=== PATIENT | male | born 1945 | race Caucasian/White ===

== ENCOUNTER 2018-03-14 18:28 | Inpatient (IN) | payer MEDICARE, SELFPAY ==
[2018-03-14 18:31] VITALS: BP 154/89; PULSE 121; RESP 18; TEMP 37.8; O2SAT 97; BMI 26.8
--- NOTE | 2018-03-14 19:04 | ED.LOWEXIN ---
HPI - Extremity Injury (Lower) <Shaunna Garcia PA-C - Last Filed: 03/14/18 22:30> General Chief Complaint: Extremity Injury, Lower Stated Complaint: LEFT FOOT ULCER Time Seen by Provider: 03/14/18 18:52 Source: patient Mode of arrival: ambulatory Limitations: no limitations History of Present Illness HPI Narrative: This 72-year-old male comes in due to great toe wound and infection on his left foot . He states that [place] couple of days ago with pain and swelling. He states that blood clot was ruled out. He was found to have high blood sugars, started on metformin, also given prescriptions for Keflex and doxycycline and given IV abx as well. He states that the swelling in his leg is actually better today and he thinks that his temperature was high when he came in because he was blasting the heater in his truck. He states that he has not had fever at home. He states that the toe and leg are slightly stiff, not painful. He denies any other new symptoms such as chest pain, dyspnea, or vomiting. He denies any known injury or contusions. He states he came in due to the area looking more red today. He did have foot fungus recently, denies any trauma Related Data Home Medications Medication Instructions Recorded Confirmed cephalexin 500 mg PO QID 03/14/18 03/14/18 doxycycline monohydrate 100 mg PO BID 03/14/18 03/14/18 metformin 500 mg PO BID 03/14/18 03/14/18 oxycodone 10 mg PO QID PRN 03/14/18 03/14/18 Allergies Allergy/AdvReac Type Severity Reaction Status Date / Time dexamethasone Allergy Verified 03/14/18 18:31 quinine Allergy Verified 03/14/18 18:31 Sulfa (Sulfonamide Allergy Verified 03/14/18 18:31 Antibiotics) Review of Systems <IFTIKHAR Joy Last Filed: 03/14/18 22:30> Review of Systems All systems reviewed & are unremarkable except as noted in HPI and below PFSH <IFTIKHAR Joy Last Filed: 03/14/18 22:30> Comment: Nonsmoker, no street drugs or EtOH Exam <IFTIKHAR Joy Last Filed: 03/14/18 22:30> Narrative Exam Narrative: GENERAL APPEARANCE: Patient sitting comfortably, in no distress. NECK/THYROID: Neck supple LUNGS: Clear to auscultation bilaterally. HEART: Regular rate and rhythm without murmur, normal S1, S2, no S3 or S4. ABDOMEN: Soft, NT, ND, + BS x 4 quadrants EXTREMITIES: No cyanosis or edema on the right. Left is moderately edematous, there is some dusky discoloration at the distal right great toe. No calf tenderness. PT and DP pulses audible with Doppler NEUROLOGIC: Alert and oriented, normal speech, and coordination. DERMATOLOGIC: Left great toe is edematous, macerated, with a small shallow scabbed ulceration on the dorsum, and a wound in the interdigital space that is approximately 5 mm deep with probe. There is erythema extending from the great toe more than 20 cm up the central karimi and medial karimi, non circumferential, also warm to touch Initial Vital Signs Initial Vital Signs: Vital Signs Temperature 100.1 F H 03/14/18 18:31 Pulse Rate 121 H 03/14/18 18:31 Respiratory Rate 18 03/14/18 18:31 Blood Pressure 154/89 H 03/14/18 18:31 Pulse Oximetry 97 03/14/18 18:31 <Tamanna Glez DO - Last Filed: 03/14/18 23:12> Initial Vital Signs Initial Vital Signs: Vital Signs Temperature 100.1 F H 03/14/18 18:31 Pulse Rate 121 H 03/14/18 18:31 Respiratory Rate 18 03/14/18 18:31 Blood Pressure 154/89 H 03/14/18 18:31 Pulse Oximetry 97 03/14/18 18:31 Course <Shaunna Garcia PA-C - Last Filed: 03/14/18 22:30> Additional Information: 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 Ferrell electronics design engineer hospitalist, reviewed patient's new diagnosis of diabetes, elevated inflammatory markers, fever, tachycardia along with concern for osteomyelitis with clearly worsening cellulitis on antibiotics. He is agreeable with admission. He requested d/c Metformin and change to SS insulin. Second dose of vancomycin was ordered for morning along with MRI. Patient is not having increased pain and can take his usual oxycodone for pain. Diabetic diet ordered. Plan now is for hospitalist to see patient in a.m. and consult orthopedics pending f/u testing and MRI. Orders Ordered: ED Orders 03/14/18 19:09 XR foot LT min 3V Stat 03/14/18 20:14 Blood Culture Stat 03/14/18 20:18 C-Reactive Protein Quant Stat Complete Blood Count AUTO DIFF Stat Comprehensive Metabolic Panel Stat Erythrocyte Sedimentation Rate Stat Lactate (Lactic Acid) Stat Partial Thromboplastin Time Stat Prothrombin Time INR Stat Urine Microscopic Stat 03/14/18 21:00 Wound Culture and Gram Stain Stat 03/15/18 07:00 MR foot LT wo/w con Stat Dextrose (D50w) 25 gm IV PRN PRN; Protocol PRN Reason: Hypoglycemia Sodium Chloride (Normal Saline 0.9%) 1,000 mls @ 125 mls/hr IV CONT FAVIAN Last Admin: 03/14/18 22:51 Dose: 125 mls/hr Vancomycin HCl/Dextrose (Vancomycin) 1,000 mg in 200 mls @ 200 mls/hr IV Q24H FAVIAN Insulin Aspart (Novolog Flexpen) 0 unit SUBCUT ACHS FAVIAN; Protocol Oxycodone HCl (Percolone) 10 mg PO QID PRN PRN Reason: Back Pain Last Admin: 03/14/18 22:56 Dose: 10 mg Discontinued Medications Sodium Chloride (Normal Saline 0.9%) 1,000 mls @ 1,000 mls/hr IV BOLUS ONE Stop: 03/14/18 20:07 Last Infusion: 03/14/18 21:50 Dose: 0 mls/hr Admin: 03/14/18 19:50 Dose: 1,000 mls/hr Vancomycin HCl 1,500 mg/ (Sodium Chloride) 500 mls @ 333.333 mls/hr IV NOW ONE Stop: 03/14/18 19:51 Last Infusion: 03/14/18 22:25 Dose: 333.333 mls/hr Admin: 03/14/18 20:29 Dose: 333.333 mls/hr Vancomycin HCl 1,500 mg/ (Sodium Chloride) 500 mls @ 333.333 mls/hr IV [facility] Vital Signs - 8 hr 03/14/18 18:31 03/14/18 19:44 03/14/18 19:47 Temperature 100.1 F H 100.5 F H Pulse Rate 121 H 108 H Pulse Rate [Left Dorsalis Pedis] 106 H Respiratory Rate 18 19 Blood Pressure 154/89 H Blood Pressure [Right Arm] 149/88 H Pulse Oximetry 97 99 03/14/18 20:06 03/14/18 21:21 03/14/18 22:26 Temperature 98.7 F 99.1 F Pulse Rate 101 H 96 H 75 Pulse Rate [Left Dorsalis Pedis] Respiratory Rate 18 20 18 Blood Pressure 139/74 Blood Pressure [Right Arm] 166/99 H 154/83 H Pulse Oximetry 100 99 100 <Tamanna Glez, - Last Filed: 03/14/18 23:12> Orders Ordered: ED Orders 03/14/18 19:09 XR foot LT min 3V Stat 03/14/18 20:14 Blood Culture Stat 03/14/18 20:18 C-Reactive Protein Quant Stat Complete Blood Count AUTO DIFF Stat Comprehensive Metabolic Panel Stat Erythrocyte Sedimentation Rate Stat Lactate (Lactic Acid) Stat Partial Thromboplastin Time Stat Prothrombin Time INR Stat Urine Microscopic Stat 03/14/18 21:00 Wound Culture and Gram Stain Stat 03/15/18 07:00 MR foot LT wo/w con Stat Dextrose (D50w) 25 gm IV PRN PRN; Protocol PRN Reason: Hypoglycemia Sodium Chloride (Normal Saline 0.9%) 1,000 mls @ 125 mls/hr IV CONT FAVIAN Last Admin: 03/14/18 22:51 Dose: 125 mls/hr Vancomycin HCl/Dextrose (Vancomycin) 1,000 mg in 200 mls @ 200 mls/hr IV Q24H [facility] Insulin Aspart (Novolog Flexpen) 0 unit SUBCUT ACHS F[facility]IAN; Protocol Oxycodone HCl (Percolone) 10 mg PO QID PRN PRN Reason: Back Pain Last Admin: 03/14/18 22:56 Dose: 10 mg Discontinued Medications Sodium Chloride (Normal Saline 0.9%) 1,000 mls @ 1,000 mls/hr IV BOLUS ONE Stop: 03/14/18 20:07 Last Infusion: 03/14/18 21:50 Dose: 0 mls/hr Admin: 03/14/18 19:50 Dose: 1,000 mls/hr Vancomycin HCl 1,500 mg/ (Sodium Chloride) 500 mls @ 333.333 mls/hr IV NOW ONE Stop: 03/14/18 19:51 Last Infusion: 03/14/18 22:25 Dose: 333.333 mls/hr Admin: 03/14/18 20:29 Dose: 333.333 mls/hr Vancomycin HCl 1,500 mg/ (Sodium Chloride) 500 mls @ 333.333 mls/hr IV SEEINSTR [facility] Vital Signs - 8 hr 03/14/18 18:31 03/14/18 19:44 03/14/18 19:47 Temperature 100.1 F H 100.5 F H Pulse Rate 121 H 108 H Pulse Rate [Left Dorsalis Pedis] 106 H Respiratory Rate 18 19 Blood Pressure 154/89 H Blood Pressure [Right Arm] 149/88 H Pulse Oximetry 97 99 03/14/18 20:06 03/14/18 21:21 03/14/18 22:26 Temperature 98.7 F 99.1 F Pulse Rate 101 H 96 H 75 Pulse Rate [Left Dorsalis Pedis] Respiratory Rate 18 20 18 Blood Pressure 139/74 Blood Pressure [Right Arm] 166/99 H 154/83 H Pulse Oximetry 100 99 100 MDM - Extremity Injury (Lower) <Shaunna Garcia PA-C - Last Filed: 03/14/18 22:30> Lab Data Result diagrams: 03/14/18 20:18 03/14/18 20:18 Lab Results 03/14/18 03/14/18 03/14/18 Range/Units 20:18 20:18 20:18 WBC 11.5 H (4.5-11.0) X10^3/uL RBC 4.02 L (4.5-5.9) X10^6/uL Hgb 11.8 L (13.5-17.5) g/dL Hct 35.7 L (41-53) % MCV 88.9 (80-100) fL MCH 29.3 (26-34) PG MCHC 33.0 (30-36) % RDW 13.7 (11.6-14.8) % Plt Count 330 (150-400) X10^3/uL Neut % (Auto) 79.0 H (50-75) % Lymph % (Auto) 9.4 L (25-40) % Stark % (Auto) 10.4 (3-14) % Eos % (Auto) 0.6 L (2-4) % Baso % (Auto) 0.6 (0-2) % Neut # (Auto) 9100 H (6756-8668) /uL ESR (0-15) MM/HR PT 13.6 H (10.1-12.7) SECONDS INR 1.3 (0.9-1.3) APTT 29 (26.4-36.2) SECONDS Sodium (137-145) mmol/L Potassium (3.4-5.1) mmol/L Chloride (98-107) mmol/L Carbon Dioxide (22-32) mmol/L BUN (9-20) mg/dL Creatinine (0.66-1.25) mg/dL Estimated GFR (>60) mL/min BUN/Creatinine Ratio (6-22) Glucose (80-110) mg/dL Lactate 1.8 (0.7-2.1) mmol/L Calcium (8.4-10.2) mg/dL Total Bilirubin (0.2-1.3) mg/dL AST (17-59) IU/L ALT (21-72) IU/L Alkaline Phosphatase (38-126) U/L C-Reactive Protein (<1.0) mg/dL Total Protein (6.3-8.2) g/dL Albumin (3.5-5.0) g/dL Globulin (1.7-4.1) g/dL Albumin/Globulin Ratio (1.0-2.8) Urine RBC (0-5/HPF) Urine WBC (0-5/HPF) Ur Squamous Epith Cells Urine Bacteria (None) Ur Culture Indicated? Micro UA Comment 03/14/18 03/14/18 03/14/18 Range/Units 20:18 20:18 20:18 WBC (4.5-11.0) X10^3/uL RBC (4.5-5.9) X10^6/uL Hgb (13.5-17.5) g/dL Hct (41-53) % MCV (80-100) fL MCH (26-34) PG MCHC (30-36) % RDW (11.6-14.8) % Plt Count (150-400) X10^3/uL Neut % (Auto) (50-75) % Lymph % (Auto) (25-40) % Stark % (Auto) (3-14) % Eos % (Auto) (2-4) % Baso % (Auto) (0-2) % Neut # (Auto) (7468-4410) /uL ESR 79 H (0-15) MM/HR PT (10.1-12.7) SECONDS INR (0.9-1.3) APTT (26.4-36.2) SECONDS Sodium (137-145) mmol/L Potassium (3.4-5.1) mmol/L Chloride (98-107) mmol/L Carbon Dioxide (22-32) mmol/L BUN (9-20) mg/dL Creatinine (0.66-1.25) mg/dL Estimated GFR (>60) mL/min BUN/Creatinine Ratio (6-22) Glucose (80-110) mg/dL Lactate (0.7-2.1) mmol/L Calcium (8.4-10.2) mg/dL Total Bilirubin (0.2-1.3) mg/dL AST (17-59) IU/L ALT (21-72) IU/L Alkaline Phosphatase (38-126) U/L C-Reactive Protein 35.4 H (<1.0) mg/dL Total Protein (6.3-8.2) g/dL Albumin (3.5-5.0) g/dL Globulin (1.7-4.1) g/dL Albumin/Globulin Ratio (1.0-2.8) Urine RBC 0-1/hpf (0-5/HPF) Urine WBC 0-1/hpf (0-5/HPF) Ur Squamous Epith Cells 0-1 /hpf Urine Bacteria None seen (None) Ur Culture Indicated? Cult not indicated Micro UA Comment Not Reportable 03/14/18 Range/Units 20:18 WBC (4.5-11.0) X10^3/uL RBC (4.5-5.9) X10^6/uL Hgb (13.5-17.5) g/dL Hct (41-53) % MCV (80-100) fL MCH (26-34) PG MCHC (30-36) % RDW (11.6-14.8) % Plt Count (150-400) X10^3/uL Neut % (Auto) (50-75) % Lymph % (Auto) (25-40) % Stark % (Auto) (3-14) % Eos % (Auto) (2-4) % Baso % (Auto) (0-2) % Neut # (Auto) (6637-5110) /uL ESR (0-15) MM/HR PT (10.1-12.7) SECONDS INR (0.9-1.3) APTT (26.4-36.2) SECONDS Sodium 139 (137-145) mmol/L Potassium 5.1 (3.4-5.1) mmol/L Chloride 99 (98-107) mmol/L Carbon Dioxide 24 (22-32) mmol/L BUN 40 H (9-20) mg/dL Creatinine 1.80 H (0.66-1.25) mg/dL Estimated GFR 37.4 L (>60) mL/min BUN/Creatinine Ratio 22.2 H (6-22) Glucose 209 H (80-110) mg/dL Lactate (0.7-2.1) mmol/L Calcium 9.0 (8.4-10.2) mg/dL Total Bilirubin 0.5 (0.2-1.3) mg/dL AST 27 (17-59) IU/L ALT 26 (21-72) IU/L Alkaline Phosphatase 107 (38-126) U/L C-Reactive Protein (<1.0) mg/dL Total Protein 6.6 (6.3-8.2) g/dL Albumin 3.7 (3.5-5.0) g/dL Globulin 2.9 (1.7-4.1) g/dL Albumin/Globulin Ratio 1.3 (1.0-2.8) Urine RBC (0-5/HPF) Urine WBC (0-5/HPF) Ur Squamous Epith Cells Urine Bacteria (None) Ur Culture Indicated? Micro UA Comment Point of Care Testing Glucose POC 220 Urine Dip Bedside Urine Glucose 250 mg/dl Bedside Urine Bilirubin - Negative Bedside Urine Ketone - Negative Urine Specific [place] 1.015 Bedside Urine Occult Blood +/- Bedside Urine pH 6.5 Bedside Urine Protein + 30 Bedside Urine Urobilinogen - Negative Bedside Urine Nitrite - Negative Bedside Urine Leukocytes - Negative Esterase Imaging Data foot xray: Radiologist's impression: [address] [address] XRay Report Signed Patient: Kashif Gomez AMR#: [id number] : 7Acct:[id number] Age/Sex: 72 / MDate of Service: 03/14/18 Loc: ED Accession Number: [id number] Procedure: XR foot LT min 3V Ordering Provider: Shaunna Garcia P.A-C PROCEDURE: XR FOOT LT MIN 3V INDICATIONS: Infection TECHNIQUE: 3 views of the foot were acquired. COMPARISON: None. FINDINGS: Bones: No fractures or dislocations. Lytic-appearing focus involving the distal aspect of the proximal phalanx of the great toe along the medial aspect. Moderate first MTP joint degeneration. Plantar and posterior calcaneal spur. Great toe soft tissue swelling. IMPRESSION: Possible osteomyelitis involving the proximal phalanx of the great toe at the interphalangeal joint. If further characterization is required, contrast-enhanced forefoot MRI could be performed versus continued short interval serial radiographic surveillance. Diffuse great toe soft tissue swelling. Dictated by: Carmelo Em M.D. on 03/14/2018 at 19:51 Approved by: Carmelo Em M.D. on 03/14/2018 at 19:54 <Tamanna Glez, - Last Filed: 03/14/18 23:12> Lab Data Lab Results 03/14/18 03/14/18 03/14/18 Range/Units 20:18 20:18 20:18 WBC 11.5 H (4.5-11.0) X10^3/uL RBC 4.02 L (4.5-5.9) X10^6/uL Hgb 11.8 L (13.5-17.5) g/dL Hct 35.7 L (41-53) % MCV 88.9 (80-100) fL MCH 29.3 (26-34) PG MCHC 33.0 (30-36) % RDW 13.7 (11.6-14.8) % Plt Count 330 (150-400) X10^3/uL Neut % (Auto) 79.0 H (50-75) % Lymph % (Auto) 9.4 L (25-40) % Stark % (Auto) 10.4 (3-14) % Eos % (Auto) 0.6 L (2-4) % Baso % (Auto) 0.6 (0-2) % Neut # (Auto) 9100 H (3339-5286) /uL ESR (0-15) MM/HR PT 13.6 H (10.1-12.7) SECONDS INR 1.3 (0.9-1.3) APTT 29 (26.4-36.2) SECONDS Sodium (137-145) mmol/L Potassium (3.4-5.1) mmol/L Chloride (98-107) mmol/L Carbon Dioxide (22-32) mmol/L BUN (9-20) mg/dL Creatinine (0.66-1.25) mg/dL Estimated GFR (>60) mL/min BUN/Creatinine Ratio (6-22) Glucose (80-110) mg/dL Lactate 1.8 (0.7-2.1) mmol/L Calcium (8.4-10.2) mg/dL Total Bilirubin (0.2-1.3) mg/dL AST (17-59) IU/L ALT (21-72) IU/L Alkaline Phosphatase (38-126) U/L C-Reactive Protein (<1.0) mg/dL Total Protein (6.3-8.2) g/dL Albumin (3.5-5.0) g/dL Globulin (1.7-4.1) g/dL Albumin/Globulin Ratio (1.0-2.8) Urine RBC (0-5/HPF) Urine WBC (0-5/HPF) Ur Squamous Epith Cells Urine Bacteria (None) Ur Culture Indicated? Micro UA Comment 03/14/18 03/14/18 03/14/18 Range/Units 20:18 20:18 20:18 WBC (4.5-11.0) X10^3/uL RBC (4.5-5.9) X10^6/uL Hgb (13.5-17.5) g/dL Hct (41-53) % MCV (80-100) fL MCH (26-34) PG MCHC (30-36) % RDW (11.6-14.8) % Plt Count (150-400) X10^3/uL Neut % (Auto) (50-75) % Lymph % (Auto) (25-40) % Stark % (Auto) (3-14) % Eos % (Auto) (2-4) % Baso % (Auto) (0-2) % Neut # (Auto) (3973-6628) /uL ESR 79 H (0-15) MM/HR PT (10.1-12.7) SECONDS INR (0.9-1.3) APTT (26.4-36.2) SECONDS Sodium (137-145) mmol/L Potassium (3.4-5.1) mmol/L Chloride (98-107) mmol/L Carbon Dioxide (22-32) mmol/L BUN (9-20) mg/dL Creatinine (0.66-1.25) mg/dL Estimated GFR (>60) mL/min BUN/Creatinine Ratio (6-22) Glucose (80-110) mg/dL Lactate (0.7-2.1) mmol/L Calcium (8.4-10.2) mg/dL Total Bilirubin (0.2-1.3) mg/dL AST (17-59) IU/L ALT (21-72) IU/L Alkaline Phosphatase (38-126) U/L C-Reactive Protein 35.4 H (<1.0) mg/dL Total Protein (6.3-8.2) g/dL Albumin (3.5-5.0) g/dL Globulin (1.7-4.1) g/dL Albumin/Globulin Ratio (1.0-2.8) Urine RBC 0-1/hpf (0-5/HPF) Urine WBC 0-1/hpf (0-5/HPF) Ur Squamous Epith Cells 0-1 /hpf Urine Bacteria None seen (None) Ur Culture Indicated? Cult not indicated Micro UA Comment Not Reportable 03/14/18 Range/Units 20:18 WBC (4.5-11.0) X10^3/uL RBC (4.5-5.9) X10^6/uL Hgb (13.5-17.5) g/dL Hct (41-53) % MCV (80-100) fL MCH (26-34) PG MCHC (30-36) % RDW (11.6-14.8) % Plt Count (150-400) X10^3/uL Neut % (Auto) (50-75) % Lymph % (Auto) (25-40) % Stark % (Auto) (3-14) % Eos % (Auto) (2-4) % Baso % (Auto) (0-2) % Neut # (Auto) (8867-5302) /uL ESR (0-15) MM/HR PT (10.1-12.7) SECONDS INR (0.9-1.3) APTT (26.4-36.2) SECONDS Sodium 139 (137-145) mmol/L Potassium 5.1 (3.4-5.1) mmol/L Chloride 99 (98-107) mmol/L Carbon Dioxide 24 (22-32) mmol/L BUN 40 H (9-20) mg/dL Creatinine 1.80 H (0.66-1.25) mg/dL Estimated GFR 37.4 L (>60) mL/min BUN/Creatinine Ratio 22.2 H (6-22) Glucose 209 H (80-110) mg/dL Lactate (0.7-2.1) mmol/L Calcium 9.0 (8.4-10.2) mg/dL Total Bilirubin 0.5 (0.2-1.3) mg/dL AST 27 (17-59) IU/L ALT 26 (21-72) IU/L Alkaline Phosphatase 107 (38-126) U/L C-Reactive Protein (<1.0) mg/dL Total Protein 6.6 (6.3-8.2) g/dL Albumin 3.7 (3.5-5.0) g/dL Globulin 2.9 (1.7-4.1) g/dL Albumin/Globulin Ratio 1.3 (1.0-2.8) Urine RBC (0-5/HPF) Urine WBC (0-5/HPF) Ur Squamous Epith Cells Urine Bacteria (None) Ur Culture Indicated? Micro UA Comment Point of Care Testing Glucose POC 220 Urine Dip Bedside Urine Glucose 250 mg/dl Bedside Urine Bilirubin - Negative Bedside Urine Ketone - Negative Urine Specific [place] 1.015 Bedside Urine Occult Blood +/- Bedside Urine pH 6.5 Bedside Urine Protein + 30 Bedside Urine Urobilinogen - Negative Bedside Urine Nitrite - Negative Bedside Urine Leukocytes - Negative Esterase Discharge Plan Departure Patient Disposition: Admitted As Inpatient Clinical Impression: Osteomyelitis Discharge Date/Time: 03/14/18 22:10 Interventions: ED Discharge Assessment Last Done: 03/14/18 22:26 Admit Date/Time: 03/14/18 22:02 Admit Provider: Jesus Ferrell <Tamanna Glez DO - Last Filed: 03/14/18 23:12> Cosign ED Attending Cossaidaature Attestation: I was immediately available in the department for consultation. This documentation has been reviewed and I agree with assessment and plan, patient case was discussed. Patient was physically examined by myself and he has cellulitis with some pallor and darkening of the left great toe with quite a bit of swelling and skin breakdown between the toes and around. Patient's imaging is concerning for osteomyelitis he has an elevated CRP, ESR, was febrile here in the emergency department with tachycardia, concerning for sepsis. Vancomycin was started patient was admitted to the hospitalist service. Supervised by Tamanna Glez DO
--- NOTE | 2018-03-14 19:09 | DI.RAD.S_ITS ---
PROCEDURE: XR FOOT LT MIN 3V INDICATIONS: Infection TECHNIQUE: 3 views of the foot were acquired. COMPARISON: None. FINDINGS: Bones: No fractures or dislocations. Lytic-appearing focus involving the distal aspect of the proximal phalanx of the great toe along the medial aspect. Moderate first MTP joint degeneration. Plantar and posterior calcaneal spur. Great toe soft tissue swelling. IMPRESSION: Possible osteomyelitis involving the proximal phalanx of the great toe at the interphalangeal joint. If further characterization is required, contrast-enhanced forefoot MRI could be performed versus continued short interval serial radiographic surveillance. Diffuse great toe soft tissue swelling. Dictated by: Carmelo Em M.D. on 03/14/2018 at 19:51 Approved by: Carmelo Em M.D. on 03/14/2018 at 19:54
[2018-03-14 19:44] VITALS: PULSE 106
--- NOTE | 2018-03-14 19:46 | ED_ITS ---
HPI - Extremity Injury (Lower) <Shaunna Garcia PA-C - Last Filed: 03/14/18 22:30> General Chief Complaint: Extremity Injury, Lower Stated Complaint: LEFT FOOT ULCER Time Seen by Provider: 03/14/18 18:52 Source: patient Mode of arrival: ambulatory Limitations: no limitations History of Present Illness HPI Narrative: This 72-year-old male comes in due to great toe wound and infection on his left foot . He states that he was [place] couple of days ago with pain and swelling. He states that blood clot was ruled out. He was found to have high blood sugars, started on metformin, also given prescriptions for Keflex and doxycycline and given IV abx as well. He states that the swelling in his leg is actually better today and he thinks that his temperature was high when he came in because he was blasting the heater in his truck. He states that he has not had fever at home. He states that the toe and leg are slightly stiff, not painful. He denies any other new symptoms such as chest pain, dyspnea, or vomiting. He denies any known injury or contusions. He states he came in due to the area looking more red today. He did have foot fungus recently, denies any trauma Related Data Home Medications Medication Instructions Recorded Confirmed cephalexin 500 mg PO QID 03/14/18 03/14/18 doxycycline monohydrate 100 mg PO BID 03/14/18 03/14/18 metformin 500 mg PO BID 03/14/18 03/14/18 oxycodone 10 mg PO QID PRN 03/14/18 03/14/18 Allergies Allergy/AdvReac Type Severity Reaction Status Date / Time dexamethasone Allergy Verified 03/14/18 18:31 quinine Allergy Verified 03/14/18 18:31 Sulfa (Sulfonamide Allergy Verified 03/14/18 18:31 Antibiotics) Review of Systems <IFTIKHAR Joy Last Filed: 03/14/18 22:30> Review of Systems All systems reviewed & are unremarkable except as noted in HPI and below PFSH <IFTIKHAR Joy Last Filed: 03/14/18 22:30> Comment: Nonsmoker, no street drugs or EtOH Exam <IFTIKHAR Joy Last Filed: 03/14/18 22:30> Narrative Exam Narrative: GENERAL APPEARANCE: Patient sitting comfortably, in no distress. NECK/THYROID: Neck supple LUNGS: Clear to auscultation bilaterally. HEART: Regular rate and rhythm without murmur, normal S1, S2, no S3 or S4. ABDOMEN: Soft, NT, ND, + BS x 4 quadrants EXTREMITIES: No cyanosis or edema on the right. Left is moderately edematous, there is some dusky discoloration at the distal right great toe. No calf tenderness. PT and DP pulses audible with Doppler NEUROLOGIC: Alert and oriented, normal speech, and coordination. DERMATOLOGIC: Left great toe is edematous, macerated, with a small shallow scabbed ulceration on the dorsum, and a wound in the interdigital space that is approximately 5 mm deep with probe. There is erythema extending from the great toe more than 20 cm up the central karimi and medial karimi, non circumferential, also warm to touch Initial Vital Signs Initial Vital Signs: Vital Signs Temperature 100.1 F H 03/14/18 18:31 Pulse Rate 121 H 03/14/18 18:31 Respiratory Rate 18 03/14/18 18:31 Blood Pressure 154/89 H 03/14/18 18:31 Pulse Oximetry 97 03/14/18 18:31 <Tamanna Glez DO - Last Filed: 03/14/18 23:12> Initial Vital Signs Initial Vital Signs: Vital Signs Temperature 100.1 F H 03/14/18 18:31 Pulse Rate 121 H 03/14/18 18:31 Respiratory Rate 18 03/14/18 18:31 Blood Pressure 154/89 H 03/14/18 18:31 Pulse Oximetry 97 03/14/18 18:31 Course <Shaunna Garcia PA-C - Last Filed: 03/14/18 22:30> Additional Information: 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 He is agreeable with admission. He requested d/c Metformin and change to SS insulin. Second dose of vancomycin was ordered for morning along with MRI. Patient is not having increased pain and can take his usual oxycodone for pain. Diabetic diet ordered. Plan now is for hospitalist to see patient in a.m. and consult orthopedics pending f/u testing and MRI. Orders Ordered: ED Orders 03/14/18 19:09 XR foot LT min 3V Stat 03/14/18 20:14 Blood Culture Stat 03/14/18 20:18 C-Reactive Protein Quant Stat Complete Blood Count AUTO DIFF Stat Comprehensive Metabolic Panel Stat Erythrocyte Sedimentation Rate Stat Lactate (Lactic Acid) Stat Partial Thromboplastin Time Stat Prothrombin Time INR Stat Urine Microscopic Stat 03/14/18 21:00 Wound Culture and Gram Stain Stat 03/15/18 07:00 MR foot LT wo/w con Stat Dextrose (D50w) 25 gm IV PRN PRN; Protocol PRN Reason: Hypoglycemia Sodium Chloride (Normal Saline 0.9%) 1,000 mls @ 125 mls/hr IV CONT FAVIAN Last Admin: 03/14/18 22:51 Dose: 125 mls/hr Vancomycin HCl/Dextrose (Vancomycin) 1,000 mg in 200 mls @ 200 mls/hr IV Q24H FAVIAN Insulin Aspart (Novolog Flexpen) 0 unit SUBCUT ACHS FAVIAN; Protocol Oxycodone HCl (Percolone) 10 mg PO QID PRN PRN Reason: Back Pain Last Admin: 03/14/18 22:56 Dose: 10 mg Discontinued Medications Sodium Chloride (Normal Saline 0.9%) 1,000 mls @ 1,000 mls/hr IV BOLUS ONE Stop: 03/14/18 20:07 Last Infusion: 03/14/18 21:50 Dose: 0 mls/hr Admin: 03/14/18 19:50 Dose: 1,000 mls/hr Vancomycin HCl 1,500 mg/ (Sodium Chloride) 500 mls @ 333.333 mls/hr IV NOW ONE Stop: 03/14/18 19:51 Last Infusion: 03/14/18 22:25 Dose: 333.333 mls/hr Admin: 03/14/18 20:29 Dose: 333.333 mls/hr Vancomycin HCl 1,500 mg/ (Sodium Chloride) 500 mls @ 333.333 mls/hr IV SEEINSTR [facility] Vital Signs - 8 hr 03/14/18 18:31 03/14/18 19:44 03/14/18 19:47 Temperature 100.1 F H 100.5 F H Pulse Rate 121 H 108 H Pulse Rate [Left Dorsalis Pedis] 106 H Respiratory Rate 18 19 Blood Pressure 154/89 H Blood Pressure [Right Arm] 149/88 H Pulse Oximetry 97 99 03/14/18 20:06 03/14/18 21:21 03/14/18 22:26 Temperature 98.7 F 99.1 F Pulse Rate 101 H 96 H 75 Pulse Rate [Left Dorsalis Pedis] Respiratory Rate 18 20 18 Blood Pressure 139/74 Blood Pressure [Right Arm] 166/99 H 154/83 H Pulse Oximetry 100 99 100 <Tamanna Glez, - Last Filed: 03/14/18 23:12> Orders Ordered: ED Orders 03/14/18 19:09 XR foot LT min 3V Stat 03/14/18 20:14 Blood Culture Stat 03/14/18 20:18 C-Reactive Protein Quant Stat Complete Blood Count AUTO DIFF Stat Comprehensive Metabolic Panel Stat Erythrocyte Sedimentation Rate Stat Lactate (Lactic Acid) Stat Partial Thromboplastin Time Stat Prothrombin Time INR Stat Urine Microscopic Stat 03/14/18 21:00 Wound Culture and Gram Stain Stat 03/15/18 07:00 MR foot LT wo/w con Stat Dextrose (D50w) 25 gm IV PRN PRN; Protocol PRN Reason: Hypoglycemia Sodium Chloride (Normal Saline 0.9%) 1,000 mls @ 125 mls/hr IV CONT FAVIAN Last Admin: 03/14/18 22:51 Dose: 125 mls/hr Vancomycin HCl/Dextrose (Vancomycin) 1,000 mg in 200 mls @ 200 mls/hr IV Q24H FAVIAN Insulin Aspart (Novolog Flexpen) 0 unit SUBCUT ACHS FAVIAN; Protocol Oxycodone HCl (Percolone) 10 mg PO QID PRN PRN Reason: Back Pain Last Admin: 03/14/18 22:56 Dose: 10 mg Discontinued Medications Sodium Chloride (Normal Saline 0.9%) 1,000 mls @ 1,000 mls/hr IV BOLUS ONE Stop: 03/14/18 20:07 Last Infusion: 03/14/18 21:50 Dose: 0 mls/hr Admin: 03/14/18 19:50 Dose: 1,000 mls/hr Vancomycin HCl 1,500 mg/ (Sodium Chloride) 500 mls @ 333.333 mls/hr IV NOW ONE Stop: 03/14/18 19:51 Last Infusion: 03/14/18 22:25 Dose: 333.333 mls/hr Admin: 03/14/18 20:29 Dose: 333.333 mls/hr Vancomycin HCl 1,500 mg/ (Sodium Chloride) 500 mls @ 333.333 mls/hr IV SEEINSTR FAVIAN Vital Signs - 8 hr 03/14/18 18:31 03/14/18 19:44 03/14/18 19:47 Temperature 100.1 F H 100.5 F H Pulse Rate 121 H 108 H Pulse Rate [Left Dorsalis Pedis] 106 H Respiratory Rate 18 19 Blood Pressure 154/89 H Blood Pressure [Right Arm] 149/88 H Pulse Oximetry 97 99 03/14/18 20:06 03/14/18 21:21 03/14/18 22:26 Temperature 98.7 F 99.1 F Pulse Rate 101 H 96 H 75 Pulse Rate [Left Dorsalis Pedis] Respiratory Rate 18 20 18 Blood Pressure 139/74 Blood Pressure [Right Arm] 166/99 H 154/83 H Pulse Oximetry 100 99 100 MDM - Extremity Injury (Lower) <Shaunna Garcia PA-C - Last Filed: 03/14/18 22:30> Lab Data Result diagrams: 03/14/18 20:18 03/14/18 20:18 Lab Results 03/14/18 03/14/18 03/14/18 Range/Units 20:18 20:18 20:18 WBC 11.5 H (4.5-11.0) X10^3/uL RBC 4.02 L (4.5-5.9) X10^6/uL Hgb 11.8 L (13.5-17.5) g/dL Hct 35.7 L (41-53) % MCV 88.9 (80-100) fL MCH 29.3 (26-34) PG MCHC 33.0 (30-36) % RDW 13.7 (11.6-14.8) % Plt Count 330 (150-400) X10^3/uL Neut % (Auto) 79.0 H (50-75) % Lymph % (Auto) 9.4 L (25-40) % [place] % (Auto) 10.4 (3-14) % Eos % (Auto) 0.6 L (2-4) % Baso % (Auto) 0.6 (0-2) % Neut # (Auto) 9100 H (8408-9279) /uL ESR (0-15) MM/HR PT 13.6 H (10.1-12.7) SECONDS INR 1.3 (0.9-1.3) APTT 29 (26.4-36.2) SECONDS Sodium (137-145) mmol/L Potassium (3.4-5.1) mmol/L Chloride (98-107) mmol/L Carbon Dioxide (22-32) mmol/L BUN (9-20) mg/dL Creatinine (0.66-1.25) mg/dL Estimated GFR (>60) mL/min BUN/Creatinine Ratio (6-22) Glucose (80-110) mg/dL Lactate 1.8 (0.7-2.1) mmol/L Calcium (8.4-10.2) mg/dL Total Bilirubin (0.2-1.3) mg/dL AST (17-59) IU/L ALT (21-72) IU/L Alkaline Phosphatase (38-126) U/L C-Reactive Protein (<1.0) mg/dL Total Protein (6.3-8.2) g/dL Albumin (3.5-5.0) g/dL Globulin (1.7-4.1) g/dL Albumin/Globulin Ratio (1.0-2.8) Urine RBC (0-5/HPF) Urine WBC (0-5/HPF) Ur Squamous Epith Cells Urine Bacteria (None) Ur Culture Indicated? Micro UA Comment 03/14/18 03/14/18 03/14/18 Range/Units 20:18 20:18 20:18 WBC (4.5-11.0) X10^3/uL RBC (4.5-5.9) X10^6/uL Hgb (13.5-17.5) g/dL Hct (41-53) % MCV (80-100) fL MCH (26-34) PG MCHC (30-36) % RDW (11.6-14.8) % Plt Count (150-400) X10^3/uL Neut % (Auto) (50-75) % Lymph % (Auto) (25-40) % [place] % (Auto) (3-14) % Eos % (Auto) (2-4) % Baso % (Auto) (0-2) % Neut # (Auto) (1195-2393) /uL ESR 79 H (0-15) MM/HR PT (10.1-12.7) SECONDS INR (0.9-1.3) APTT (26.4-36.2) SECONDS Sodium (137-145) mmol/L Potassium (3.4-5.1) mmol/L Chloride (98-107) mmol/L Carbon Dioxide (22-32) mmol/L BUN (9-20) mg/dL Creatinine (0.66-1.25) mg/dL Estimated GFR (>60) mL/min BUN/Creatinine Ratio (6-22) Glucose (80-110) mg/dL Lactate (0.7-2.1) mmol/L Calcium (8.4-10.2) mg/dL Total Bilirubin (0.2-1.3) mg/dL AST (17-59) IU/L ALT (21-72) IU/L Alkaline Phosphatase (38-126) U/L C-Reactive Protein 35.4 H (<1.0) mg/dL Total Protein (6.3-8.2) g/dL Albumin (3.5-5.0) g/dL Globulin (1.7-4.1) g/dL Albumin/Globulin Ratio (1.0-2.8) Urine RBC 0-1/hpf (0-5/HPF) Urine WBC 0-1/hpf (0-5/HPF) Ur Squamous Epith Cells 0-1 /hpf Urine Bacteria None seen (None) Ur Culture Indicated? Cult not indicated Micro UA Comment Not Reportable 03/14/18 Range/Units 20:18 WBC (4.5-11.0) X10^3/uL RBC (4.5-5.9) X10^6/uL Hgb (13.5-17.5) g/dL Hct (41-53) % MCV (80-100) fL MCH (26-34) PG MCHC (30-36) % RDW (11.6-14.8) % Plt Count (150-400) X10^3/uL Neut % (Auto) (50-75) % Lymph % (Auto) (25-40) % [place] % (Auto) (3-14) % Eos % (Auto) (2-4) % Baso % (Auto) (0-2) % Neut # (Auto) (3636-9093) /uL ESR (0-15) MM/HR PT (10.1-12.7) SECONDS INR (0.9-1.3) APTT (26.4-36.2) SECONDS Sodium 139 (137-145) mmol/L Potassium 5.1 (3.4-5.1) mmol/L Chloride 99 (98-107) mmol/L Carbon Dioxide 24 (22-32) mmol/L BUN 40 H (9-20) mg/dL Creatinine 1.80 H (0.66-1.25) mg/dL Estimated GFR 37.4 L (>60) mL/min BUN/Creatinine Ratio 22.2 H (6-22) Glucose 209 H (80-110) mg/dL Lactate (0.7-2.1) mmol/L Calcium 9.0 (8.4-10.2) mg/dL Total Bilirubin 0.5 (0.2-1.3) mg/dL AST 27 (17-59) IU/L ALT 26 (21-72) IU/L Alkaline Phosphatase 107 (38-126) U/L C-Reactive Protein (<1.0) mg/dL Total Protein 6.6 (6.3-8.2) g/dL Albumin 3.7 (3.5-5.0) g/dL Globulin 2.9 (1.7-4.1) g/dL Albumin/Globulin Ratio 1.3 (1.0-2.8) Urine RBC (0-5/HPF) Urine WBC (0-5/HPF) Ur Squamous Epith Cells Urine Bacteria (None) Ur Culture Indicated? Micro UA Comment Point of Care Testing Glucose POC 220 Urine Dip Bedside Urine Glucose 250 mg/dl Bedside Urine Bilirubin - Negative Bedside Urine Ketone - Negative Urine Specific [place] 1.015 Bedside Urine Occult Blood +/- Bedside Urine pH 6.5 Bedside Urine Protein + 30 Bedside Urine Urobilinogen - Negative Bedside Urine Nitrite - Negative Bedside Urine Leukocytes - Negative Esterase Imaging Data foot xray: Radiologist's impression: [address] [address] XRay Report Signed Patient: Kashif Gomez AMR#: [id number] : 7Acct:[id number] Age/Sex: 72 / MDate of Service: 03/14/18 Loc: ED Accession Number: [id number] Procedure: XR foot LT min 3V Ordering Provider: Shaunna Garcia P.A-C PROCEDURE: XR FOOT LT MIN 3V INDICATIONS: Infection TECHNIQUE: 3 views of the foot were acquired. COMPARISON: None. FINDINGS: Bones: No fractures or dislocations. Lytic-appearing focus involving the distal aspect of the proximal phalanx of the great toe along the medial aspect. Moderate first MTP joint degeneration. Plantar and posterior calcaneal spur. Great toe soft tissue swelling. IMPRESSION: Possible osteomyelitis involving the proximal phalanx of the great toe at the interphalangeal joint. If further characterization is required, contrast- enhanced forefoot MRI could be performed versus continued short interval serial radiographic surveillance. Diffuse great toe soft tissue swelling. Dictated by: Carmelo Em M.D. on 03/14/2018 at 19:51 Approved by: Carmelo Em M.D. on 03/14/2018 at 19:54 <Tamanna Glez, - Last Filed: 03/14/18 23:12> Lab Data Lab Results 03/14/18 03/14/18 03/14/18 Range/Units 20:18 20:18 20:18 WBC 11.5 H (4.5-11.0) X10^3/uL RBC 4.02 L (4.5-5.9) X10^6/uL Hgb 11.8 L (13.5-17.5) g/dL Hct 35.7 L (41-53) % MCV 88.9 (80-100) fL MCH 29.3 (26-34) PG MCHC 33.0 (30-36) % RDW 13.7 (11.6-14.8) % Plt Count 330 (150-400) X10^3/uL Neut % (Auto) 79.0 H (50-75) % Lymph % (Auto) 9.4 L (25-40) % [place] % (Auto) 10.4 (3-14) % Eos % (Auto) 0.6 L (2-4) % Baso % (Auto) 0.6 (0-2) % Neut # (Auto) 9100 H (6965-8811) /uL ESR (0-15) MM/HR PT 13.6 H (10.1-12.7) SECONDS INR 1.3 (0.9-1.3) APTT 29 (26.4-36.2) SECONDS Sodium (137-145) mmol/L Potassium (3.4-5.1) mmol/L Chloride (98-107) mmol/L Carbon Dioxide (22-32) mmol/L BUN (9-20) mg/dL Creatinine (0.66-1.25) mg/dL Estimated GFR (>60) mL/min BUN/Creatinine Ratio (6-22) Glucose (80-110) mg/dL Lactate 1.8 (0.7-2.1) mmol/L Calcium (8.4-10.2) mg/dL Total Bilirubin (0.2-1.3) mg/dL AST (17-59) IU/L ALT (21-72) IU/L Alkaline Phosphatase (38-126) U/L C-Reactive Protein (<1.0) mg/dL Total Protein (6.3-8.2) g/dL Albumin (3.5-5.0) g/dL Globulin (1.7-4.1) g/dL Albumin/Globulin Ratio (1.0-2.8) Urine RBC (0-5/HPF) Urine WBC (0-5/HPF) Ur Squamous Epith Cells Urine Bacteria (None) Ur Culture Indicated? Micro UA Comment 03/14/18 03/14/18 03/14/18 Range/Units 20:18 20:18 20:18 WBC (4.5-11.0) X10^3/uL RBC (4.5-5.9) X10^6/uL Hgb (13.5-17.5) g/dL Hct (41-53) % MCV (80-100) fL MCH (26-34) PG MCHC (30-36) % RDW (11.6-14.8) % Plt Count (150-400) X10^3/uL Neut % (Auto) (50-75) % Lymph % (Auto) (25-40) % [place] % (Auto) (3-14) % Eos % (Auto) (2-4) % Baso % (Auto) (0-2) % Neut # (Auto) (6476-4127) /uL ESR 79 H (0-15) MM/HR PT (10.1-12.7) SECONDS INR (0.9-1.3) APTT (26.4-36.2) SECONDS Sodium (137-145) mmol/L Potassium (3.4-5.1) mmol/L Chloride (98-107) mmol/L Carbon Dioxide (22-32) mmol/L BUN (9-20) mg/dL Creatinine (0.66-1.25) mg/dL Estimated GFR (>60) mL/min BUN/Creatinine Ratio (6-22) Glucose (80-110) mg/dL Lactate (0.7-2.1) mmol/L Calcium (8.4-10.2) mg/dL Total Bilirubin (0.2-1.3) mg/dL AST (17-59) IU/L ALT (21-72) IU/L Alkaline Phosphatase (38-126) U/L C-Reactive Protein 35.4 H (<1.0) mg/dL Total Protein (6.3-8.2) g/dL Albumin (3.5-5.0) g/dL Globulin (1.7-4.1) g/dL Albumin/Globulin Ratio (1.0-2.8) Urine RBC 0-1/hpf (0-5/HPF) Urine WBC 0-1/hpf (0-5/HPF) Ur Squamous Epith Cells 0-1 /hpf Urine Bacteria None seen (None) Ur Culture Indicated? Cult not indicated Micro UA Comment Not Reportable 03/14/18 Range/Units 20:18 WBC (4.5-11.0) X10^3/uL RBC (4.5-5.9) X10^6/uL Hgb (13.5-17.5) g/dL Hct (41-53) % MCV (80-100) fL MCH (26-34) PG MCHC (30-36) % RDW (11.6-14.8) % Plt Count (150-400) X10^3/uL Neut % (Auto) (50-75) % Lymph % (Auto) (25-40) % [place] % (Auto) (3-14) % Eos % (Auto) (2-4) % Baso % (Auto) (0-2) % Neut # (Auto) (2018-3439) /uL ESR (0-15) MM/HR PT (10.1-12.7) SECONDS INR (0.9-1.3) APTT (26.4-36.2) SECONDS Sodium 139 (137-145) mmol/L Potassium 5.1 (3.4-5.1) mmol/L Chloride 99 (98-107) mmol/L Carbon Dioxide 24 (22-32) mmol/L BUN 40 H (9-20) mg/dL Creatinine 1.80 H (0.66-1.25) mg/dL Estimated GFR 37.4 L (>60) mL/min BUN/Creatinine Ratio 22.2 H (6-22) Glucose 209 H (80-110) mg/dL Lactate (0.7-2.1) mmol/L Calcium 9.0 (8.4-10.2) mg/dL Total Bilirubin 0.5 (0.2-1.3) mg/dL AST 27 (17-59) IU/L ALT 26 (21-72) IU/L Alkaline Phosphatase 107 (38-126) U/L C-Reactive Protein (<1.0) mg/dL Total Protein 6.6 (6.3-8.2) g/dL Albumin 3.7 (3.5-5.0) g/dL Globulin 2.9 (1.7-4.1) g/dL Albumin/Globulin Ratio 1.3 (1.0-2.8) Urine RBC (0-5/HPF) Urine WBC (0-5/HPF) Ur Squamous Epith Cells Urine Bacteria (None) Ur Culture Indicated? Micro UA Comment Point of Care Testing Glucose POC 220 Urine Dip Bedside Urine Glucose 250 mg/dl Bedside Urine Bilirubin - Negative Bedside Urine Ketone - Negative Urine Specific [place] 1.015 Bedside Urine Occult Blood +/- Bedside Urine pH 6.5 Bedside Urine Protein + 30 Bedside Urine Urobilinogen - Negative Bedside Urine Nitrite - Negative Bedside Urine Leukocytes - Negative Esterase Discharge Plan Departure Patient Disposition: Admitted As Inpatient Clinical Impression: Osteomyelitis Discharge Date/Time: 03/14/18 22:10 Interventions: ED Discharge Assessment Last Done: 03/14/18 22:26 Admit Date/Time: 03/14/18 22:02 Admit Provider: Jesus Ferrell <Tamanna Glez DO - Last Filed: 03/14/18 23:12> Cosign ED Attending Cossaidaature Attestation: I was immediately available in the department for consultation. This documentation has been reviewed and I agree with assessment and plan, patient case was discussed. Patient was physically examined by myself and he has cellulitis with some pallor and darkening of the left great toe with quite a bit of swelling and skin breakdown between the toes and around. Patient's imaging is concerning for osteomyelitis he has an elevated CRP, ESR, was febrile here in the emergency department with tachycardia, concerning for sepsis. Vancomycin was started patient was admitted to the hospitalist service. Supervised by Tamanna Glez DO
[2018-03-14 19:47] VITALS: BP 149/88; PULSE 108; RESP 19; TEMP 38.1; O2SAT 99
[2018-03-14] MEDS: SODIUM CHLORIDE 0.9% 1,000 ML 1000 ML IV (19:50)
[2018-03-14 20:06] VITALS: BP 166/99; PULSE 101; RESP 18; O2SAT 100
[2018-03-14] MEDS: VANCOMYCIN 1,500 MG in SODIUM CHLORIDE 0.9% 500 ML 333.333 ML IV (20:29)
[2018-03-14 20:33] LABS: Bacteria Urine None Seen
[2018-03-14 20:42] LABS: Add Manual Diff / Slide Review NO; Basophils Percent Auto 0.6 % (0-2); Eosinophils Percent Auto 0.6 % (2-4); Hematocrit 35.7 % (41-53); Hemoglobin 11.8 g/dL (13.5-17.5); INR 1.3 (0.9-1.3); Lymphocytes Percent Auto 9.4 % (25-40); Mean Corpuscular Hemoglobin 29.3 PG (26-34); Mean Corpuscular Volume 88.9 fL (80-100); Monocytes Percent Auto 10.4 % (3-14); Neutrophils Absolute Auto 9100 /uL (3000-5900); Platelet Count 330 X10^3/uL (150-400); Prothrombin Time 13.6 SECONDS (10.1-12.7); Red Blood Cell Count 4.02 X10^6/uL (4.5-5.9); Red Cell Distribution Width 13.7 % (11.6-14.8); White Blood Cell Count 11.5 X10^3/uL (4.5-11.0)
[2018-03-14 20:44] LABS: Culture Indicated Urine Cult Not Indicated; RBC Urine 0-1/HPF (0-5/HPF); Squamous Epithelial Cell Urine 0-1 /HPF; WBC Urine 0-1/HPF (0-5/HPF)
[2018-03-14 20:45] LABS: PTT Partial Thromboplastin Tim 29 SECONDS (26.4-36.2)
[2018-03-14 20:46] LABS: Lactate (Lactic Acid) 1.8 mmol/L (0.7-2.1)
[2018-03-14 21:11] LABS: Erythrocyte Sedimentation Rate 79 MM/HR (0-15)
[2018-03-14 21:21] VITALS: BP 154/83; PULSE 96; RESP 20; TEMP 37.1; O2SAT 99
[2018-03-14 21:36] LABS: C-Reactive Protein Quant 35.4 mg/dL (<1.0)
[2018-03-14 21:53] LABS: Alanine Aminotransferase 26 IU/L (21-72); Albumin 3.7 g/dL (3.5-5.0); Albumin Globulin Ratio 1.3 (1.0-2.8); Alkaline Phosphatase 107 U/L (38-126); Aspartate Aminotransferase 27 IU/L (17-59); BUN Creatinine Ratio 22.2 (6-22); Bilirubin Total 0.5 mg/dL (0.2-1.3); Blood Urea Nitrogen 40 mg/dL (9-20); Carbon Dioxide 24 mmol/L (22-32); Chloride 99 mmol/L (98-107); Estimated Glomerular Filt Rate 37.4 mL/min (>60); Globulin 2.9 g/dL (1.7-4.1); Glucose 209 mg/dL (80-110); HEMOLYSIS 15 (0-50); Potassium 5.1 mmol/L (3.4-5.1); Sodium 139 mmol/L (137-145); Total Protein 6.6 g/dL (6.3-8.2)
[2018-03-14 22:26] VITALS: BP 139/74; PULSE 75; RESP 18; TEMP 37.3; O2SAT 100
[2018-03-14 22:28] VITALS: BMI 26.8
[2018-03-14] MEDS: SODIUM CHLORIDE 0.9% 1,000 ML 125 ML IV (22:51)
[2018-03-14] MEDS: OXYCODONE IR 10 MG TABLET PO (22:56)
[2018-03-15] VITALS (18 sets, daily range): BP systolic 76–157; BP diastolic 47–86; PULSE 77–100; RESP 11–20; TEMP 36.3–37.4; O2SAT 95–100; BMI 26.8
--- NOTE | 2018-03-15 | PATH_ITS ---
[facility] Accession Number: [id number] . 01 Material submitted: . LEFT FOOT TISSUE . 01 Diagnosis: Left Foot Tissue, Debridement: Fragments of fibroadipose tissue with acute suppurative inflammation and necrosis. Negative for malignancy. MRV/03/17/2018 . 01 Electronically signed: . Juan Deluca MD, Pathologist NPI- [id number] . 01 Gross description: . LEFT FOOT TISSUE: Received in formalin are multiple fragment(s) of johnson, soft tissue measuring 1.5 x 1.0 x 0.3 cm in aggregate submitted entirely in 1 cassette(s) /CKI /CKI . 01 Pathologist provided ICD-10: L97.501 . 01 CPT . 241011 Specimen Comment: A duplicate report has been generated due to demographic updates. Performed at: [address] [facility] [id number] MD Sander Garza MD Phone: [phone]
[2018-03-15] MEDS: SODIUM CHLORIDE 0.9% 1,000 ML 125 ML IV ×2 (06:49→19:16)
--- NOTE | 2018-03-15 07:00 | DI.MRI.S_ITS ---
PROCEDURE: MR FOOT LT WO/W CON INDICATIONS: LEFT FOOT INFECTION TECHNIQUE: Noncontrast coronal T1 spin echo and STIR, sagittal T1 spin echo with fat saturation and STIR, axial T1 spin echo and T2 fast spin echo with fat saturation. After the administration of contrast, axial/sagittal/coronal T1 spin echo with fat saturation through the left midfoot and forefoot. COMPARISON: [facility], CR, XR FOOT LT MIN 3V, 03/14/2018, 19:20. FINDINGS: Image quality: Diagnostic. Bones: There is no acute fracture or dislocation identified involving the osseous structures of the left midfoot and forefoot. No suspicious osseous lesions are evident. Moderate to severe degenerative changes involving the midfoot and forefoot joints is more prominent along the medial mid foot and forefoot joint, best appreciated involving the 1st tarsal metatarsal and the 1st metatarsophalangeal joint. No hallux valgus deformity is evident. Areas of degenerative cystic change with reactive marrow edema are evident involving the heads of the 1st metatarsal and the head of the proximal phalanx of the great toe. No suspicious enhancement is identified. Soft tissues: There is extensive subcutaneous edema and enhancement diffusely throughout the imaged foot. Skin ulceration along the dorsal aspect of the great toe region is identified with an associated prominent her for the enhancing loculated fluid collection. This loculated fluid collection extends along the lateral aspect of the great toe and subsequently overlying the dorsal aspect of the 2nd metatarsal, measuring approximately 6.8 x 2.5 x 3.0 cm (image 21, series 12; image 14, series 11; and image 21, series 11). This fluid collection is noted to abut portions of the proximal and distal phalanges of the great toe as well as the 2nd metatarsal. Again, no abnormal marrow signal or enhancement is evident involving these adjacent bones. The flexor and extensor tendons of the forefoot appear be within normal limits without significant tearing. The Lisfranc ligament is not adequately seen. Diffuse muscle atrophy is identified. There may be flexor hallucis longus tendinopathy. IMPRESSION: 1. Extensive soft tissue edema and enhancement about the foot is suggestive of cellulitis. 2. Large loculated fluid collection along the 1st and 2nd toes is suspicious for an abscess. Please correlate clinically. 3. No convincing evidence to suggest osteomyelitis. 4. Prominent degenerative changes of the midfoot and forefoot joints. 5. Possible flexor hallucis longus tendinopathy. Dictated by: Behzad Reed M.D. on 03/15/2018 at 15:28 Approved by: Behzad Reed M.D. on 03/15/2018 at 15:37
[2018-03-15] MEDS: INSULIN ASPART 100 UNIT/ML INSULN PEN SUBCUT ×3 (08:03→20:49)
--- NOTE | 2018-03-15 08:41 | CM.DANOTE ---
Discharge Planning/Care Management DCP: assessement: case received, EMR reviewed (no H&P at this time) and met with pt. Introduced self and role. Pt is a 72 year old male who admitted to care of hospitalist team last night. Payer: Medicare and [employer]. PCP: Chloé Nguyen Next of Kin: Selma Gomez, a retired RN who worked many years for . Pt says she is his contact and his ex-. P: follow as POC unfolds to assist with d/c issues and options. CM Discharge Assessment Start: 03/15/18 08:38 Freq: Status: Active Protocol: Document 03/15/18 08:39 ITV (Rec: 03/15/18 08:41 ITV [id number]) Discharge Planning Assessment History Provided By Patient Medical Record Prior Living Arrangements House Comment I stay with a rigoberto near [facility] Mostly I just sleep there. Pt uses PO box for his address Household Members friend(s) Type of transporation used prior to Drives own vehicle admit Independent with ADL's Yes Is patient alert and oriented? Yes Caregiver for Another No DME Already Rented / Owned Cane Comment I have used the cane because of my back for a long time Whiteboard Updated in Patient Room with Yes name and ext. # of Stove Fitter Review Status In Process Next Review Type Continued Stay Review
[2018-03-15] MEDS: OXYCODONE IR 10 MG TABLET PO ×2 (09:23→20:05)
--- NOTE | 2018-03-15 11:12 | PM.HP.1 ---
History of Present Illness Date Patient Seen: 03/15/18 Chief complaint: LEFT FOOT ULCER Narrative: Patient is a 72 y/o male with a new diagnosis of diabetes mellitus, peripheral neuropathy, who reports he developed redness of the left foot on Wednesday 4 nights prior to admission. He reports pin point redness of the foot. He was evaluated at [facility] in [place] on Wednesday. They started him on metformin, doxycycline, and keflex for his cellulitis. The patient denies any pain, fever, chills, nausea, vomiting, or prior history of cellulitis. The patient reports he developed increased redness, blistering of the foot/toe the following day. He went back to [facility] where they recommended hospitalization for treatment. The patient declined as he wanted to be hospitalized closer to home in [place]. He presented to the Emergency Department last night where foot xrays confirmed what appears to be osteomyelitis. The patient reports no factors that make his symptoms better or worse. He was newly diagnosed with diabetes. He has chronic back pain with associated numbness which he attributed his foot numbness too. The patient is admitted for further evaluation. Patient History Medical History Diabetes (Acute) HTN (hypertension) (Chronic) Neuropathy (Chronic) Spinal stenosis (Chronic) Surgical History History of tonsillectomy (Resolved) Family & Social History Social History: household members friend(s) Prior Living Arrangements House Safety & Behavioral: Feels Safe in Current Yes Environment Been Physically Hurt or No Threatened By a Person Suicidal Ideation Description None Suicide Plan Description No Plan Tobacco & Substance use: Smoking Status Never smoker alcohol intake never Substance Use Type does not use Meds Home Medications Medication Instructions Recorded Confirmed Type cephalexin 500 mg PO QID 03/14/18 03/14/18 History doxycycline monohydrate 100 mg PO BID 03/14/18 03/14/18 History metformin 500 mg PO BID 03/14/18 03/14/18 History oxycodone 10 mg PO QID PRN 03/14/18 03/14/18 History Allergies Allergy/AdvReac Type Severity Reaction Status Date / Time dexamethasone Allergy Verified 03/14/18 18:31 quinine Allergy Verified 03/14/18 18:31 Sulfa (Sulfonamide Allergy Verified 03/14/18 18:31 Antibiotics) Review of Systems Review of Systems All systems reviewed & are unremarkable except as noted in HPI and below Exam Vital Signs (past 8 hours): - 03/15/18 04:38 03/15/18 07:55 Temperature 97.4 F L 98.6 F Pulse Rate 85 82 Respiratory Rate 16 16 Blood Pressure 123/76 130/75 Pulse Oximetry 99 97 Oxygen Delivery Method Room Air Oxygen Flow Rate 0 Narrative Exam Narrative: Pleasant male in no acute distress HEENT: NC/AT, EOMI, Oropharynx : Clear Neck: supple Lungs: Clear to auscultation CV: RRR nl Sl S2 ABd: Soft/ non tender/ non distended/ no HSM EXT: left foot with erythema, edema along dorsal surface, left great toe swollen with blistering, oozing of clear fluid, foot is warm to touch Plantar surface fluctuant, non tender Neuro: non focal Objective Labs Result Diagrams: 03/14/18 20:18 03/14/18 20:18 Labs: Laboratory Results - last 24 hr 03/14/18 03/14/18 03/14/18 20:18 20:18 20:18 WBC 11.5 H RBC 4.02 L Hgb 11.8 L Hct 35.7 L MCV 88.9 MCH 29.3 MCHC 33.0 RDW 13.7 Plt Count 330 Neut % (Auto) 79.0 H Lymph % (Auto) 9.4 L [place] % (Auto) 10.4 Eos % (Auto) 0.6 L Baso % (Auto) 0.6 Neut # (Auto) 9100 H ESR PT 13.6 H INR 1.3 APTT 29 Sodium Potassium Chloride Carbon Dioxide BUN Creatinine Estimated GFR BUN/Creatinine Ratio Glucose Lactate 1.8 Calcium Total Bilirubin AST ALT Alkaline Phosphatase C-Reactive Protein Total Protein Albumin Globulin Albumin/Globulin Ratio Urine RBC Urine WBC Ur Squamous Epith Cells Urine Bacteria Ur Culture Indicated? Micro UA Comment 03/14/18 03/14/18 03/14/18 20:18 20:18 20:18 WBC RBC Hgb Hct MCV MCH MCHC RDW Plt Count Neut % (Auto) Lymph % (Auto) [place] % (Auto) Eos % (Auto) Baso % (Auto) Neut # (Auto) ESR 79 H PT INR APTT Sodium Potassium Chloride Carbon Dioxide BUN Creatinine Estimated GFR BUN/Creatinine Ratio Glucose Lactate Calcium Total Bilirubin AST ALT Alkaline Phosphatase C-Reactive Protein 35.4 H Total Protein Albumin Globulin Albumin/Globulin Ratio Urine RBC 0-1/hpf Urine WBC 0-1/hpf Ur Squamous Epith Cells 0-1 /hpf Urine Bacteria None seen Ur Culture Indicated? Cult not indicated Micro UA Comment Not Reportable 03/14/18 20:18 WBC RBC Hgb Hct MCV MCH MCHC RDW Plt Count Neut % (Auto) Lymph % (Auto) [place] % (Auto) Eos % (Auto) Baso % (Auto) Neut # (Auto) ESR PT INR APTT Sodium 139 Potassium 5.1 Chloride 99 Carbon Dioxide 24 BUN 40 H Creatinine 1.80 H Estimated GFR 37.4 L BUN/Creatinine Ratio 22.2 H Glucose 209 H Lactate Calcium 9.0 Total Bilirubin 0.5 AST 27 ALT 26 Alkaline Phosphatase 107 C-Reactive Protein Total Protein 6.6 Albumin 3.7 Globulin 2.9 Albumin/Globulin Ratio 1.3 Urine RBC Urine WBC Ur Squamous Epith Cells Urine Bacteria Ur Culture Indicated? Micro UA Comment Assessment & Plan (1) Diabetic foot ulcer: Problem details: Patient was started on Vancomycin, will Add Ceftriaxone as I suspect polymicrobial infection Current visit: Yes Status: Acute (2) Diabetes mellitus: Problem details: Will continue sliding scale insulin, will check fasting lipid profile as well Current visit: Yes Status: Acute (3) Acute renal failure: Problem details: Continue IV hydration, will follow labs closely Current visit: Yes Status: Acute (4) Chronic back pain: Problem details: continue usual oxycodone for pain Current visit: Yes Status: Acute (5) Chronic narcotic dependence: Problem details: as above Current visit: Yes Status: Acute (6) Cellulitis: Problem details: Very severe Diabetic skin and soft tissue infection. Awaiting MRI to evaluate osteomyelitis. Will ask Podiatry to evaluate, suspect he may need debridement or amputation of the great toe. Current visit: Yes Status: Acute Plan: Assessment/Plan Narrative: DVT prophylaxis Full code
[2018-03-15] MEDS: CEFTRIAXONE 2 GM/50 ML FROZ.PIGGY IV (12:10)
[2018-03-15] MEDS: ENOXAPARIN 40 MG/0.4 ML SYRINGE SUBCUT (12:14)
[2018-03-15] MEDS: DOCUSATE 100 MG CAPSULE PO ×2 (12:15→20:51)
--- NOTE | 2018-03-15 13:51 | PC.NURSE ---
Patient resting in bed most of morning and is A/O, moved to chair for breakfast tolerated well. Left foot elevated in chair and on pillow, small amounts of drainage noted throughout the shift from left foot. Patient makes no complaints of left foot/leg pain during shift, only of chronic back pain. Patients blood sugars have been elevated this morning at 193 and then 236 around 12:00. Insulin given per MD order sliding scale. Patient scheduled to go to MRI later this afternoon. Has been made NPO for remainder of the day.
[2018-03-15 14:26] LABS: Add Manual Diff / Slide Review NO; Basophils Percent Auto 0.9 % (0-2); Eosinophils Percent Auto 2.3 % (2-4); Hematocrit 36.4 % (41-53); Lymphocytes Percent Auto 18.2 % (25-40); Mean Corpuscular Hemoglobin 29.6 PG (26-34); Mean Corpuscular Volume 89.5 fL (80-100); Monocytes Percent Auto 11.4 % (3-14); Neutrophils Absolute Auto 6500 /uL (3000-5900); Neutrophils Percent Auto 67.2 % (50-75); Platelet Count 375 X10^3/uL (150-400); Red Blood Cell Count 4.06 X10^6/uL (4.5-5.9); Red Cell Distribution Width 13.9 % (11.6-14.8); White Blood Cell Count 9.7 X10^3/uL (4.5-11.0)
[2018-03-15 14:34] LABS: INR 1.3 (0.9-1.3); Prothrombin Time 13.7 SECONDS (10.1-12.7)
[2018-03-15 14:40] LABS: BUN Creatinine Ratio 18.7 (6-22); Blood Urea Nitrogen 28 mg/dL (9-20); Calcium 9.1 mg/dL (8.4-10.2); Carbon Dioxide 22 mmol/L (22-32); Chloride 105 mmol/L (98-107); Cholesterol 165 mg/dL (140-199); Estimated Glomerular Filt Rate 46.1 mL/min (>60); Glucose 196 mg/dL (80-110); HDL Cholesterol 27 mg/dL (40-60); HEMOLYSIS < 15 (0-50); LDL Cholesterol Calculated 101 mg/dL (<100); Potassium 4.7 mmol/L (3.4-5.1); Sodium 140 mmol/L (137-145); Triglycerides 185 mg/dL (35-150)
--- NOTE | 2018-03-15 15:37 | PM.CN ---
History of Present Illness Date Patient Seen: 03/15/18 Time Patient Seen: 15:37 Chief complaint: LEFT FOOT ULCER Reason for consult: Erythema swelling and blistering of the great toe left Requesting provider: Sujatha Obrien Narrative: The patient is a 72-year-old male newly diagnosed diabetic with left great toe swelling erythema and blistering. The patient endorses a history of approximately 4 days of increasing redness and swelling of his great toe. He was seen at the [facility] in [facility] for cellulitis. Was given oral antibiotics and offered admission. The patient declined admission to percent closer to home. Last night the patient presented to [facility] Emergency Room after he noted worsening of his left toe cellulitis with dorsal blistering and purple coloration. The patient does have a diagnosis of neuropathy and a history of back problems. He denies any fevers nausea or vomiting or chills. He denies knowing and diabetes before this past weekend. He was admitted through the emergency room and placed on IV antibiotics. Orthopedic Foot and Ankle surgery was consulted by the admitting hospitalist team today. Patient has been on IV antibiotics. He is also found to have acute renal failure with a creatinine of 1.8. CRP is 35 E SR 79 white count is 11.5. The patient denies pain due to his neuropathy endorses being able to move the toe up and down. Does endorse a history of neuropathy and numbness and tingling. He denies any known injury. [facility] Medical History Diabetes (Acute) HTN (hypertension) (Chronic) Neuropathy (Chronic) Spinal stenosis (Chronic) Surgical History History of tonsillectomy (Resolved) Family History Father Alcoholism /alcohol abuse Social History household members: friend(s) Smoking Status: Never smoker alcohol intake: never Meds Home Medications Medication Instructions Recorded Confirmed Type cephalexin 500 mg PO QID 03/14/18 03/14/18 History doxycycline monohydrate 100 mg PO BID 03/14/18 03/14/18 History metformin 500 mg PO BID 03/14/18 03/14/18 History oxycodone 10 mg PO QID PRN 03/14/18 03/14/18 History Allergies Allergy/AdvReac Type Severity Reaction Status Date / Time dexamethasone Allergy Verified 03/14/18 18:31 quinine Allergy Verified 03/14/18 18:31 Sulfa (Sulfonamide Allergy Verified 03/14/18 18:31 Antibiotics) Review of Systems Review of Systems Endorses a history of neuropathy. Denies fevers chills nausea vomiting. Endorses a history of low back pain. States his low back is bothering him more than anything else right now. All systems reviewed & are unremarkable except as noted in HPI and below Exam Vital Signs (past 8 hours): - 03/15/18 07:55 03/15/18 11:30 Temperature 98.6 F 98.3 F Pulse Rate 82 85 Respiratory Rate 16 16 Blood Pressure 130/75 141/80 H Pulse Oximetry 97 98 Oxygen Delivery Method Room Air Oxygen Flow Rate 0 Narrative Exam Narrative: Patient is alert and oriented male in no acute distress he is sitting in the bedside chair. Breathing is unlabored on room air. Normocephalic atraumatic Lungs clear to auscultation. Cardiovascular exam regular rate and rhythm no murmurs. Abdominal exam soft nontender Extremity exam: Left lower extremity: Moderate erythema over the dorsum of the foot residential up the karimi within demarcation lines. Calf is soft and nontender. Dorsum of the great toe shows significant swelling purplish color no open wounds. Small dried drainage. Patient actively flexes and extends the great toe. Stocking-glove neuropathy. Palpable dorsalis pulse 2+. Swelling and blistering extends to MTP joint, plantar skin is supple. Small amount of hemorrhagic blistering the dorsum of the 2nd MTPJ. Objective Labs Result Diagrams: 03/15/18 14:10 03/15/18 14:10 Labs: Laboratory Results - last 24 hr 03/14/18 03/14/18 03/14/18 20:18 20:18 20:18 WBC 11.5 H RBC 4.02 L Hgb 11.8 L Hct 35.7 L MCV 88.9 MCH 29.3 MCHC 33.0 RDW 13.7 Plt Count 330 Neut % (Auto) 79.0 H Lymph % (Auto) 9.4 L [place] % (Auto) 10.4 Eos % (Auto) 0.6 L Baso % (Auto) 0.6 Neut # (Auto) 9100 H ESR PT 13.6 H INR 1.3 APTT 29 Sodium Potassium Chloride Carbon Dioxide BUN Creatinine Estimated GFR BUN/Creatinine Ratio Glucose Lactate 1.8 Calcium Total Bilirubin AST ALT Alkaline Phosphatase C-Reactive Protein Total Protein Albumin Globulin Albumin/Globulin Ratio Triglycerides Cholesterol LDL Cholesterol, Calc HDL Cholesterol Urine RBC Urine WBC Ur Squamous Epith Cells Urine Bacteria Ur Culture Indicated? Micro UA Comment 03/14/18 03/14/18 03/14/18 20:18 20:18 20:18 WBC RBC Hgb Hct MCV MCH MCHC RDW Plt Count Neut % (Auto) Lymph % (Auto) [place] % (Auto) Eos % (Auto) Baso % (Auto) Neut # (Auto) ESR 79 H PT INR APTT Sodium Potassium Chloride Carbon Dioxide BUN Creatinine Estimated GFR BUN/Creatinine Ratio Glucose Lactate Calcium Total Bilirubin AST ALT Alkaline Phosphatase C-Reactive Protein 35.4 H Total Protein Albumin Globulin Albumin/Globulin Ratio Triglycerides Cholesterol LDL Cholesterol, Calc HDL Cholesterol Urine RBC 0-1/hpf Urine WBC 0-1/hpf Ur Squamous Epith Cells 0-1 /hpf Urine Bacteria None seen Ur Culture Indicated? Cult not indicated Micro UA Comment Not Reportable 03/14/18 03/15/18 03/15/18 20:18 14:10 14:10 WBC 9.7 RBC 4.06 L Hgb 12.0 L Hct 36.4 L MCV 89.5 MCH 29.6 MCHC 33.0 RDW 13.9 Plt Count 375 Neut % (Auto) 67.2 Lymph % (Auto) 18.2 L [place] % (Auto) 11.4 Eos % (Auto) 2.3 Baso % (Auto) 0.9 Neut # (Auto) 6500 H ESR PT 13.7 H INR 1.3 APTT Sodium 139 Potassium 5.1 Chloride 99 Carbon Dioxide 24 BUN 40 H Creatinine 1.80 H Estimated GFR 37.4 L BUN/Creatinine Ratio 22.2 H Glucose 209 H Lactate Calcium 9.0 Total Bilirubin 0.5 AST 27 ALT 26 Alkaline Phosphatase 107 C-Reactive Protein Total Protein 6.6 Albumin 3.7 Globulin 2.9 Albumin/Globulin Ratio 1.3 Triglycerides Cholesterol LDL Cholesterol, Calc HDL Cholesterol Urine RBC Urine WBC Ur Squamous Epith Cells Urine Bacteria Ur Culture Indicated? Micro UA Comment 11/13/18 14:10 WBC RBC Hgb Hct MCV MCH MCHC RDW Plt Count Neut % (Auto) Lymph % (Auto) [place] % (Auto) Eos % (Auto) Baso % (Auto) Neut # (Auto) ESR PT INR APTT Sodium 140 Potassium 4.7 Chloride 105 Carbon Dioxide 22 BUN 28 H Creatinine 1.50 H Estimated GFR 46.1 L BUN/Creatinine Ratio 18.7 Glucose 196 H Lactate Calcium 9.1 Total Bilirubin AST ALT Alkaline Phosphatase C-Reactive Protein Total Protein Albumin Globulin Albumin/Globulin Ratio Triglycerides 185 H Cholesterol 165 LDL Cholesterol, Calc 101 H HDL Cholesterol 27 L Urine RBC Urine WBC Ur Squamous Epith Cells Urine Bacteria Ur Culture Indicated? Micro UA Comment Assessment & Plan Plan: Assessment/Plan Narrative: Patient is a 72-year-old male with acute left foot diabetic a cellulitis and dorsal abscess and possible osteomyelitis. The patient has a significant cellulitis with blistering and suspicious for abscess. This is not extended past his MTPJ at this point, and the patient demonstrates stable vital signs. Discussed the nature of the infection with the patient. I discussed this is a series infection patient with uncontrolled diabetes and that these can spread rapidly and require amputations of the toe foot and even leg. At this point the patient does appear to have a viable plantar surface of his great toe but the dorsum is hemorrhagic and I am concerned for skin coverage in this area. The patient is very concerned about losing his toe would like salvage if at all possible. He does have good pulses and would likely have a sufficient vascular flow to heal a distal wound however again skin coverage may be an issue for him. MRI is pending to help characterize the extent of the involvement. I discussed with the patient like to take him to the OR tonight after the MRI scans for a irrigation debridement. If the involvement appears limited to the dorsal soft tissues we would stop at this packed the wound and proceeded with wound care. We did discuss the patient may need additional washouts in the future and potential amputations if this does not heal. We discussed if the involvement is greater than the dorsal soft tissues a partial foot amputation may be necessary. The patient understands and agrees with the plan. The risks and benefits of the procedure have been discussed with the patient even opportunity to ask questions. The risks of surgery include but are not limited to infection, need for additional procedures, persistence of pain, damage to nerves and blood vessels, wound healing problems need for amputation, DVT, PE, cardiopulmonary complications and . The patient expressed a thorough understanding of the risks and benefits of surgery and has elected to proceed. Consent was signed today. Time Spent With Patient Time with patient: 25 - 35 minutes
--- NOTE | 2018-03-15 16:25 | PC.NURSE ---
Amy shift note: Patient was taken to MRI approximately at 1520. MRI staff notified this RN that patient was taken from MRI by Artur Castillo RN to Pre OP. Attempted to call family for update regarding plan of care. Under contacts listed, contacted Selma Gomez, unable to connect. Number is disconnected or no longer in service. Awaiting for post op for report.
[2018-03-15] MEDS: LACTATED RINGERS 1,000 ML 42 ML IV (16:40)
[2018-03-15] MEDS: FAMOTIDINE 20 MG/50 ML PIGGYBACK 200 MG IV (16:49)
[2018-03-15] MEDS: INSULIN ASPART 100 UNIT/ML 10ML VIAL SUBCUT (16:49)
[2018-03-15] MEDS: METOCLOPRAMIDE 10 MG/2 ML INJ IV (16:49)
--- NOTE | 2018-03-15 16:55 | PM.PREOP ---
Pre-operative Note Interval Note Pre-op Check: Yes History & Physical exam performed today by Physician Changes: No H&P completed within 30 days and has changed as indicated here:: H&P performed today by this physician see consult note
--- NOTE | 2018-03-15 16:55 | PM.OP.1 ---
Operative Date/Time/Diagnoses Date of procedure: 03/15/18 Time of procedure: 17:20 Pre-op diagnosis: 1. Diabetic foot ulcer, left E11.621 2. Diabetes type 2 E11.9 3. Cellulitis L03.90 Post-op diagnosis: same Procedure & Clinicians Procedure: 1. Irrigation debridement subcutaneous tissue muscle and fascia left foot CPT code 90937 Same procedure as scheduled: Yes Indications: The patient is a 72-year-old male with acute cellulitis and abscess, diabetic left foot infection. Patient has a rapidly progressing left diabetic foot infection with evidence of abscess on MRI. Patient has been indicated for operative irrigation debridement abscess drainage and biopsy. The risks benefits and alternatives to procedure were explained the patient in detail. He understands that additional procedures may be necessary to eradicate the infection and there is a potential for need for amputation, wound care and/or additional procedures. Patient also understands that he may require intravenous antibiotics for prolonged period. Informed consent was signed on the floor. Surgeon: Anitha Spencer Click Yes if Unassisted: Yes Anesthesia Type: General Operative Notes Findings: Extensive dorsal cellulitis and abscess over the great toe extending into the 1st webspace Closure Type: non-primary Specimen(s): other (Tissue sent for culture, microbiology and pathology) Implants & Drains: Packing left foot Estimated Blood Loss (mL): 20 Blood products transfused: none Procedure in detail: Patient was seen in the preoperative area. Site of surgery had been marked on the floor. Questions were answered. He was then brought to the operating room by the operative team. Patient was positioned supine on the operative table and general anesthesia was administered. Patient was positioned in the supine position. A well-padded thigh tourniquet was placed. Left lower extremity was prepped in the standard sterile fashion. Patient was on scheduled antibiotics. Formal time-out procedure was performed confirming the patient's site side of surgery presence of informed consent. Again the patient was on scheduled antibiotics on the floor. The patient's left lower extremity was then elevated for gravity exsanguination and the tourniquet was raised to 250 mm of mercury on the thigh. The tourniquet was elevated for 24 min Attention was turned to the dorsum of the patient's left foot. Dorsal blistered tissue was incised longitudinally. And extended proximally to the 1st and 2nd web space. There is copious thick purulence upon incision. This was most probably again and deep in the 1st webspace between the 1st and 2nd toes. There was some tracking dorsally along the web space as well. Abscess fluid and tissue was sent for culture and path. Devitalized tissue was debrided in including devitalized epidermal lysis that was extensive over the dorsum of the 1st digit and in the 1st web space on the lateral aspect of the 1st digit. The 1st and 2nd MTP joints did not appear grossly involved. There irrigation was performed with cysto tubing and 6 L of saline. Tourniquet was released and hemostasis achieved. The abscess cavity was then packed open with saline soaked gauze and dry gauze and Kerlix and Vish wrap were then placed. The patient was awoken from anesthesia and taken to the postoperative unit in good condition. There no immediate complications from this procedure. All counts were correct. Complications: none Condition: stable Disposition: Acute Care Plan for aftercare: The patient will be heel weight-bearing on the left lower extremity. He will continue on scheduled antibiotics. These may be tailored secondary to cultures. Anticipate requirement for IV antibiotics at discharge likely 4-6 weeks. We will have wound check in 48 hrs. May require return to OR, versus outpatient wound care.
[2018-03-15 16:58] LABS: Hemoglobin A1C% w Est Avg Glu 10.3 % (4.0-6.0)
--- NOTE | 2018-03-15 17:05 | P.OP_ITS ---
Operative Date/Time/Diagnoses Date of procedure: 03/15/18 Time of procedure: 17:20 Pre-op diagnosis: 1. Diabetic foot ulcer, left E11.621 2. Diabetes type 2 E11.9 3. Cellulitis L03.90 Post-op diagnosis: same Procedure & Clinicians Procedure: 1. Irrigation debridement subcutaneous tissue muscle and fascia left foot CPT code 85695 Same procedure as scheduled: Yes Indications: The patient is a 72-year-old male with acute cellulitis and abscess , diabetic left foot infection. Patient has a rapidly progressing left diabetic foot infection with evidence of abscess on MRI. Patient has been indicated for operative irrigation debridement abscess drainage and biopsy. The risks benefits and alternatives to procedure were explained the patient in detail. He understands that additional procedures may be necessary to eradicate the infection and there is a potential for need for amputation, wound care and/ or additional procedures. Patient also understands that he may require intravenous antibiotics for prolonged period. Informed consent was signed on the floor. Surgeon: Anitha Spencer Click Yes if Unassisted: Yes Anesthesia Type: General Operative Notes Findings: Extensive dorsal cellulitis and abscess over the great toe extending into the 1st webspace Closure Type: non-primary Specimen(s): other (Tissue sent for culture, microbiology and pathology) Implants & Drains: Packing left foot Estimated Blood Loss (mL): 20 Blood products transfused: none Procedure in detail: Patient was seen in the preoperative area. Site of surgery had been marked on the floor. Questions were answered. He was then brought to the operating room by the operative team. Patient was positioned supine on the operative table and general anesthesia was administered. Patient was positioned in the supine position. A well-padded thigh tourniquet was placed. Left lower extremity was prepped in the standard sterile fashion. Patient was on scheduled antibiotics. Formal time-out procedure was performed confirming the patient's site side of surgery presence of informed consent. Again the patient was on scheduled antibiotics on the floor. The patient's left lower extremity was then elevated for gravity exsanguination and the tourniquet was raised to 250 mm of mercury on the thigh. The tourniquet was elevated for 24 min Attention was turned to the dorsum of the patient's left foot. Dorsal blistered tissue was incised longitudinally. And extended proximally to the 1st and 2nd web space. There is copious thick purulence upon incision. This was most probably again and deep in the 1st webspace between the 1st and 2nd toes. There was some tracking dorsally along the web space as well. Abscess fluid and tissue was sent for culture and path. Devitalized tissue was debrided in including devitalized epidermal lysis that was extensive over the dorsum of the 1st digit and in the 1st web space on the lateral aspect of the 1st digit. The 1st and 2nd MTP joints did not appear grossly involved. There irrigation was performed with cysto tubing and 6 L of saline. Tourniquet was released and hemostasis achieved. The abscess cavity was then packed open with saline soaked gauze and dry gauze and Kerlix and Vish wrap were then placed. The patient was awoken from anesthesia and taken to the postoperative unit in good condition. There no immediate complications from this procedure. All counts were correct. Complications: none Condition: stable Disposition: Acute Care Plan for aftercare: The patient will be heel weight-bearing on the left lower extremity. He will continue on scheduled antibiotics. These may be tailored secondary to cultures. Anticipate requirement for IV antibiotics at discharge likely 4-6 weeks. We will have wound check in 48 hrs. May require return to OR , versus outpatient wound care.
--- NOTE | 2018-03-15 17:22 | SUR.OPER ---
Supine on padded OR bed, head on pillow, arms secured on padded arm boards at <90 degrees abduction, legs uncrossed, safety belt at thigh, tape over blanket over lower legs.
--- NOTE | 2018-03-15 19:27 | PC.NURSE ---
Amy shift note: 1839: Patient return to AC , S/P left greater toe I&D and washout. Patient awake, alert, pleasant and cooperative. VSS and afebrile. Left foot dressed with bulky dressing from toes to upper ankle secured with Xeroform. Toes pink, warm, movable, no sensation present. Unable to assess pulse due to dressing. Voided, and using urinal. Tolerating PO intake. IVF infusing. Calls appropriately for staff assistance.
[2018-03-15] MEDS: VANCOMYCIN 1,250 MG in SODIUM CHLORIDE 0.9% 250 ML IV (20:04)
[2018-03-15] MEDS: SENNOSIDES 8.6 MG TABLET 17.2 MG PO (20:51)
--- NOTE | 2018-03-15 22:37 | PC.NURSE ---
Student nurse note 03/15/2018 3278 Patient is resting and has tolerated care well throughout night. Patient expressed concerns regarding the current status of health, mentioning fear over the possibility of losing great toe. Patient expressed a desire to become compliant with new diabetes diagnosis and referred to current infection as a wake up call. Patient denies previous knowledge of diabetes diagnosis. Blood glucose slightly elevated this evening, insulin given per protocol. Patient complained of back pain as well as stiffness in neck, which is baseline for patient and is not new. Patient reported slight improvement after pain medication. Patient still grimaces with movement. Offered to bend knees or elevate legs to decrease pressure, patient refused. Patient also has decrease sensation bilaterally in feet. Patient bed is low and locked, call light within reach.
[2018-03-15] MEDS: ACETAMINOPHEN 325 MG TABLET 650 MG PO (23:43)
[2018-03-16] VITALS (10 sets, daily range): BP systolic 132–159; BP diastolic 76–95; PULSE 20–102; RESP 16–20; TEMP 36.6–37.4; O2SAT 96–99
--- NOTE | 2018-03-16 | DI.US.S_ITS ---
PROCEDURE: US BRIANA LIMITED SINGLE LEVEL INDICATIONS: r/o vascular disease TECHNIQUE: Ankle-brachial indices were obtained bilaterally and recorded. COMPARISONS: FINDINGS: Right ankle brachial index (BRIANA): 1.1 Left ankle brachial index (BRIANA): 0.8 IMPRESSION: 1. Normal right ankle brachial index. 2. Abnormal left ankle brachial index suggesting mild to moderate disease consistent with claudication; duplex exam warranted. Dictated by: Jm Huntley [facility] Interpreted: Sunita Alan MD on 03/16/2018 at 11:27 Approved by: Sunita Alan M.D. on 03/16/2018 at 15:39
--- NOTE | 2018-03-16 | DI.US.S_ITS ---
PROCEDURE: US ARTERIAL DUPLEX LE LT INDICATIONS: r/o vascular disease TECHNIQUE: Color and pulse Doppler interrogation was performed of the left lower extremity arterial system, with image documentation. COMPARISON: None. FINDINGS: Common femoral artery: 113 cm/sec, with biphasic flow. Deep femoral artery: 1.1 cm/sec, with biphasic flow. Proximal superficial femoral artery: 89 cm/sec, with biphasic flow. Mid superficial femoral artery: 110 cm/sec, with biphasic flow. Distal superficial femoral artery: 106 cm/sec, with biphasic flow. Popliteal artery: 112 cm/sec, with biphasic flow. Posterior tibial artery: 90 cm/sec, with monophasic flow. Anterior tibial artery/dorsalis pedis: 82 cm/sec, with biphasic flow. Mills-scale imaging description: There is diffuse scattered plaque IMPRESSION: Diffuse scattered plaque. No evidence of focal stenosis. Dictated by: Carmelo Em M.D. on 03/16/2018 at 10:14 Approved by: Carmelo Em M.D. on 03/16/2018 at 10:17
[2018-03-16] MEDS: OXYCODONE IR 10 MG TABLET PO ×4 (02:15→18:07)
[2018-03-16] MEDS: SODIUM CHLORIDE 0.9% 1,000 ML 125 ML IV ×3 (02:17→20:38)
[2018-03-16] MEDS: ACETAMINOPHEN 325 MG TABLET 650 MG PO (05:43)
[2018-03-16 05:53] LABS: Add Manual Diff / Slide Review NO; Eosinophils Percent Auto 3.1 % (2-4); Hematocrit 33.4 % (41-53); Hemoglobin 11.2 g/dL (13.5-17.5); Lymphocytes Percent Auto 20.8 % (25-40); Mean Corpuscular HGB Conc 33.5 % (30-36); Mean Corpuscular Hemoglobin 29.5 PG (26-34); Mean Corpuscular Volume 88.2 fL (80-100); Monocytes Percent Auto 13.6 % (3-14); Neutrophils Absolute Auto 5600 /uL (3000-5900); Neutrophils Percent Auto 61.5 % (50-75); Platelet Count 338 X10^3/uL (150-400); Red Blood Cell Count 3.79 X10^6/uL (4.5-5.9); Red Cell Distribution Width 13.6 % (11.6-14.8); White Blood Cell Count 9.1 X10^3/uL (4.5-11.0)
[2018-03-16 05:55] LABS: BUN Creatinine Ratio 17.3 (6-22); Blood Urea Nitrogen 26 mg/dL (9-20); Calcium 8.6 mg/dL (8.4-10.2); Carbon Dioxide 20 mmol/L (22-32); Chloride 107 mmol/L (98-107); Estimated Glomerular Filt Rate 46.1 mL/min (>60); Glucose 164 mg/dL (80-110); HEMOLYSIS < 15 (0-50); Potassium 4.4 mmol/L (3.4-5.1); Sodium 139 mmol/L (137-145)
[2018-03-16] MEDS: DOCUSATE 100 MG CAPSULE PO ×2 (08:55→20:37)
[2018-03-16] MEDS: ENOXAPARIN 40 MG/0.4 ML SYRINGE SUBCUT (08:55)
[2018-03-16] MEDS: INSULIN ASPART 100 UNIT/ML INSULN PEN SUBCUT ×4 (08:56→20:39)
[2018-03-16] MEDS: CEFTRIAXONE 2 GM/50 ML FROZ.PIGGY IV (10:56)
--- NOTE | 2018-03-16 10:58 | CM.DPC ---
DCP Cont: Met with patient in room. Discussed discharge planning, should patient need several weeks of antibiotics. Discussed detention, and and patient stated he does not want to go to rehab. Patient has stated that he wishes to go home. Asked patient if he had help at home, and he stated that his ex- is readily available. Did also discuss outpatient IV antibotics, for patient may have to go to infusion clinic for this. He is hopeful that he will go home on oral antibiotics. P: DCP to continue to follow closely. Will continue to discuss case with hospitalist during rounds to determine appropriate plan for patient. Mouna Rodarte RN/Associate Professor Of Forestry
--- NOTE | 2018-03-16 12:28 | P.PN_ITS ---
Subjective Date Patient Seen: 03/16/18 Time Patient Seen: 12:21 Interval history: Patient is postop day 1. Status post I and D of subcutaneous tissue muscle and fascia of left foot by Dr. Spencer. States that he is not having very much pain in the foot but some back pain. Does have history of back pain. History of diabetes mellitus and diabetic neuropathy. Would like to go home as soon as possible. Cultures grew out Staph aureus and waiting for susceptibilities. Exam Vital Signs (past 8 hours): - 03/16/18 04:29 03/16/18 08:00 03/16/18 09:02 Temperature 99.2 F 98.6 F Pulse Rate 88 20 L Respiratory Rate 18 20 Blood Pressure 133/79 137/76 Pulse Oximetry 96 97 96 Oxygen Delivery Method Room Air Oxygen Flow Rate 0 Narrative Exam Narrative: Patient in bed. Patient alert orient x3. Left foot dressing clean dry and intact. Able to wiggle toes. Sensation in toes but a little bit of numbness. Some swelling in the mid tibia. Objective Labs Result Diagrams: 03/16/18 05:25 03/16/18 05:25 Labs: Laboratory Results - last 24 hr 03/15/18 03/15/18 03/15/18 14:10 14:10 14:10 WBC 9.7 RBC 4.06 L Hgb 12.0 L Hct 36.4 L MCV 89.5 MCH 29.6 MCHC 33.0 RDW 13.9 Plt Count 375 Neut % (Auto) 67.2 Lymph % (Auto) 18.2 L [place] % (Auto) 11.4 Eos % (Auto) 2.3 Baso % (Auto) 0.9 Neut # (Auto) 6500 H PT 13.7 H INR 1.3 Sodium 140 Potassium 4.7 Chloride 105 Carbon Dioxide 22 BUN 28 H Creatinine 1.50 H Estimated GFR 46.1 L BUN/Creatinine Ratio 18.7 Glucose 196 H Hemoglobin A1c Calcium 9.1 Triglycerides 185 H Cholesterol 165 LDL Cholesterol, Calc 101 H HDL Cholesterol 27 L 03/15/18 03/16/18 03/16/18 14:10 05:25 05:25 WBC 9.1 RBC 3.79 L Hgb 11.2 L Hct 33.4 L MCV 88.2 MCH 29.5 MCHC 33.5 RDW 13.6 Plt Count 338 Neut % (Auto) 61.5 Lymph % (Auto) 20.8 L [place] % (Auto) 13.6 Eos % (Auto) 3.1 Baso % (Auto) 1.0 Neut # (Auto) 5600 PT INR Sodium 139 Potassium 4.4 Chloride 107 Carbon Dioxide 20 L BUN 26 H Creatinine 1.50 H Estimated GFR 46.1 L BUN/Creatinine Ratio 17.3 Glucose 164 H Hemoglobin A1c 10.3 H Calcium 8.6 Triglycerides Cholesterol LDL Cholesterol, Calc HDL Cholesterol Assessment & Plan Post-op Postoperative Procedures Operation Date: 03/15/18 14:45 Actual Procedures Side Surgeon p I&D foot Left Anitha Spencer MD Postop day 1. Heel weight-bearing on the left lower extremity. He will continue on scheduled antibiotics. Anticipate requirement for IV antibiotics at discharge likely 4-6 weeks. Wound check tomorrow. Anticipate discharge in a couple of days. Sensitivities pending for Staph aureus. Continue insulin for diabetes. Continue IV vancomycin. Medical issues being followed by the hospitalist.
--- NOTE | 2018-03-16 15:34 | P.PN_ITS ---
Subjective Date Patient Seen: 03/16/18 Interval history: Events reviewed, Patient send and examined. Appreciate Dr. Spencer's consult The patient is recovering well. He is adamant that he does not want 4-6 weeks of IV antibiotics. Cultures are growing Staph Aureus so far. Sensitivities are pending. Will plan to have PICC line placed for home antibiotics. No pain. No diarrhea Exam Vital Signs (past 8 hours): - 03/16/18 08:00 03/16/18 09:02 03/16/18 12:28 Temperature 98.6 F 98.6 F Pulse Rate 20 L 95 H Respiratory Rate 20 18 Blood Pressure 137/76 132/86 Pulse Oximetry 97 96 98 Oxygen Delivery Method Room Air Oxygen Flow Rate 0 Narrative Exam Narrative: Pleasant gentleman in no acute distress Lungs: clear to ausculatation CV:RRR nl Sl S2 Abd: soft/ non tender/ nondistended Ext: no edema Left foot with dressing in place Objective Labs Result Diagrams: 03/16/18 05:25 03/16/18 05:25 Labs: Laboratory Results - last 24 hr 03/15/18 03/16/18 03/16/18 14:10 05:25 05:25 WBC 9.1 RBC 3.79 L Hgb 11.2 L Hct 33.4 L MCV 88.2 MCH 29.5 MCHC 33.5 RDW 13.6 Plt Count 338 Neut % (Auto) 61.5 Lymph % (Auto) 20.8 L [place] % (Auto) 13.6 Eos % (Auto) 3.1 Baso % (Auto) 1.0 Neut # (Auto) 5600 Sodium 139 Potassium 4.4 Chloride 107 Carbon Dioxide 20 L BUN 26 H Creatinine 1.50 H Estimated GFR 46.1 L BUN/Creatinine Ratio 17.3 Glucose 164 H Hemoglobin A1c 10.3 H Calcium 8.6 Assessment & Plan (1) Cellulitis: Problem details: Staph Aureus growing. Will continue Vanco and await final sensitivities to adjust antibiotics Current visit: Yes Status: Acute (2) Chronic narcotic dependence: Problem details: as above Current visit: Yes Status: Acute (3) Chronic back pain: Problem details: continue usual oxycodone for pain Current visit: Yes Status: Acute (4) Acute renal failure: Problem details: Continue IV hydration, will follow labs closely Will continue to monitor closely Current visit: Yes Status: Acute (5) Diabetes mellitus: Problem details: Will continue sliding scale insulin, will check fasting lipid profile as well Current visit: Yes Status: Acute (6) Osteomyelitis: Problem details: Will place PICC line, he will need 4-6 weeks of IV antibiotics Qualifiers: Laterality: left Osteomyelitis location: foot Osteomyelitis type: other acute Qualified Code(s): M86.172 - Other acute osteomyelitis, left ankle and foot Current visit: Yes Status: Acute (7) Diabetic foot ulcer: Problem details: Patient was started on Vancomycin, will Add Ceftriaxone as I suspect polymicrobial infection Current visit: Yes Status: Acute
[2018-03-16] MEDS: HYDROMORPHONE 1 MG INJ IV ×2 (15:48→23:42)
--- NOTE | 2018-03-16 16:51 | PC.NURSE ---
Addendum entered by Mandi Alejandro R.N. 03/16/18 19:50: Dr. Spencer at bedside performing dressing change. Original Note: Addendum entered by Mandi Alejandro R.N. 03/16/18 19:29: Patients POA is concern regarding [facility] disposition. JON Hahn expressed concern regarding his home environment and compliance to with IV antibiotic therapy, diabetic management, and wound care. Spoke with patient and he is open to nursing home facility option. Original Note: Addendum entered by Mandi Alejandro R.N. 03/16/18 19:15: Dr. Obrien notified regarding patient erythema and tenderness to left elbow and dorsal to left front of hand. Original Note: Amy shift note: Patient awake and alert, c/o left elbow pain 10/10, described as an ache. Reports having pain on his left elbow in the past due to osteoarthritis. Limited ROM due to pain, mild swelling noted to left inner hand. Able to move fingers, 2+ radial pulse, warm, cap refill < 3 secs. Medicated with Dilaudid IV for breakthrough pain with adequate pain relief. PICC placement at bedside.
--- NOTE | 2018-03-16 16:57 | DI.RAD.S_ITS ---
PROCEDURE: XR CHEST FOR PICC 1V INDICATIONS: PICC placement confirmation COMPARISON: None. FINDINGS: PICC was placed by the intravenous therapy team from the right side. Fluoroscopic spot film demonstrates tip of PICC overlying the inferior aspect of the superior vena cava. IMPRESSION: Tip of PICC lies overlying the inferior aspect of the superior vena cava. Dictated by: Mat Tucker M.D. on 03/16/2018 at 16:46 Approved by: Mat Tucker M.D. on 03/16/2018 at 16:47
--- NOTE | 2018-03-16 19:56 | P.PN_ITS ---
Subjective Date Patient Seen: 03/16/18 Time Patient Seen: 19:54 Interval history: Patient is a 72-year-old male with a left foot diabetic ulcer. He is postop day 1 status post irrigation debridement the left foot an abscess drainage. The patient is doing well reports pain is controlled. He has been on IV antibiotics. Cultures are growing Staph aureus sensitivities are pending Exam Vital Signs (past 8 hours): - 03/16/18 12:28 03/16/18 15:40 Temperature 98.6 F 98.3 F Pulse Rate 95 H 102 H Respiratory Rate 18 20 Blood Pressure 132/86 159/85 H Pulse Oximetry 98 99 Oxygen Delivery Method Room Air Oxygen Flow Rate 0 Narrative Exam Narrative: Vital signs are stable . Patient is in no acute distress lying in bed. Respiratory nonlabored on room air Musculoskeletal: Left lower extremity is examined dressings taken down tonight. The dorsal incision over the great toe and into the 1st web space is evaluated. The packing is removed. No further purulence or drainage is noted. There has been significant epidermolysis along the wound edges and this was previously covered with Xeroform gauze is removed and inspected. No obvious additional full-thickness skin necrosis. Capillary refill is brisk. Dorsalis pedis pulse palpable. Calf is soft. Cellulitis well within demarcation line. Swelling has significantly improved. There is no fluctuance palpated. Incision is repacked with new sterile gauze in a wet-to-dry fashion with saline and new Xeroform gauze was placed around the wound margins. Dry gauze was placed over this followed by an ABD pad and Kerlix and Vish wrap. Objective Labs Result Diagrams: 03/16/18 05:25 03/16/18 05:25 Labs: Laboratory Results - last 24 hr 03/16/18 03/16/18 05:25 05:25 WBC 9.1 RBC 3.79 L Hgb 11.2 L Hct 33.4 L MCV 88.2 MCH 29.5 MCHC 33.5 RDW 13.6 Plt Count 338 Neut % (Auto) 61.5 Lymph % (Auto) 20.8 L [place] % (Auto) 13.6 Eos % (Auto) 3.1 Baso % (Auto) 1.0 Neut # (Auto) 5600 Sodium 139 Potassium 4.4 Chloride 107 Carbon Dioxide 20 L BUN 26 H Creatinine 1.50 H Estimated GFR 46.1 L BUN/Creatinine Ratio 17.3 Glucose 164 H Calcium 8.6 Assessment & Plan Post-op Postoperative Procedures Operation Date: 03/15/18 14:45 Actual Procedures Side Surgeon p I&D foot Left Anitha Spencer MD Postoperative day: 1 Postoperative status: doing well Postoperative status narrative: Patient is doing well postoperatively. He continues on IV antibiotics. His diabetes is being managed by his admitting hospitalist team Postoperative plan: routine post-op care Postoperative plan narrative: Patient is postop day status 1 left diabetic foot ulcer debridement. Based on the appearance of his wound I do not believe he needs any further operative treatment at this time. Will continue wound care and wet to dry dressings 3 times a week. Recommend wound care consult. Once wound care plan and IV antibiotic administration is established patient may be discharged. Recommend wound care with wet-to-dry dressings 3 times a week versus negative pressure wound therapy changes 2 to 3 times a week with the wound care clinic. I will put in a consultation for the wound care clinic to hopefully see him during his hospitalization otherwise this clinic should be contacted prior to discharging the patient to make sure he is accepted and established there. Once this occurs I would have him follow up in my clinic approximately 2 weeks postoperatively to evaluate his wound at that point or sooner if there are any additional problems. Time Spent With Patient less than 15 minutes Quality VTE Deep Vein Thrombosis/Pulmonary Embolism Present on Admission: No
[2018-03-16] MEDS: VANCOMYCIN 1,250 MG in SODIUM CHLORIDE 0.9% 250 ML IV (20:21)
[2018-03-16] MEDS: SENNOSIDES 8.6 MG TABLET 17.2 MG PO (20:38)
--- NOTE | 2018-03-16 22:22 | PC.NURSE ---
Student nurse note 03/16/2018 Patient has been alert and oriented most of shift. He stated an increased level of pain in the right elbow that radiated to the right shoulder. Swelling of the elbow, thumb, and index fingers in compared to the left were also noted. Right elbow and fingers are sensitive to touch and patient is guarding right elbow intensely. Around 1530 patient began exhibiting signs of confusion after receiving a dose of Dilaudid IV push by primary nurse Shira, which resolved within the hour. Pain was not alleviated with ice, elevation, nor medication. Patient seems compliant with care, just restless and agitated from the right elbow pain that continues to radiate up the right shoulder. Patient refused dinner and takes only small sips of water. Patient also received a consult from Dr. Spencer this evening and she placed a new dressing on right foot. As of 2200, patient seems to be resting comfortably, but did complain of feeling hot. Vital signs taken; temp 99.3; HR 102; BP 154/90. Patient's bed is low and locked, call light within reach.
[2018-03-17] VITALS (12 sets, daily range): BP systolic 139–179; BP diastolic 71–97; PULSE 76–89; RESP 16–18; TEMP 36.7–37.6; O2SAT 96–98
--- NOTE | 2018-03-17 00:23 | PC.NURSE ---
Addendum entered by Mandi Alejandro R.N. 03/17/18 00:56: Administered Indocin PO, patient continue awake, alert and oriented. No confusion noted. Resting in bed. Call light within reach . Original Note: Noc shift note: Patient c/o pain to left elbow 02/09, states he has same type of pain when he has a gout flare up. Elbow joint with swelling, redness and tender to touch. Also noted to left front side of hand. Dr. Ferrell made aware regarding signs and symptoms, new order obtained to initiate his gout home regimen Indocin 75 mg PO BID. Updated patient regarding new order.
[2018-03-17] MEDS: INDOMETHACIN 25 MG CAPSULE 75 MG PO ×2 (00:49→08:22)
[2018-03-17] MEDS: OXYCODONE IR 10 MG TABLET PO ×4 (05:39→18:31)
[2018-03-17] MEDS: SODIUM CHLORIDE 0.9% 1,000 ML 125 ML IV (05:42)
[2018-03-17 06:13] LABS: BUN Creatinine Ratio 17.7 (6-22); Blood Urea Nitrogen 23 mg/dL (9-20); Calcium 8.9 mg/dL (8.4-10.2); Carbon Dioxide 19 mmol/L (22-32); Chloride 105 mmol/L (98-107); Estimated Glomerular Filt Rate 54.4 mL/min (>60); Glucose 274 mg/dL (80-110); HEMOLYSIS 25 (0-50); Potassium 4.4 mmol/L (3.4-5.1); Sodium 139 mmol/L (137-145)
[2018-03-17] MEDS: INSULIN ASPART 100 UNIT/ML INSULN PEN SUBCUT ×4 (08:21→20:27)
[2018-03-17] MEDS: ENOXAPARIN 40 MG/0.4 ML SYRINGE SUBCUT (08:21)
[2018-03-17] MEDS: DOCUSATE 100 MG CAPSULE PO (08:23)
--- NOTE | 2018-03-17 10:48 | PM.PNPO.1 ---
Subjective Date Patient Seen: 03/17/18 Time Patient Seen: 10:48 Interval history: POD #2 status post I&D of subacutaneous tissue of muscle and fascia of left foot with Dr. Spencer. Patient had a dressing change yesterday late afternoon with Dr. Spencer. Patient will have dressing changes 2 to 3 times a week. Exam Vital Signs (past 8 hours): - 03/17/18 05:30 03/17/18 05:36 03/17/18 08:00 Temperature 98.0 F 98.1 F Pulse Rate 89 76 Respiratory Rate 16 16 Blood Pressure 179/97 H 139/78 Pulse Oximetry 96 97 98 03/17/18 08:43 03/17/18 09:08 Temperature Pulse Rate Respiratory Rate Blood Pressure Pulse Oximetry 98 96 Oxygen Delivery Method Room Air Oxygen Flow Rate 0 Narrative Exam Narrative: Patient lying in bed in no acute distress. Patient is asleep. Dressing on left foot is CDI and intact. Objective Labs Result Diagrams: 03/16/18 05:25 03/17/18 05:15 Labs: Laboratory Results - last 24 hr 03/17/18 05:15 Sodium 139 Potassium 4.4 Chloride 105 Carbon Dioxide 19 L BUN 23 H Creatinine 1.30 H Estimated GFR 54.4 L BUN/Creatinine Ratio 17.7 Glucose 274 H D Calcium 8.9 Assessment & Plan Post-op (1) Cellulitis: Problem details: Staph Aureus growing. Will continue Vanco and await final sensitivities to adjust antibiotics Current Visit: Yes Status: Acute (2) Chronic narcotic dependence: Problem details: as above Current Visit: Yes Status: Acute (3) Chronic back pain: Problem details: continue usual oxycodone for pain Current Visit: Yes Status: Acute (4) Acute renal failure: Problem details: Continue IV hydration, will follow labs closely Will continue to monitor closely Current Visit: Yes Status: Acute (5) Diabetes mellitus: Problem details: Will continue sliding scale insulin, will check fasting lipid profile as well Current Visit: Yes Status: Acute (6) Diabetic foot ulcer: Problem details: Patient was started on Vancomycin, will Add Ceftriaxone Current Visit: Yes Status: Acute (7) Osteomyelitis: Problem details: He will need 4-6 weeks of IV antibiotics Qualifiers: Laterality: left Osteomyelitis location: foot Osteomyelitis type: other acute Qualified Code(s): M86.172 - Other acute osteomyelitis, left ankle and foot Current Visit: Yes Status: Acute Postoperative Procedures Operation Date: 03/15/18 14:45 Actual Procedures Side Surgeon p I&D foot Left Anitha Spencer MD Patient had dressing change yesterday with Dr. Spencer. Nursing is going to confirm with wound care clinic if they are going to manage dressing changes. Patient needs his next dressing change on Wednesday, tomorrow, with saline gauze in wound and Xeroform. Continue current antibiotics. The patient will be heel weight-bearing on the left lower extremity. Quality VTE Deep Vein Thrombosis/Pulmonary Embolism Present on Admission: No
[2018-03-17] MEDS: CEFTRIAXONE 2 GM/50 ML FROZ.PIGGY IV (11:02)
--- NOTE | 2018-03-17 12:01 | PM.PN.1 ---
Subjective Date Patient Seen: 03/17/18 Interval history: patient has no specific complaints. He is agreeable to building mechanic antibiotics He will need 4-6 weeks given MRSA Osteomyelitis No shortness of breath or diarrhea Exam Vital Signs (past 8 hours): - 03/17/18 05:30 03/17/18 05:36 03/17/18 08:00 Temperature 98.0 F 98.1 F Pulse Rate 89 76 Respiratory Rate 16 16 Blood Pressure 179/97 H 139/78 Pulse Oximetry 96 97 98 03/17/18 08:43 03/17/18 09:08 Temperature Pulse Rate Respiratory Rate Blood Pressure Pulse Oximetry 98 96 Oxygen Delivery Method Room Air Oxygen Flow Rate 0 Narrative Exam Narrative: Pleasant male resting comfortably Lungs: clear to auscultation CV: RRR nl Sl S2 Abd: soft/ non tender/ non distended Ext: left foot with dressing in place Objective Labs Result Diagrams: 03/16/18 05:25 03/17/18 05:15 Labs: Laboratory Results - last 24 hr 03/17/18 05:15 Sodium 139 Potassium 4.4 Chloride 105 Carbon Dioxide 19 L BUN 23 H Creatinine 1.30 H Estimated GFR 54.4 L BUN/Creatinine Ratio 17.7 Glucose 274 H D Calcium 8.9 Assessment & Plan (1) Cellulitis: Problem details: Staph Aureus growing. MRSA. PICC placed, plan for 6 weeks IV antibiotics Current visit: Yes Status: Acute (2) Chronic narcotic dependence: Problem details: as above Current visit: Yes Status: Acute (3) Chronic back pain: Problem details: continue usual oxycodone for pain Current visit: Yes Status: Acute (4) Acute renal failure: Problem details: Continue IV hydration, will follow labs closely Will continue to monitor closely Improving. Will discontinue IV now Current visit: Yes Status: Acute (5) Diabetes mellitus: Problem details: Will continue sliding scale insulin, will check fasting lipid profile as well Will start statin Current visit: Yes Status: Acute (6) Diabetic foot ulcer: Problem details: Patient was started on Vancomycin, given MRSA Current visit: Yes Status: Acute (7) Osteomyelitis: Problem details: He will need 4-6 weeks of IV antibiotics Qualifiers: Laterality: left Osteomyelitis location: foot Osteomyelitis type: other acute Qualified Code(s): M86.172 - Other acute osteomyelitis, left ankle and foot Current visit: Yes Status: Acute (8) Gout: Problem details: Received Indomethacin. Given renal failure, will hold consider colchicine for treatment if needed Current visit: Yes Status: Acute Quality VTE Deep Vein Thrombosis/Pulmonary Embolism Present on Admission: No
--- NOTE | 2018-03-17 14:50 | PC.NURSE ---
Student Nurse Patient rested throughout shift in room, and is pleasant when interacting with staff. Pt moved from bed to chair after lunch time c FWW 1PA; remind pt to use heal weight bearing on left foot only - he forgets. Pt gave himself an independent bad bath, and oral hygiene while up in chair. Blood sugars have been increasingly high throughout the shift, first glucose was 237 and second around lunch time was 337. Patient uses call light appropriately and frequently asks for pain medication, oxycodone 10mg Q4hr regularly throughout shift. Pain level maintained at a 6/10 for most of the shift pt states this is a tolerable level for his chronic back pain.
--- NOTE | 2018-03-17 15:09 | CM.DPC ---
DCP Cont: Spoke to hospitalist regarding care, Dr. Obrien, hospitalist. She stated that patient will need to be discharged with IV antibiotics, for he has a PICC line. Understands that cost will not be covered for medication at home with [facility], for patient has Medicare/[employer]. Option would be skilled versus outpatient infusion clinic. Met with patient in room. Patient stated, I really don't want to be here, now they put this line in me and I have to have this medication for a while. Discussed plan, and went over Medicare choice list. Stated, I would never go to [place], don't even ask me, my mom was there. Let him know that this is now an assisted living facility, but he is aware of [facility]. Patient stated, What if I just go there for a couple of hours and go home. Let him know that he can't leave facility, for this is being paid by Medicare, and he would have to stay for a couple of weeks until antibiotic is complete. Discussed outpatient infusion clinic. Stated that he wants to drive, but knows that he's not supposed to. Asked him if a friend can take him, if he elects to go to infusion clinic here at hospital. At this time, patient is not sure, but is open to plans. Went ahead and called Christa at [facility]. Stated that she's not sure if she has openings tomorrow, and would check. Went ahead and faxed clinicals to her. It is unknown at this point if he will consent going to skilled tomorrow. P: Continue to attempt halfway, or other option may be infusion clinic. Mouna Rodarte RN/[employer]
--- NOTE | 2018-03-17 16:01 | PC.NURSE ---
Student nurse note 03/17/2018 6778 Patient is alert and oriented and in a pleasant mood. Pt is sitting in the recliner with both feet propped up. During assessment patient expressed willingness for education on the diabetes disease process. I went into detail on the disease process as well as education on how diet and exercise to improve health. We discussed the possibility of discharging to [facility] and he seemed on board with the idea as long as he is still able to come and go within the facility. I mentioned to him discharge personal can help him in finding an appropriate facility. Dr. Padilla from wound care came to see patient for a consult. Patient was very receptive to education provided. Patient's blood glucose remains elevated at 231, will administer insulin per protocol with primary nurse.
[2018-03-17] MEDS: VANCOMYCIN TROUGH 1 REQUEST MISC (20:00)
[2018-03-17] MEDS: ATORVASTATIN 20 MG TABLET PO (20:27)
[2018-03-17] MEDS: ACETAMINOPHEN 325 MG TABLET 650 MG PO (20:50)
[2018-03-17 20:51] LABS: Vancomycin Trough 7.7 ug/mL (10-20)
[2018-03-17] MEDS: VANCOMYCIN 1,250 MG in SODIUM CHLORIDE 0.9% 250 ML IV (21:01)
[2018-03-17] MEDS: SODIUM CHLORIDE 0.9% 250 ML 21 ML IV (21:02)
[2018-03-17] MEDS: SODIUM CHLORIDE 0.9% FLUSH 10 ML IV (21:02)
--- NOTE | 2018-03-17 22:00 | PC.NURSE ---
SHIFT NOTE (late entry for 03/17) Received pt sitting up in chair. A&Ox3, pt complaining that he hasn't been updated on plan of care or when he will be able to d/c from hospital, but cooperative with care. Dr. Padilla at bedside to assess L foot wound, ordered wet-to-dry dressing 3x/week. also discussed with pt the possibility of wound vac placement and benefits of SNF at d/c. wet-to-dry dressing with gauze, kerlix wrap, and ephraim bandage completed with student RN, pt with neuropathy and able to feel pressure but no complaints of foot pain. pt voiced feeling lonely at home and verbalized understanding of needing more assistance with care, pt seems more receptive to SNF placement. c/o L elbow gout pain and back pain rated 6-7/10, pt with complaints that he's not getting enough oxycodone but also denies needing it every 4 hours. pt prefers to sleep in chair tonight. call light within reach.
--- NOTE | 2018-03-17 22:03 | PC.NURSE ---
Student nurse note 03/17/2018 2200 Patient alert and oriented all shift as well as pleasant to work with. Pain in lower back has been consistent all shift and left elbow is buggy ladle tender with some guarding. More movement in right elbow tonight compared to last night. Patient did ask for indomethacin for the pain in right elbow due to his gout, but medication had been discontinued, administered acetaminophen 650 mg with primary nurse as well as gave him a cup of dickson juice recommended by hi ex- and requested by the patient. Blood glucose range was consistent on this shift, from 236 before dinner and 218 before bed. Insulin was administered with primary nurse per protocol. Dressing change was performed per Dr. Padilla's order and performed with primary nurse. Patient tolerated the dressing change well, he did feel some pressure, but stated no pain. After dressing change patient express a sense of depression stating you know, I'm just so lonely these days. I discussed an option of after treatment looking into assisted living. Patient seems to be ready for lifestyle change and states I'm willing to do whatever it takes. This evening patient's lower back was hurting, medicated with primary nurse and let him know when he could have next dose. Also applied ice to lower back and offered pillow support. Patient wants to sleep in his recliner for tonight. Feet are propped up with recliner with pillow support under left foot. He was resting well as of 2200 and call light within reach.
[2018-03-18] VITALS (9 sets, daily range): BP systolic 132–147; BP diastolic 67–97; PULSE 76–105; RESP 16–19; TEMP 36.6–37.2; O2SAT 97–99
[2018-03-18] MEDS: OXYCODONE IR 10 MG TABLET PO ×4 (00:04→21:28)
--- NOTE | 2018-03-18 05:48 | PC.NURSE ---
pt AO at start of shift, receptive to care and expressed interest in DC'ing to a SNF. Patient requested pain medication for 6/10 pain for chronic back issues, 10mg oxycodone administered at midnight. Patient slept for a majority of the shift, in the chair. PICC line cdi. Urinal used independently in chair.
[2018-03-18] MEDS: INSULIN ASPART 100 UNIT/ML INSULN PEN SUBCUT ×4 (08:41→20:50)
[2018-03-18] MEDS: DOCUSATE 100 MG CAPSULE PO (08:41)
[2018-03-18] MEDS: ACETAMINOPHEN 325 MG TABLET 650 MG PO ×2 (08:41→17:15)
[2018-03-18] MEDS: ENOXAPARIN 40 MG/0.4 ML SYRINGE SUBCUT (10:19)
[2018-03-18] MEDS: VANCOMYCIN 1,000 MG/200 ML FROZ.PIGGY 200 MG IV (10:46)
--- NOTE | 2018-03-18 10:53 | PM.PNPO.1 ---
Subjective Date Patient Seen: 03/18/18 Time Patient Seen: 10:54 Interval history: Hospital day 4, postop day 3 following left foot I and D by Dr. Spencer with MRSA osteomyelitis. Patient currently on vancomycin. He is able to ambulate with heel weight-bearing to the left foot. He was seen by Dr. Spencer yesterday with dressing change. She supposedly put in a referral to wound clinic to do either dressing changes 3 times per week versus wound VAC. He has not been seen by wound clinic yet. Exam Vital Signs (past 8 hours): - 03/18/18 04:15 03/18/18 08:00 Temperature 97.9 F 97.8 F Pulse Rate 76 80 Respiratory Rate 16 16 Blood Pressure 132/76 137/85 Pulse Oximetry 97 97 Oxygen Delivery Method Room Air Oxygen Flow Rate 0 Narrative Exam Narrative: Alert, oriented no acute distress. Patient ambulating in room with walker. Left foot. Dressing is dry without drainage or inflammation. Good blanching toes without sensation. The area of erythema that was demarcated to his left lower leg is significantly resolved. No calf tenderness. Objective Labs Result Diagrams: 03/16/18 05:25 03/17/18 05:15 Labs: Laboratory Results - last 24 hr 03/17/18 20:00 Vancomycin Trough 7.7 L Assessment & Plan Post-op Postoperative Procedures Operation Date: 03/15/18 14:45 Actual Procedures Side Surgeon p I&D foot Left Anitha Spencer MD Patient is waiting wound clinic evaluation for either dressing changes or wound VAC. He does have MRSA infection and be discharged once sensitivity evaluated by hospitalist. Quality VTE Deep Vein Thrombosis/Pulmonary Embolism Present on Admission: No
--- NOTE | 2018-03-18 11:45 | PC.NURSE ---
Addendum entered by Nalini Kumari R.N. 03/18/18 15:00: pain - sitting chair w/le elevated, discussed pain mgt and declines any medication at this time. Original Note: Addendum entered by Nalini Kumari R.N. 03/18/18 12:16: CBG - discussed elev glucose 366 with and he will review, discussed continued discomfort l elbow. Original Note: AM NOTE - Up in chair, irritable, states we are not providing information re when do I get out of here, back pain 8 on scale 0/10, given oxycodone 10mg with breakfast, Lani in from regarding possible tsf to [facility], details have not yet been finalized, lle ephraim wrap over kerlex cdi, pink along calf is withing previous markings, gt toe visible with large dry callous and thickened toenail, hr reg, 1+ pedal, ra 98%.
--- NOTE | 2018-03-18 12:27 | PM.PN.1 ---
Subjective Date Patient Seen: 03/18/18 Interval history: Postop day 3 left foot debridement. Patient is looking forward to getting discharged to [facility]. Blood sugars have been consistently above 200-300 range. Exam Vital Signs (past 8 hours): - 03/18/18 08:00 03/18/18 08:30 Temperature 97.8 F Pulse Rate 80 Respiratory Rate 16 Blood Pressure 137/85 Pulse Oximetry 97 98 Oxygen Delivery Method Room Air Oxygen Flow Rate 0 Narrative Exam Narrative: General: Alert, pleasant, no acute distress Lungs: Breathing nonlabored Extremities: Improved erythema on karimi, the left foot has postop dressing Objective Labs Result Diagrams: 03/16/18 05:25 03/17/18 05:15 Labs: Laboratory Results - last 24 hr 03/17/18 20:00 Vancomycin Trough 7.7 L Assessment & Plan Plan: Assessment/Plan Narrative: 1. 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 Last vancomycin trough level 7 and dose adjusted by pharmacy. Plan is to discharge to [facility] to complete 4-6 weeks of IV antibiotic. 2. Type 2 diabetes, new diagnosis, with diabetic foot ulcer left foot: Glucose running 200-300 range, A1c greater than 10. Patient states he was not aware of having diabetes prior to this admission although his home medication list includes metformin. Started Lantus 20 units at night. Restarted metformin 500 mg b.i.d. now that renal function has improved. 3. Acute kidney injury, responded to IV hydration. Serum creatinine 1.8 on admit and improved to 1.3 4. Acute gout left elbow: Improving 5. Cigarette dependence: Encouraged to quit smoking 6. Chronic back pain, opioid dependence: Continued on his routine oxycodone 7. Disposition: Patient was stabilizing hospital course and awaiting authorization for transfer to [facility] to continue IV antibiotic and rehab. Quality VTE Deep Vein Thrombosis/Pulmonary Embolism Present on Admission: No
--- NOTE | 2018-03-18 13:47 | CM.DPC ---
DCP: continued: Case again received, EMR for last few days reviewed and picked up a vm early this morning from [facility]. [phone]. She wanted to know what the status of the wound vac was. She said that their wound doctor/ Dr. Joseph (sp?) had been to see pt in hospital and was recommending a wound vac. No note from him is avaible in the EMR. Discussed this with RN Nalini who noted she knew nothing of this. Met then with pt and went over his d/c plan. He said he has no problem going to [facility] and thinks this would be best. He is eager for d/c. I think they won't poke me with so many needles there and I will get some therapy.. He confirmed his POA Selma (ex ) does know about this plan and that she has been visiting. Discussed in Team Rounds this morning [address] Shoemaker and Ortho KEMAL Suazo. Neither were aware of this plan but ortho surgeon Dr. Merino had requested wound care followup at d/c. Christa/[facility], now with access to view EMR, was aware of all this and said [facility] was reviewing pt still for acceptance. If wound vac is part of plan they will need to consider this in the acceptance process. A home plan with outpt care is not feasible at this time and pt is very willing to go to [facility]. Is noted that he has new diagnosis of diabetes which make his overall d/c POC more complex. P: will await clarity from the provider team and go from there. Of note: going to [facility] for snf level care and at same time going to wound clinic for outpt management at same time is not compatible with Medicare snf guidelines. Need: PASRR : will do as plan is clearer.
[2018-03-18] MEDS: ATORVASTATIN 20 MG TABLET PO (20:48)
[2018-03-18] MEDS: INSULIN GLARGINE 100 UNIT/ML 3ML PEN 20 UNIT SUBCUT (20:49)
[2018-03-18] MEDS: VANCOMYCIN 1,000 MG/200 ML FROZ.PIGGY 2200 MG IV (20:49)
[2018-03-18] MEDS: SODIUM CHLORIDE 0.9% FLUSH 10 ML IV ×2 (20:54→23:49)
[2018-03-18] MEDS: SODIUM CHLORIDE 0.9% 250 ML 21 ML IV (21:01)
--- NOTE | 2018-03-18 21:53 | PC.NURSE ---
SHIFT NOTE Received pt sitting up in chair. Ox3. L foot dressing CDI. pt with continued complaints of L elbow pain due to gout, states PRN tylenol and oxycodone ineffective. MD notified but per MD, pt states pain has improved so nothing new ordered at this time. pt voicing feeling a little depressed about having to be in the hospital and coping with new diagnosis of diabetes and managing his foot wound. RUE PICC intact. pt currently resting. call light within reach.
[2018-03-18] MEDS: HYDROMORPHONE 1 MG INJ IV (23:46)
[2018-03-19] VITALS (9 sets, daily range): BP systolic 112–151; BP diastolic 68–85; PULSE 77–92; RESP 16–18; TEMP 36.4–36.9; O2SAT 94–98
[2018-03-19] MEDS: HYDROMORPHONE 1 MG INJ IV (03:17)
--- NOTE | 2018-03-19 03:27 | PC.NURSE ---
Patient having severe pain in his left elbow from Gout. PRN pain meds not working as effeciently as he would like. Only some relief with the Dilaudid. Pt expressed need for a gout medication to be started
[2018-03-19] MEDS: ENOXAPARIN 40 MG/0.4 ML SYRINGE SUBCUT (08:29)
[2018-03-19] MEDS: INSULIN ASPART 100 UNIT/ML INSULN PEN SUBCUT ×4 (08:30→20:40)
[2018-03-19] MEDS: DOCUSATE 100 MG CAPSULE PO (08:30)
[2018-03-19] MEDS: OXYCODONE IR 10 MG TABLET PO ×4 (08:45→23:58)
[2018-03-19 09:16] LABS: Vancomycin Trough 20.4 ug/mL (10-20)
[2018-03-19] MEDS: VANCOMYCIN TROUGH 1 REQUEST MISC (09:45)
[2018-03-19] MEDS: INDOMETHACIN 25 MG CAPSULE 75 MG PO ×2 (10:34→17:02)
--- NOTE | 2018-03-19 10:55 | P.PN_ITS ---
Subjective Date Patient Seen: 03/19/18 (He is seen today to follow up the left foot surgery and the new complaint of left elbow gout swelling. His creatinine has improved from 1.8 down to 1.3. He has previously used indomethacin for his gout with good effect. He has never taken allopurinol before. He does not like colchicine because of) Interval history: He is seen today to follow up the left foot infection/surgery and a new problem of left elbow gout flare. He also has chronic kidney disease. The creatinine has dropped from 1.8-1.3. There is some discussion of putting a wound VAC on his left foot. The vancomycin level is high at 20.4. He has never taken allopurinol. He does not like the idea of taking colchicine because of the diarrhea relationship. He would like to take the indomethacin for a few days. Exam Vital Signs (past 8 hours): - 03/19/18 03:15 03/19/18 08:00 Temperature 98.4 F 98.3 F Pulse Rate 89 92 H Respiratory Rate 17 16 Blood Pressure 133/74 151/73 H Pulse Oximetry 95 95 Oxygen Delivery Method Room Air Oxygen Flow Rate 0 Narrative Exam Narrative: Alert and oriented x3. The left elbow is diffusely swollen, warm to the touch and exquisitely tender. Range of motion is very restricted. The left foot is in a brace/wrap. There is no ankle edema. Heart is regular rate and rhythm without murmur. Lungs are clear to auscultation bilaterally. Objective Labs Result Diagrams: 03/16/18 05:25 03/17/18 05:15 Labs: Laboratory Results - last 24 hr 03/19/18 08:34 Vancomycin Trough 20.4 H* Assessment & Plan Plan: Assessment/Plan Narrative: 1. Acute left foot abscess and osteomyelitis due to MRSA, status post I&D left foot on 03/15/2018: He is receiving IV vancomycin via PICC line. Last vancomycin trough level has risen from 7 up to 20 and so the dose will be adjusted again. Plan is to discharge to [facility] to complete 4-6 weeks of IV antibiotic-vancomycin. 2. Type 2 diabetes, new diagnosis, with diabetic foot ulcer left foot: Glucose running 200-300 range, A1c greater than 10. Patient states he was not aware of having diabetes prior to this admission although his home medication list includes metformin. Now on Lantus 20 units at night. Restarted metformin 500 mg b.i.d. now that renal function has improved. 3. Acute kidney injury, responded to IV hydration. Serum creatinine 1.8 on admit and improved to 1.3 4. Acute gout left elbow: Flaring again and so will use indomethacin sparingly for a day or so. 5. Cigarette dependence: Encouraged to quit smoking 6. Chronic back pain, opioid dependence: Continued on his routine oxycodone 7. Disposition: Patient was stabilizing hospital course and awaiting authorization for transfer to [facility] to continue IV antibiotic and rehab. Quality VTE Deep Vein Thrombosis/Pulmonary Embolism Present on Admission: No
--- NOTE | 2018-03-19 11:30 | CM.DPC ---
DCP: continued: Case discussed in Team Rounds today with Dr. Green, on now as hospitalist. Spoke later with Dr. Jain and ortho KEMAL Zepeda. Ortho team noted they were unclear re the status of the referral to the wound care clinic. Explained that Ortho KEMAL Suazo and Dr. Shoemaker had been aware of this yesterday and the plan had been for the providers to sort this out with the wound care physician. [facility] remained on hold yesterday in terms of acceptance, needing further info on the ? wound vac treatment. Now today, Wednesday, Unique is on at [facility] for admissions: Have left her an update via her cell: [phone] with request for clarity re status of acceptance. Will await further direction from the provider team and proceed accordingly. Will check in with pt when more is known.
[2018-03-19] MEDS: VANCOMYCIN 750 MG/150 ML FROZ.PIGGY 150 MG IV ×2 (12:56→23:51)
--- NOTE | 2018-03-19 13:58 | PM.PNPO.1 ---
Subjective Date Patient Seen: 03/19/18 Time Patient Seen: 13:58 Interval history: POD #4 status post I and D of subcutaneous tissue and muscle fascia of foot. I changed the dressing today. Patient has no complaints today. Plan is to go to [facility] on Wednesday. There seems to be confusion on if wound care has seen the patient or did dressing changes. Discussing with nursing in reviewing past notes, and care management appears wound care came in on Wednesday and saw the patient. There is no formal notes documenting this in our system. It was passed on that they were recommending a wound VAC at [facility]. Exam Vital Signs (past 8 hours): - 03/19/18 07:00 03/19/18 08:00 03/19/18 12:00 Temperature 98.3 F 98.3 F Pulse Rate 92 H 84 Respiratory Rate 16 16 Blood Pressure 151/73 H 123/75 Pulse Oximetry 95 95 97 Oxygen Delivery Method Room Air Oxygen Flow Rate 0 Narrative Exam Narrative: Patient lying in bed in no acute distress. He is alert and oriented x3. Dressing on foot changed. Sterile gauze soaked in saline packed into incision. Xeroform applied and additional 4x4s around wound. According to nursing cellulitis appears to be improving over the past few days. Objective Labs Result Diagrams: 03/16/18 05:25 03/17/18 05:15 Labs: Laboratory Results - last 24 hr 03/19/18 08:34 Vancomycin Trough 20.4 H* Assessment & Plan Post-op Postoperative Procedures Operation Date: 03/15/18 14:45 Actual Procedures Side Surgeon p I&D foot Left Anitha Spencer MD Dressing changed today by me. Dressing should be changed again on Wednesday AM. Wound VAC order should be in place for [facility] as that is the current recommendation. Dr. Spencer made aware of plan and she agrees. Continue mobilizing with physical therapy. Plan to discharge to [facility] on Wednesday. Quality VTE Deep Vein Thrombosis/Pulmonary Embolism Present on Admission: No
--- NOTE | 2018-03-19 14:04 | P.PN_ITS ---
Subjective Date Patient Seen: 03/19/18 Time Patient Seen: 13:58 Interval history: POD #4 status post I and D of subcutaneous tissue and muscle fascia of foot. I changed the dressing today. Patient has no complaints today. Plan is to go to [facility] on Wednesday. There seems to be confusion on if wound care has seen the patient or did dressing changes. Discussing with nursing in reviewing past notes, and care management appears wound care came in on Wednesday and saw the patient. There is no formal notes documenting this in our system. It was passed on that they were recommending a wound VAC at [facility]. Exam Vital Signs (past 8 hours): - 03/19/18 07:00 03/19/18 08:00 03/19/18 12:00 Temperature 98.3 F 98.3 F Pulse Rate 92 H 84 Respiratory Rate 16 16 Blood Pressure 151/73 H 123/75 Pulse Oximetry 95 95 97 Oxygen Delivery Method Room Air Oxygen Flow Rate 0 Narrative Exam Narrative: Patient lying in bed in no acute distress. He is alert and oriented x3. Dressing on foot changed. Sterile gauze soaked in saline packed into incision. Xeroform applied and additional 4x4s around wound. According to nursing cellulitis appears to be improving over the past few days. Objective Labs Result Diagrams: 03/16/18 05:25 03/17/18 05:15 Labs: Laboratory Results - last 24 hr 03/19/18 08:34 Vancomycin Trough 20.4 H* Assessment & Plan Post-op Postoperative Procedures Operation Date: 03/15/18 14:45 Actual Procedures Side Surgeon p I&D foot Left Anitha Spencer MD Dressing changed today by me. Dressing should be changed again on Wednesday AM. Wound VAC order should be in place for [facility] as that is the current recommendation. Dr. Spencer made aware of plan and she agrees. Continue mobilizing with physical therapy. Plan to discharge to [facility] on Wednesday. Quality VTE Deep Vein Thrombosis/Pulmonary Embolism Present on Admission: No
--- NOTE | 2018-03-19 16:39 | PC.NURSE ---
Addendum entered by Sridevi Leo R.N. 03/19/18 21:48: Pt had relatively uneventful evening. Med @ 2000 for discomfort w/minimal relief. HS CBG = 400; covered as per S/S and lantus, as per orders. Call light w/in reach, bed alarm on for pt safety. Continue w/plan of care. Original Note: Pt watching TV. States discomfort 10/10. Med w/ Oxyconde at this time. Lungs clear, SpO2 95% RA. Dsg to left foot CDI. JELENA PICC intact/patent. AC CBG = 232, S/S insulin as per orders given. Call lithe w/in reach, bed alarm on for pt safety.
[2018-03-19] MEDS: INSULIN GLARGINE 100 UNIT/ML 3ML PEN 20 UNIT SUBCUT (20:42)
[2018-03-19] MEDS: ATORVASTATIN 20 MG TABLET PO (20:54)
[2018-03-19] MEDS: SODIUM CHLORIDE 0.9% 250 ML 21 ML IV (23:52)
[2018-03-20 02:44] VITALS: BP 128/74; PULSE 74; RESP 18; TEMP 36.3; O2SAT 97
[2018-03-20 08:00] VITALS: BP 125/72; PULSE 76; RESP 16; TEMP 36.8; O2SAT 99
[2018-03-20] MEDS: ENOXAPARIN 40 MG/0.4 ML SYRINGE SUBCUT (08:13)
[2018-03-20] MEDS: DOCUSATE 100 MG CAPSULE PO ×2 (08:13→20:10)
[2018-03-20] MEDS: INDOMETHACIN 25 MG CAPSULE 75 MG PO ×2 (08:13→17:02)
[2018-03-20] MEDS: INSULIN ASPART 100 UNIT/ML INSULN PEN SUBCUT ×4 (08:17→20:12)
[2018-03-20 08:57] LABS: Estimated Glomerular Filt Rate 46.1 mL/min (>60)
[2018-03-20] MEDS: OXYCODONE IR 10 MG TABLET PO ×3 (10:00→20:32)
--- NOTE | 2018-03-20 10:42 | PM.PN.1 ---
Subjective Date Patient Seen: 03/20/18 Interval history: He is feeling much better on the indomethacin, to treat the gout in the left elbow. He will be receiving a wound VAC on the foot tomorrow when he arrives at [facility] intermediate Facility. He is moving around in the room much better. He is seen today to follow-up the gout and the left foot ulcer, also followed by Podiatry. Exam Vital Signs (past 8 hours): - 03/20/18 02:44 03/20/18 08:00 Temperature 97.4 F L 98.2 F Pulse Rate 74 76 Respiratory Rate 18 16 Blood Pressure 128/74 125/72 Pulse Oximetry 97 99 Oxygen Delivery Method Room Air Oxygen Flow Rate 0 Narrative Exam Narrative: Alert and oriented x3. No apparent distress. Heart regular rate and rhythm without murmur. Lungs clear to auscultation bilaterally. Abdomen soft, nontender, no organomegaly. Extremities have no ankle edema. There is a large bulky wound dressing on the left foot. The left elbow is no longer swollen, tender, warm. Objective Labs Result Diagrams: 03/16/18 05:25 03/20/18 08:30 Labs: Laboratory Results - last 24 hr 03/20/18 08:30 Creatinine 1.50 H Estimated GFR 46.1 L Assessment & Plan Plan: Assessment/Plan Narrative: 1. Acute left foot abscess and osteomyelitis due to MRSA, status post I&D left foot on 03/15/2018: He is receiving IV vancomycin via PICC line. Last vancomycin trough level has risen from 7 up to 20 yesterday and so the dose was adjusted. Plan is to discharge to [facility] tomorrow - Wednesday, to complete 6 weeks of IV antibiotic-vancomycin. 2. Type 2 diabetes, new diagnosis, with diabetic foot ulcer left foot: Glucose running 200-300 range, A1c greater than 10. Patient states he was not aware of having diabetes prior to this admission although his home medication list includes metformin. Now on Lantus 20 units at night. Restarted metformin 500 mg b.i.d. now that renal function has improved. 3. Acute kidney injury, responded to IV hydration. Serum creatinine 1.8 on admit and improved to 1.3 4. Acute gout left elbow: Continue short course of Indomethacin, stopping as soon as possible to avoid GI and renal problems. 5. Cigarette dependence: Encouraged to quit smoking 6. Chronic back pain, opioid dependence: Continued on his routine oxycodone 7. Disposition: Awaiting transfer to [facility] to continue IV antibiotic and rehab. He has not been able to go this weekend because of the wound VAC, which the facility will not have available to put on him until Wednesday. Quality VTE Deep Vein Thrombosis/Pulmonary Embolism Present on Admission: No
[2018-03-20 12:00] VITALS: BP 134/80; PULSE 74; RESP 16; TEMP 36.7; O2SAT 97
[2018-03-20] MEDS: VANCOMYCIN 750 MG/150 ML FROZ.PIGGY 150 MG IV (12:32)
[2018-03-20 15:40] VITALS: BP 141/87; PULSE 79; RESP 18; TEMP 36.6; O2SAT 96
[2018-03-20 19:28] VITALS: BP 130/80; PULSE 76; RESP 18; TEMP 36.8; O2SAT 96
[2018-03-20] MEDS: ATORVASTATIN 20 MG TABLET PO (20:10)
[2018-03-20] MEDS: SENNOSIDES 8.6 MG TABLET 17.2 MG PO (20:11)
[2018-03-20] MEDS: INSULIN GLARGINE 100 UNIT/ML 3ML PEN 20 UNIT SUBCUT (20:13)
[2018-03-20 23:30] VITALS: O2SAT 97
--- NOTE | 2018-03-20 23:36 | PC.NURSE ---
Pt up in chair for most of shift. A/O x3, 96%RA, LS clear, denies SOB. BT+, denies nausea. Erythemia decreased within marked boarders, to left karimi, seft foot drsg CDI, ortho boot on wheelchair in room. 1PA to get back to bed, using urinal indep, clear yellow urine. JELENA PICC Hep loc. CBG 300-2units, 270-0 coverage + 20units nish @ 2029. Wound clinic here tomorrow to change drsg, place wound vac and boot, then transfer to [facility]. call light in reach and uses appropriately. Oxycodone 10mg PO PRN for pain, admin 1 tab @ 2029.
--- NOTE | 2018-03-21 00:04 | PC.NURSE ---
Lab drawn for vanco trough.
[2018-03-21 00:05] VITALS: BP 131/78; PULSE 73; RESP 18; TEMP 36.6; O2SAT 97
[2018-03-21] MEDS: OXYCODONE IR 10 MG TABLET PO ×3 (00:16→13:37)
[2018-03-21 00:53] LABS: Vancomycin Trough 20.5 ug/mL (10-20)
--- NOTE | 2018-03-21 01:46 | PM.EVENT ---
Date Patient Seen: 03/21/18 Time Patient Seen: 01:46 Vanc trough 20.5 on 03/20 23:53 lab draw. Patient is being treated for osteomyelitis, which requires a higher trough level to be optimally effective. Preferred trough level is between 15-20. No need to hold the dose tonight. Currently at 750 mg q.12 hours. Okay to administer dose tonight. Also, pharmacy will be evaluating in the morning.
--- NOTE | 2018-03-21 01:57 | PC.NURSE ---
vanco trough toxic level 20.5 per lab report. Spoke to night hospitalist and coordinator. Originally held dose, but due to differing levels for osteomyelitis, per pharmacy,coordinator, hospitalist, give due dose now.
[2018-03-21] MEDS: VANCOMYCIN 750 MG/150 ML FROZ.PIGGY 150 MG IV (02:00)
--- NOTE | 2018-03-21 02:00 | PC.NURSE ---
Patient id band on right wrist is not scanning according to computer. Does activate, but then makes that statement. Med is given and patient was scanned.
[2018-03-21 03:39] VITALS: BP 124/74; PULSE 72; RESP 16; TEMP 36.4; O2SAT 97
[2018-03-21 07:59] VITALS: BP 121/74; PULSE 68; RESP 18; TEMP 36.6; O2SAT 97
[2018-03-21] MEDS: INDOMETHACIN 25 MG CAPSULE 75 MG PO (08:08)
[2018-03-21] MEDS: ACETAMINOPHEN 325 MG TABLET 650 MG PO (08:08)
[2018-03-21] MEDS: DOCUSATE 100 MG CAPSULE PO (08:09)
[2018-03-21] MEDS: ENOXAPARIN 40 MG/0.4 ML SYRINGE SUBCUT (08:10)
--- NOTE | 2018-03-21 08:13 | P.PN_ITS ---
Subjective Date Patient Seen: 03/21/18 Time Patient Seen: 08:09 Interval history: Patient is postop day 6. Status post I and D of subcutaneous tissue and muscle layer fascia foot by Dr. Spencer. Receiving IV antibiotics. Medical issues are being managed by internal medicine. He is post be discharged to [facility] today where a wound vac will be placed. Dressing change today. Exam Vital Signs (past 8 hours): - 03/21/18 03:39 03/21/18 07:59 Temperature 97.5 F L 97.9 F Pulse Rate 72 68 Respiratory Rate 16 18 Blood Pressure 124/74 121/74 Pulse Oximetry 97 97 Oxygen Delivery Method Room Air Oxygen Flow Rate 0 Narrative Exam Narrative: Patient in bed. Appears comfortable. Left foot dressing is clean dry and intact. Dressing changed. The distal tibia area is less red. Numbness in all toes. Can move toes. Objective Labs Result Diagrams: 03/16/18 05:25 03/20/18 08:30 Labs: Laboratory Results - last 24 hr 03/20/18 03/20/18 08:30 23:53 Creatinine 1.50 H Estimated GFR 46.1 L Vancomycin Trough 20.5 H* Postop day 6. Continue IV antibiotics. Wound VAC will be placed when he gets to [facility]. Continue mobilization with physical therapy. Follow up with Dr. Spencer in 10-14 days. Assessment & Plan Post-op Postoperative Procedures Operation Date: 03/15/18 14:45 Actual Procedures Side Surgeon p I&D foot Left Anitha Spencer MD Quality VTE Deep Vein Thrombosis/Pulmonary Embolism Present on Admission: No
[2018-03-21] MEDS: INSULIN ASPART 100 UNIT/ML INSULN PEN SUBCUT ×2 (08:21→12:05)
[2018-03-21] MEDS: SODIUM CHLORIDE 0.9% FLUSH 10 ML IV (08:25)
[2018-03-21 08:36] VITALS: O2SAT 97
[2018-03-21 11:35] VITALS: BP 122/76; PULSE 82; RESP 18; TEMP 36.8; O2SAT 98
--- NOTE | 2018-03-21 12:08 | CM.DPC ---
DCP Cont: Called Unique at [facility] to confirm that patient could be accepted to facility today. She stated that they would accept him, and that they do have a wound vac available. Discussed patient at rounds, and discharge orders obtained. Have updated Christa at [facility], and she had questions regarding discharge. Was inquiring on wound vac placement orders, for now, patient does not have. Also questioning next Vanco administration, as well as trough. Asked Zaynab, patient's nurse, to give Christa a call. Faxed over discharge information to Christa, which indicates information as to when next trough is due, as well as Vancomycin dose. 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 P: Patient is to be discharged to [facility] today, where he will continue with antibiotic treatment, as well as wound care. Mouna Rodarte RN/Powertrain Design Engineer
[2018-03-21] MEDS: VANCOMYCIN 500 MG in SODIUM CHLORIDE 0.9% 100 ML 133.333 ML IV (13:37)
--- NOTE | 2018-03-21 15:56 | PC.NURSE ---
Transfer to SNF: (left at 1500) Given 1400 dose of Vanco prior to discharge (per request from [facility] and with the okay of pharmacy). PICC line left in place, heplocked. All belongings packed and sent with patient at discharge, including home meds that were retrieved from pharmacy. Transfer packet sent with patient, including script for Oxycodone. Transferred into wheelchair and taken out by [facility] staff. Report called to Zeina at [facility].
--- NOTE | 2018-03-27 17:43 | PM.CN ---
History of Present Illness Chief complaint: LEFT FOOT ULCER [facility] Medical History TIA (transient ischemic attack) (Acute) Hx of rheumatic fever (Chronic) Osteomyelitis (Chronic) Family History Father Alcoholism /alcohol abuse Social History household members: friend(s) Smoking Status: Never smoker alcohol intake: never Meds Home Medications Medication Instructions Recorded Confirmed Type acetaminophen 650 mg PO Q6HR PRN #30 tab 03/21/18 03/25/18 Rx docusate sodium 100 mg PO BID #30 cap 03/21/18 03/25/18 Rx sennosides [senna] 17.2 mg PO BEDTIME #30 tab 03/21/18 03/25/18 Rx vancomycin in 0.9 % sodium chl 500 mg IV Q12H 42 Days #8400 ml 03/21/18 03/25/18 Rx Vancomycin Hcl Solution 900 mg PO DAILY 03/25/18 03/25/18 History acetaminophen 1,000 mg PO BID 03/25/18 03/25/18 History bisacodyl 5 mg PO PRN PRN 03/25/18 03/25/18 History bisacodyl 10 mg UT DAILY PRN 03/25/18 03/25/18 History insulin lispro SUBCUT ACHS 03/25/18 History magnesium hydroxide [Milk of 30 ml PO PRN PRN 03/25/18 03/25/18 History Magnesia] sodium phosphates [Fleet Enema] UT PRN 03/25/18 History atorvastatin [Lipitor] 40 mg PO BEDTIME #60 tab 03/26/18 03/25/18 Rx lisinopril 20 mg PO DAILY #30 tab 03/26/18 Rx oxycodone 10 mg PO Q8H PRN #20 tab 03/26/18 03/25/18 Rx Allergies Allergy/AdvReac Type Severity Reaction Status Date / Time dexamethasone Allergy Verified 03/14/18 18:31 quinine Allergy Verified 03/14/18 18:31 Sulfa (Sulfonamide Allergy Verified 03/14/18 18:31 Antibiotics) Exam Vital Signs (past 8 hours): Oxygen Delivery Method Room Air Oxygen Flow Rate 0 Objective Labs Result Diagrams: 03/16/18 05:25 03/20/18 08:30
--- NOTE | 2018-03-27 17:53 | P.CONS_ITS ---
History of Present Illness Chief complaint: LEFT FOOT ULCER [facility] Medical History TIA (transient ischemic attack) (Acute) Hx of rheumatic fever (Chronic) Osteomyelitis (Chronic) Family History Father Alcoholism /alcohol abuse Social History household members: friend(s) Smoking Status: Never smoker alcohol intake: never Meds Home Medications Medication Instructions Recorded Confirmed Type acetaminophen 650 mg PO Q6HR PRN #30 tab 03/21/18 03/25/18 Rx docusate sodium 100 mg PO BID #30 cap 03/21/18 03/25/18 Rx sennosides [senna] 17.2 mg PO BEDTIME #30 tab 03/21/18 03/25/18 Rx vancomycin in 0.9 % sodium chl 500 mg IV Q12H 42 Days #8400 ml 03/21/18 03/25/18 Rx Vancomycin Hcl Solution 900 mg PO DAILY 03/25/18 03/25/18 History acetaminophen 1,000 mg PO BID 03/25/18 03/25/18 History bisacodyl 5 mg PO PRN PRN 03/25/18 03/25/18 History bisacodyl 10 mg SC DAILY PRN 03/25/18 03/25/18 History insulin lispro SUBCUT ACHS 03/25/18 History magnesium hydroxide [Milk of 30 ml PO PRN PRN 03/25/18 03/25/18 History Magnesia] sodium phosphates [Fleet Enema] SC PRN 03/25/18 History atorvastatin [Lipitor] 40 mg PO BEDTIME #60 tab 03/26/18 03/25/18 Rx lisinopril 20 mg PO DAILY #30 tab 03/26/18 Rx oxycodone 10 mg PO Q8H PRN #20 tab 03/26/18 03/25/18 Rx Allergies Allergy/AdvReac Type Severity Reaction Status Date / Time dexamethasone Allergy Verified 03/14/18 18:31 quinine Allergy Verified 03/14/18 18:31 Sulfa (Sulfonamide Allergy Verified 03/14/18 18:31 Antibiotics) Exam Vital Signs (past 8 hours): Oxygen Delivery Method Room Air Oxygen Flow Rate 0 Objective Labs Result Diagrams: 03/16/18 05:25 03/20/18 08:30
--- NOTE | 2018-05-11 18:41 | PM.DS.1 ---
History of Present Illness Chief complaint: LEFT FOOT ULCER Narrative: Patient is a 72 y/o male with a new diagnosis of diabetes mellitus, peripheral neuropathy, who reports he developed redness of the left foot on Wednesday 4 nights prior to admission. He reports pin point redness of the foot. He was evaluated at [facility] in [place] on Wednesday. They started him on metformin, doxycycline, and keflex for his cellulitis. The patient denies any pain, fever, chills, nausea, vomiting, or prior history of cellulitis. The patient reports he developed increased redness, blistering of the foot/toe the following day. He went back to [facility] where they recommended hospitalization for treatment. The patient declined as he wanted to be hospitalized closer to home in [place]. He presented to the Emergency Department last night where foot xrays confirmed what appears to be osteomyelitis. The patient reports no factors that make his symptoms better or worse. He was newly diagnosed with diabetes. He has chronic back pain with associated numbness which he attributed his foot numbness too. The patient is admitted for further evaluation. Discharge Providers Date of admission: 03/14/18 22:02 Primary care physician: Chloé Nguyen PA-C Consults: 03/15/18 11:10 Consult to Discharge Planning Routine Comment: 03/15/18 15:35 Consult to Orthopedic Surgery Routine Comment: Consulting Provider: Anitha Spencer Reason for consultation: foot ulcer Has provider been notified: Yes 03/16/18 20:02 Consult to Wound Care Routine Comment: Consulting Provider: Mary [facility] 03/17/18 11:59 Consult to Wound Care Routine Comment: Consulting Provider: Mary [facility] Discharge provider: Sujatha Obrien MD Discharge Date: 03/21/18 Summary Discharge Diagnosis: Osteomyelitis of the left foot Status post I&D of the subcutaneous tissue and muscle fascia Left foot infection secondary to MRSA Type 2 diabetes History of r rheumatic heart disease Gout Hypertension Chronic kidney disease stage 3 History of TIA Hospital Course: Patient was admitted to the hospital for evaluation of a left foot infection. He had previously been seen at [facility] in [place] while up with a recommended definitive treatment patient left the hospital presented to [facility] for further evaluation. Patient had a significant infection involving the left foot. He was seen quickly in consultation by Orthopedics and taken to the OR for I&D and debridement. The patient tolerated the procedure well. Postoperatively cultures grew MRSA. Wound VAC was placed on the area. The patient developed an episode of gout during his hospital stay. Was treated accordingly with improvement of his symptoms. He continued on vancomycin, diabetes was treated, hypertension was treated, and he ultimately was deemed appropriate for discharge to [facility] for ongoing care. Status at Discharge Functional status at discharge: uses cane/walker Overall status at discharge: patient is back to baseline Time Spent with Patient Less than 30 minutes Exam Vital Signs (past 8 hours): Oxygen Delivery Method Room Air Oxygen Flow Rate 0 Objective Labs Result Diagrams: 03/16/18 05:25 03/20/18 08:30 Discharge Plan Discharge Plan Patient Disposition: SNF Transfer to: [facility] Under care of provider: Dr. Paulino Jain Transportation: [facility] Labs: Bmp q , vanco peak and trough level 03/22/2018 I certify the postop hospital long-term care is medically necessary on a continuing basis for any conditions for which he/ she received care during this hospitalization.: Yes The receiving facility has agreed to accept transfer and provide medical treatment.: Yes Discharge Med Rec/Prescriptions Prescriptions: New sennosides [senna] 8.6 mg Tablet 17.2 mg PO BEDTIME Qty: 30 RF: 0 acetaminophen 325 mg Tablet 650 mg PO Q6HR PRN (Reason: As Needed For Fever/Mild Pain) Qty: 30 RF: 0 docusate sodium 100 mg Capsule 100 mg PO BID Qty: 30 RF: 0 Discontinued doxycycline monohydrate 100 mg capsule 100 mg PO BID RF: 0 cephalexin 500 mg capsule 500 mg PO QID RF: 0 No Action acetaminophen 500 mg Tablet 1,000 mg PO BID RF: 0 magnesium hydroxide [Milk of Magnesia] 400 mg/5 mL Suspension 30 ml PO PRN PRN (Reason: Constipation) RF: 0 bisacodyl 10 mg Suppository 10 mg [place] DAILY PRN (Reason: Constipation) RF: 0 sodium phosphates [Fleet Enema] 19-7 gram/118 mL Enema IL PRN (Reason: Constipation) RF: 0 bisacodyl 5 mg Tablet,Delayed Release (Dr/Ec) 5 mg PO PRN PRN (Reason: Constipation) RF: 0 insulin lispro 100 unit/mL Insulin Pen subcut ACHS RF: 0 Vancomycin Hcl Solution 900 mg PO DAILY RF: 0 lisinopril 20 mg Tablet 20 mg PO DAILY Qty: 30 RF: 0 atorvastatin [Lipitor] 20 mg Tablet 40 mg PO BEDTIME Qty: 60 RF: 0 oxycodone 10 mg tablet 10 mg PO Q8H PRN (Reason: Back Pain) Qty: 20 RF: 0 Follow up/Referrals: Chloé Nguyen PA-C [Primary Care Provider] - Discharge Health Status Brief summary of current health status: Alert and oriented X3. SBA with FWW. PICC line RUE (inserted 03/16). Wound vac to be placed, pressure and all other settings to be ordered by the provider at [facility] who will be managing it. Takes Oxycodone 10 mg for pain. ADA diet, thin liquids. Meds whole. Blood sugars AC/HS, today was 208 and 269. Multidrug resistant organism: MRSA Provider Discharge Instructions Diet: Carb-consistent/Diabetic Liquid consistency: Normal/Thin Food texture: Regular Activity: Per Physical therapy Skin/Wound/Dressing Care Dressing: patient will need negative pressure wound therapy while at [facility] Special Rehabilitation Services Rehab type: Physical therapy and Occupational therapy Discharge Data Primary Care Provider: Chloé Nguyen Attending Provider: Jesus Ferrell Admit Date/Time: 03/14/18 22:02 Discharges patient from system. Discharge Date/Time: 03/21/18 15:00 Quality VTE Deep Vein Thrombosis/Pulmonary Embolism Present on Admission: No
--- NOTE | 2018-05-11 18:46 | P.DS_ITS ---
History of Present Illness Chief complaint: LEFT FOOT ULCER Narrative: Patient is a 72 y/o male with a new diagnosis of diabetes mellitus, peripheral neuropathy, who reports he developed redness of the left foot on Wednesday 4 nights prior to admission. He reports pin point redness of the foot. He was evaluated at [facility] in [place] on Wednesday. They started him on metformin, doxycycline, and keflex for his cellulitis. The patient denies any pain, fever, chills, nausea, vomiting, or prior history of cellulitis. The patient reports he developed increased redness, blistering of the foot/toe the following day. He went back to [facility] where they recommended hospitalization for treatment. The patient declined as he wanted to be hospitalized closer to home in [place]. He presented to the Emergency Department last night where foot xrays confirmed what appears to be osteomyelitis. The patient reports no factors that make his symptoms better or worse. He was newly diagnosed with diabetes. He has chronic back pain with associated numbness which he attributed his foot numbness too. The patient is admitted for further evaluation. Discharge Providers Date of admission: 03/14/18 22:02 Primary care physician: Chloé Nguyen PA-C Consults: 03/15/18 11:10 Consult to Discharge Planning Routine Comment: 03/15/18 15:35 Consult to Orthopedic Surgery Routine Comment: Consulting Provider: Anitha Spencer Reason for consultation: foot ulcer Has provider been notified: Yes 03/16/18 20:02 Consult to Wound Care Routine Comment: Consulting Provider: Mary Kate Wound [facility] 03/17/18 11:59 Consult to Wound Care Routine Comment: Consulting Provider: Mary [facility] Discharge provider: Sujatha Obrien MD Discharge Date: 03/21/18 Summary Discharge Diagnosis: Osteomyelitis of the left foot Status post I&D of the subcutaneous tissue and muscle fascia Left foot infection secondary to MRSA Type 2 diabetes History of r rheumatic heart disease Gout Hypertension Chronic kidney disease stage 3 History of TIA Hospital Course: Patient was admitted to the hospital for evaluation of a left foot infection. He had previously been seen at [facility] in [place] while up with a recommended definitive treatment patient left the hospital presented to [facility] for further evaluation. Patient had a significant infection involving the left foot. He was seen quickly in consultation by Orthopedics and taken to the OR for I&D and debridement. The patient tolerated the procedure well. Postoperatively cultures grew MRSA. Wound VAC was placed on the area. The patient developed an episode of gout during his hospital stay. Was treated accordingly with improvement of his symptoms. He continued on vancomycin, diabetes was treated, hypertension was treated, and he ultimately was deemed appropriate for discharge to [facility] for ongoing care. Status at Discharge Functional status at discharge: uses cane/walker Overall status at discharge: patient is back to baseline Time Spent with Patient Less than 30 minutes Exam Vital Signs (past 8 hours): Oxygen Delivery Method Room Air Oxygen Flow Rate 0 Objective Labs Result Diagrams: 03/16/18 05:25 03/20/18 08:30 Discharge Plan Discharge Plan Patient Disposition: SNF Transfer to: [facility] Under care of provider: Dr. Paulino Jain [facility] Labs: Bmp q , vanco peak and trough level 03/22/2018 I certify the postop hospital nursing home care is medically necessary on a continuing basis for any conditions for which he/ she received care during this hospitalization.: Yes The receiving facility has agreed to accept transfer and provide medical treatment.: Yes Discharge Med Rec/Prescriptions Prescriptions: New sennosides [senna] 8.6 mg Tablet 17.2 mg PO BEDTIME Qty: 30 RF: 0 acetaminophen 325 mg Tablet 650 mg PO Q6HR PRN (Reason: As Needed For Fever/Mild Pain) Qty: 30 RF: 0 docusate sodium 100 mg Capsule 100 mg PO BID Qty: 30 RF: 0 Discontinued doxycycline monohydrate 100 mg capsule 100 mg PO BID RF: 0 cephalexin 500 mg capsule 500 mg PO QID RF: 0 No Action acetaminophen 500 mg Tablet 1,000 mg PO BID RF: 0 magnesium hydroxide [Milk of Magnesia] 400 mg/5 mL Suspension 30 ml PO PRN PRN (Reason: Constipation) RF: 0 bisacodyl 10 mg Suppository 10 mg [place] DAILY PRN (Reason: Constipation) RF: 0 sodium phosphates [Fleet Enema] 19-7 gram/118 mL Enema FL PRN (Reason: Constipation) RF: 0 bisacodyl 5 mg Tablet,Delayed Release (Dr/Ec) 5 mg PO PRN PRN (Reason: Constipation) RF: 0 insulin lispro 100 unit/mL Insulin Pen subcut ACHS RF: 0 Vancomycin Hcl Solution 900 mg PO DAILY RF: 0 lisinopril 20 mg Tablet 20 mg PO DAILY Qty: 30 RF: 0 atorvastatin [Lipitor] 20 mg Tablet 40 mg PO BEDTIME Qty: 60 RF: 0 oxycodone 10 mg tablet 10 mg PO Q8H PRN (Reason: Back Pain) Qty: 20 RF: 0 Follow up/Referrals: Chloé Nguyen PA-C [Primary Care Provider] - Discharge Health Status Brief summary of current health status: Alert and oriented X3. SBA with FWW. PICC line RUE (inserted 03/16). Wound vac to be placed, pressure and all other settings to be ordered by the provider at [facility] who will be managing it. Takes Oxycodone 10 mg for pain. ADA diet, thin liquids. Meds whole. Blood sugars AC/HS , today was 208 and 269. Multidrug resistant organism: MRSA Provider Discharge Instructions Diet: Carb-consistent/Diabetic Liquid consistency: Normal/Thin Food texture: Regular Activity: Per Physical therapy Skin/Wound/Dressing Care Dressing: patient will need negative pressure wound therapy while at [facility] Special Rehabilitation Services Rehab type: Physical therapy and Occupational therapy Discharge Data Primary Care Provider: Chloé Nguyen Attending Provider: Jesus Ferrell Admit Date/Time: 03/14/18 22:02 Discharges patient from system. Discharge Date/Time: 03/21/18 15:00 Quality VTE Deep Vein Thrombosis/Pulmonary Embolism Present on Admission: No
== END 2018-03-21 15:00 | DRG 982 ==
LOC: ED 22:01 → AC 22:03
PROVIDERS: Internal Medicine; Orthopaedic Surgery Foot and Ankle Surgery; Admitting Provider Internal Medicine; Emergency Provider Internal Medicine; PCP Physician Assistant; Visit Provider Internal Medicine
PROC: 0KDW0ZZ Extraction of Left Foot Muscle, Open Approach (ICD-10-PCS; principal; 2018-03-15 14:45)
DX: E11.69 Type 2 diabetes mellitus with other specified complication (principal); L97.525 Non-pressure chronic ulcer of other part of left foot with muscle involvement without evidence of necrosis; M86.8X7 Other osteomyelitis, ankle and foot; F11.20 Opioid dependence, uncomplicated; E11.621 Type 2 diabetes mellitus with foot ulcer; E11.65 Type 2 diabetes mellitus with hyperglycemia; L03.032 Cellulitis of left toe; N17.9 Acute kidney failure, unspecified; E11.40 Type 2 diabetes mellitus with diabetic neuropathy, unspecified; I10 Essential (primary) hypertension; B95.62 Methicillin resistant Staphylococcus aureus infection as the cause of diseases classified elsewhere; G89.29 Other chronic pain; M10.022 Idiopathic gout, left elbow; F17.210 Nicotine dependence, cigarettes, uncomplicated; M10.9 Gout, unspecified
CPT/HCPCS: 36415; 36569; 36592; 73630; 73720; 80048; 80053; 80061; 80202; 81003; 81015; 82565; 82962; 83036; 83605; 85025; 85610; 85651; 85730; 86140; 87040; 87070; 87075; 87077; 87102; 87116; 87147; 87186; 87205; 88304; 93005; 93922; 93926; 94760; 96361; 96365; 96367; 99282; 99284; A9579; J0696; J1170; J1642; J1650; J2250; J2704; J2765; J3010; J3370

== ENCOUNTER → 2018-03-22 14:57 | Outpatient (REF) | payer MEDICARE, SELFPAY ==
[2018-03-14 22:28] VITALS: BMI 26.8
--- NOTE | 2018-03-22 15:45 | PM.DS.1 ---
History of Present Illness Date Patient Seen: 03/21/18 Chief complaint: OSTEOMYELITIS Narrative: Patient is a 72 y/o male with a new diagnosis of diabetes mellitus, peripheral neuropathy, who reports he developed redness of the left foot on Wednesday 4 nights prior to admission. He reports pin point redness of the foot. He was evaluated at [facility] in [place] on Wednesday. They started him on metformin, doxycycline, and keflex for his cellulitis. The patient denies any pain, fever, chills, nausea, vomiting, or prior history of cellulitis. The patient reports he developed increased redness, blistering of the foot/toe the following day. He went back to [facility] where they recommended hospitalization for treatment. The patient declined as he wanted to be hospitalized closer to home in [place]. He presented to the Emergency Department last night where foot xrays confirmed what appears to be osteomyelitis. The patient reports no factors that make his symptoms better or worse. He was newly diagnosed with diabetes. He has chronic back pain with associated numbness which he attributed his foot numbness too. The patient is admitted for further evaluation. Discharge Providers Primary care physician: Chloé Nguyen PA-C Discharge provider: Sujatha Obrien MD Discharge Date: 03/21/18 Summary Discharge Diagnosis: Osteomyelitis Abscess/Left foot Ulcer, S/P I &D Diabetic foot ulcer Hyperlipidemia MRSA Wound infection Gout Hypertension Type 2 diabetes Hospital Course: Patient was admitted to the hospital for a diabetic foot infection. His MRI confirmed an abscess/osteomyelitis. He was taken to the operating room for debridement and definitive surgical treatment. The patient had wound cultures that were positive for MRSA. THe patient had a PICC line placed for 6 weeks of antibiotics. Wound care recommended a wound vac in addition to joint terminal attack controller antibiotics. The patient will have the wound vac placed at [facility]. Patient recovered well without complications. He was discharged in satisfatory condition Status at Discharge Functional status at discharge: uses cane/walker Overall status at discharge: patient is not back to baseline Time Spent with Patient Less than 30 minutes Exam Narrative Exam Narrative: Pleasant male in NAD Lungs Clear to auscultation CV: RRR nl Sl S2 Abd: Soft non tender non distended Ext: Left foot with dressing in place Left elbow with gout Objective Labs Labs: Laboratory Results - last 24 hr 03/22/18 13:30 Vancomycin Trough 20.9 H* Discharge Plan Discharge Med Rec/Prescriptions Prescriptions: No Action metformin 500 mg tablet 500 mg PO BID RF: 0 oxycodone 10 mg tablet 10 mg PO QID PRN (Reason: Back Pain) RF: 0 sennosides [senna] 8.6 mg Tablet 17.2 mg PO BEDTIME Qty: 30 RF: 0 acetaminophen 325 mg Tablet 650 mg PO Q6HR PRN (Reason: As Needed For Fever/Mild Pain) Qty: 30 RF: 0 atorvastatin [Lipitor] 20 mg Tablet 20 mg PO BEDTIME Qty: 30 RF: 0 indomethacin 25 mg Capsule 75 mg PO BIDWM Qty: 20 RF: 0 docusate sodium 100 mg Capsule 100 mg PO BID Qty: 30 RF: 0 vancomycin in 0.9 % sodium chl 500 mg/100 mL piggyback 500 mg IV Q12H 42 Days Qty: 8400 RF: 0 oxycodone 10 mg Tablet 10 mg PO Q4HR PRN (Reason: Pain, Severe (7-10)) Qty: 30 RF: 0 Discharge Data Primary Care Provider: Chloé Nguyen Attending Provider: Paulino Jain
[2018-03-22 15:50] LABS: Vancomycin Trough 20.9 ug/mL (10-20)
== END ==
LOC: LAB 14:57
PROVIDERS: PCP Physician Assistant; Visit Provider Hospitalist
DX: M86.9 Osteomyelitis, unspecified (principal)
CPT/HCPCS: 80202

== ENCOUNTER → 2018-03-23 14:05 | Outpatient (CLI) | payer MEDICARE, SELFPAY ==
[2018-03-14 22:28] VITALS: BMI 26.8
== END ==
PROVIDERS: PCP Physician Assistant; Visit Provider Family Medicine
DX: E11.621 Type 2 diabetes mellitus with foot ulcer (principal); L97.522 Non-pressure chronic ulcer of other part of left foot with fat layer exposed; L02.612 Cutaneous abscess of left foot; A49.02 Methicillin resistant Staphylococcus aureus infection, unspecified site
CPT/HCPCS: 11042; 99204; 99212

== ENCOUNTER 2018-03-25 11:47 | Inpatient (IN) | payer MEDICARE, SELFPAY ==
[2018-03-25] VITALS (7 sets, daily range): BP systolic 146–186; BP diastolic 74–111; PULSE 82–97; RESP 12–18; TEMP 36.8–37.4; O2SAT 97–100; BMI 27.7
--- NOTE | 2018-03-25 | DI.US.S_ITS ---
PROCEDURE: US CAROTID DOPPLER BI INDICATIONS: TIA TECHNIQUE: Color and pulse Doppler interrogation was performed of both carotid systems, with image documentation and velocity measurements. COMPARISON: None. FINDINGS: Stenosis calculations are based on SRU (Society of Radiologists in Ultrasound) criteria. Right side: Brachial blood pressure: 186/111 mm Hg. Common carotid artery peak systolic velocity: 64 cm/sec. Internal carotid artery peak systolic velocity: 100 cm/sec. Internal carotid artery end diastolic velocity: 30 cm/sec. External carotid artery peak systolic velocity: 84 cm/sec. ICA/CCA peak systolic ratio: 1.55. Mills scale imaging description: Atheromatous plaque is present at the carotid bifurcation. Percent internal carotid artery stenosis: Less than 50%. Vertebral artery: Flow direction is antegrade. Left side: Brachial blood pressure: 178/91 mm Hg. Common carotid artery peak systolic velocity: 72 cm/sec. Internal carotid artery peak systolic velocity: 84 cm/sec. Internal carotid artery end diastolic velocity: 25 cm/sec. External carotid artery peak systolic velocity: 73 cm/sec. ICA/CCA peak systolic ratio: 1.16. Mills scale imaging description: Mild atheromatous plaque is present at the carotid bifurcation Percent internal carotid artery stenosis: Less than 50%. Vertebral artery: Flow direction is antegrade. IMPRESSION: 1. Less than 50% stenosis of the bilateral internal carotid arteries. 2. Hypertension. Dictated by: Marly De León M.D. on 03/25/2018 at 16:45 Approved by: Marly De León M.D. on 03/25/2018 at 16:47
--- NOTE | 2018-03-25 12:08 | ED_ITS ---
HPI - Neuro Symptoms/Deficit General Chief Complaint: Neuro Symptoms/Deficit Stated Complaint: CVA Time Seen by Provider: 03/25/18 12:07 Source: patient Mode of arrival: EMS Limitations: no limitations History of Present Illness HPI Narrative: patient is a 72-year-old male sent over from the [facility] facility where he is therefore IV antibiotics secondary to a left lower extremity cellulitis. Patient is a insulin-dependent diabetic. He was sent over today because this morning he was noticed that he was having drooping of the right side of his face and slurring words and confusion. It appears that this episode this morning lasted less than 10 min. The patient was little confused about whether not he remember the symptoms. He did state that last evening he had very similar symptoms that lasted approximately 20 min. He did not tell anybody about the symptoms. He was not evaluated for them. He is not on anticoagulation. Has never anything like this in the past. At the time my evaluation reported no symptoms. On Anticoagulants: No Related Data Home Medications Medication Instructions Recorded Confirmed metformin 500 mg PO BID 03/14/18 03/25/18 oxycodone 10 mg PO QID PRN 03/14/18 03/14/18 acetaminophen 1,000 mg PO BID 03/25/18 03/25/18 Previous Rx's Medication Instructions Recorded acetaminophen 650 mg PO Q6HR PRN #30 tab 03/21/18 atorvastatin [Lipitor] 20 mg PO BEDTIME #30 tab 03/21/18 docusate sodium 100 mg PO BID #30 cap 03/21/18 indomethacin 75 mg PO BIDWM #20 cap 03/21/18 oxycodone 10 mg PO Q4HR PRN #30 tab 03/21/18 sennosides [senna] 17.2 mg PO BEDTIME #30 tab 03/21/18 vancomycin in 0.9 % sodium chl 500 mg IV Q12H 42 Days #8400 ml 03/21/18 Allergies Allergy/AdvReac Type Severity Reaction Status Date / Time dexamethasone Allergy Verified 03/14/18 18:31 quinine Allergy Verified 03/14/18 18:31 Sulfa (Sulfonamide Allergy Verified 03/14/18 18:31 Antibiotics) Review of Systems Constitutional Denies fever(s) and Denies headache(s) Eyes Denies blurry vision and Denies diplopia ENT Ears, Nose, Mouth, and Throat: Denies vertigo, Denies dizziness, Denies facial pain, Denies headache(s), Denies lip swelling, Denies sinus pressure, Denies sore throat and Denies throat swelling Comments: see HPI for further presenting symptoms Cardiovascular Denies chest pain, Denies edema, Denies irregular heart rhythm, Denies leg edema , Denies palpitations and Denies dyspnea Respiratory Denies cough and Denies dyspnea Gastrointestinal Gastrointestinal: Denies abdominal pain, Denies nausea and Denies vomiting Genitourinary Denies dysuria Musculoskeletal Denies myalgias and Denies arthralgias Comments: left ankle in a boot. Left lower extremity cellulitis Integumentary/Breasts Comments: left lower extremity cellulitis which is not new Neurologic Denies vertigo, Denies dizziness and Denies headache(s) Comments: currently has no symptoms. See HPI for presenting symptoms Endocrine Denies palpitations Hematologic/Lymphatic Denies easy bleeding and Denies easy bruising Allergic/Immunologic Denies urticaria, Denies lip swelling and Denies throat swelling PFSH Medical History MRSA (methicillin resistant Staphylococcus aureus) (Acute) TIA (transient ischemic attack) (Acute) CKD (chronic kidney disease) stage 3, GFR 30-59 ml/min (Chronic) Gout (Chronic) HLD (hyperlipidemia) (Chronic) Hx of rheumatic fever (Chronic) Osteomyelitis (Chronic) Diabetes (Acute) HTN (hypertension) (Chronic) Neuropathy (Chronic) Spinal stenosis (Chronic) Surgical History History of tonsillectomy (Resolved) Social History household members: friend(s) Smoking Status: Never smoker alcohol intake: never Exam Initial Vital Signs Initial Vital Signs: Vital Signs Temperature 99.4 F 03/25/18 12:00 Pulse Rate 88 03/25/18 12:00 Respiratory Rate 12 03/25/18 12:00 Blood Pressure 180/92 H 03/25/18 12:00 Pulse Oximetry 99 03/25/18 12:00 Const General: cooperative, comfortable, well developed, well groomed and No acute distress Orientation: alert, awake, oriented x3 and not confused Limitations: mental status not altered HENMT Head: normal to inspection and normocephalic Face and sinus: normal facial exam Mouth: oral mucosae normal Eyes Pupils: PERRL EOM: EOM intact bilaterally Chest Chest: normal inspection of the chest and No crepitus Resp Effort & Inspection: normal respiratory effort Auscultation: clear to auscultation bilaterally Cardio Rate: regular rate Rhythm: regular rhythm Pulses: radial pulses present GI Inspection: non-distended Palpation: soft, No firm and No tender Skin Other: lower extremity redness from mid calf to the top of the bandage on the left foot. The bandage was not removed. Neuro General: alert, awake and oriented x3 Cranial Nerves: CN's II-XI intact bilaterally Speech: speech normal Sensory Exam: no sensory deficits noted Extrem General: normal to inspection and edema Psych Appearance: grossly normal and well kempt Scores ABCD2 Age >= 60 years: yes Initial BP. Either SBP >= 140 or DBP >= 90.: yes Clinical features of the TIA: speech disturbance without weakness Duration of symptoms: < 10 minutes History of diabetes: yes ABCD2 Score: 4 GCS Nnamdi coma scale eye opening: Spontaneous [place] coma scale verbal response: Orientated [place] coma scale motor response: Obey commands [place] coma scale total score: 15 Course Orders Ordered: ED Orders 03/25/18 11:49 CT head/brain wo con Stat 03/25/18 12:08 EKG-12 Lead Stat 03/25/18 12:35 Complete Blood Count AUTO DIFF Stat Comprehensive Metabolic Panel Stat Lipase Stat Partial Thromboplastin Time Stat Prothrombin Time INR Stat TSH [Thyroid Stimulating Hormone] Routine 03/25/18 16:28 CT angio head and neck Stat 03/25/18 16:40 Consult to Package Wrapper Routine 03/26/18 05:00 Basic Metabolic Panel Routine Complete Blood Count AUTO DIFF Routine 03/26/18 14:30 Vancomycin Trough Urgent Aspirin (Aspirin Ec) 81 mg PO DAILY FAVIAN Atorvastatin Calcium (Lipitor) 40 mg PO BEDTIME [facility] Dextrose (D50w) 25 gm IV PRN PRN; Protocol PRN Reason: Hypoglycemia Heparin Sodium (Porcine) (Heparin) 5,000 unit SUBCUT BID [facility] Sodium Chloride (Normal Saline 0.9%) 1,000 mls @ 125 mls/hr IV CONT FAVIAN Last Admin: 03/25/18 14:10 Dose: 125 mls/hr Vancomycin HCl 500 mg/ Sodium (Chloride) 100 mls @ 100 mls/hr IV Q12H FAVIAN Last Admin: 03/25/18 15:31 Dose: 100 mls/hr Insulin Aspart (Novolog Flexpen) 0 unit SUBCUT ACHS FAVIAN; Protocol Last Admin: 03/25/18 17:45 Dose: 3 unit Lisinopril (Zestril) 20 mg PO DAILY FAVIAN Oxycodone HCl (Percolone) 10 mg PO Q6HR PRN PRN Reason: Pain, Severe (7-10) Last Admin: 03/25/18 17:03 Dose: 10 mg Discontinued Medications Lorazepam (Ativan) 0.5 mg IV NOW ONE Stop: 03/25/18 16:55 Oxycodone/Acetaminophen (Percocet 5/325) 1 tab PO NOW ONE Stop: 03/25/18 13:49 Last Admin: 03/25/18 14:04 Dose: 1 tab Vital Signs - 8 hr 03/25/18 12:00 03/25/18 13:32 03/25/18 16:00 Temperature 99.4 F 98.3 F Pulse Rate 88 97 H 85 Respiratory Rate 12 12 17 Blood Pressure 180/92 H 186/111 H Blood Pressure [Left Arm] 153/74 H Pulse Oximetry 99 100 98 03/25/18 16:57 Temperature Pulse Rate Respiratory Rate Blood Pressure Blood Pressure [Left Arm] Pulse Oximetry 98 MDM - Neuro Symptoms/Deficit Lab Data Attestation: I reviewed the patient's lab results. Result diagrams: 03/25/18 12:35 03/25/18 12:35 Lab Results 03/25/18 03/25/18 03/25/18 Range/Units 12:35 12:35 12:35 WBC 11.0 (4.5-11.0) X10^3/uL RBC 3.86 L (4.5-5.9) X10^6/uL Hgb 11.2 L (13.5-17.5) g/dL Hct 34.0 L (41-53) % MCV 88.2 (80-100) fL MCH 29.1 (26-34) PG MCHC 33.0 (30-36) % RDW 13.9 (11.6-14.8) % Plt Count 608 H (150-400) X10^3/uL Neut % (Auto) Not Reportable Lymph % (Auto) Not Reportable [place] % (Auto) Not Reportable Eos % (Auto) Not Reportable Baso % (Auto) Not Reportable Total Counted 100 Seg Neutrophils % 79.0 H (38-70) % Band Neutrophils % 2.0 L (3-7) % Lymphocytes % (Manual) 6.0 L (25-45) % Atypical Lymphs % 2.0 H ( - 0) % Monocytes % (Manual) 8.0 (2-11) % Eosinophils % (Manual) 3.0 (2-4) % Neutrophils # (Manual) 8910 H (7309-1005) /uL RBC Morphology Normal morphology PT 14.0 H (10.1-12.7) SECONDS INR 1.3 (0.9-1.3) APTT 32 D (26.4-36.2) SECONDS Sodium 140 (137-145) mmol/L Potassium 5.1 (3.4-5.1) mmol/L Chloride 103 (98-107) mmol/L Carbon Dioxide 23 (22-32) mmol/L BUN 35 H (9-20) mg/dL Creatinine 1.70 H (0.66-1.25) mg/dL Estimated GFR 39.9 L (>60) mL/min BUN/Creatinine Ratio 20.6 (6-22) Glucose 158 H (80-110) mg/dL Calcium 9.3 (8.4-10.2) mg/dL Total Bilirubin 0.2 (0.2-1.3) mg/dL AST 25 (17-59) IU/L ALT 27 (21-72) IU/L Alkaline Phosphatase 119 (38-126) U/L Total Protein 7.6 (6.3-8.2) g/dL Albumin 3.8 (3.5-5.0) g/dL Globulin 3.8 (1.7-4.1) g/dL Albumin/Globulin Ratio 1.0 (1.0-2.8) Lipase 194 (23-300) U/L TSH (0.47-4.68) uIU/mL 03/25/18 Range/Units 12:35 WBC (4.5-11.0) X10^3/uL RBC (4.5-5.9) X10^6/uL Hgb (13.5-17.5) g/dL Hct (41-53) % MCV (80-100) fL MCH (26-34) PG MCHC (30-36) % RDW (11.6-14.8) % Plt Count (150-400) X10^3/uL Neut % (Auto) Lymph % (Auto) [place] % (Auto) Eos % (Auto) Baso % (Auto) Total Counted Seg Neutrophils % (38-70) % Band Neutrophils % (3-7) % Lymphocytes % (Manual) (25-45) % Atypical Lymphs % ( - 0) % Monocytes % (Manual) (2-11) % Eosinophils % (Manual) (2-4) % Neutrophils # (Manual) (1828-3601) /uL RBC Morphology PT (10.1-12.7) SECONDS INR (0.9-1.3) APTT (26.4-36.2) SECONDS Sodium (137-145) mmol/L Potassium (3.4-5.1) mmol/L Chloride (98-107) mmol/L Carbon Dioxide (22-32) mmol/L BUN (9-20) mg/dL Creatinine (0.66-1.25) mg/dL Estimated GFR (>60) mL/min BUN/Creatinine Ratio (6-22) Glucose (80-110) mg/dL Calcium (8.4-10.2) mg/dL Total Bilirubin (0.2-1.3) mg/dL AST (17-59) IU/L ALT (21-72) IU/L Alkaline Phosphatase (38-126) U/L Total Protein (6.3-8.2) g/dL Albumin (3.5-5.0) g/dL Globulin (1.7-4.1) g/dL Albumin/Globulin Ratio (1.0-2.8) Lipase (23-300) U/L TSH 0.99 (0.47-4.68) uIU/mL Point of Care Testing Glucose POC [address] scan - head: Radiologist's impression: No acute intracranial findings. Findings likely associated chronic microvascular ischemic change ECG Data Attestation: I personally reviewed and interpreted this ECG as follows: Prior ECG tracings: not available for review Interpretation: sinus rhythm ventricular rate 82 Normal axis normal intervals Normal QRS No ST T wave changes MDM Narrative Medical decision making narrative: the patient asymptomatic during my evaluation here in the emergency department. He does have a PICC line in the right upper extremity. He states that the cellulitis in his left lower extremity is actually improving. Symptoms this morning and last evening concerning for TIA. Discussed the case with will admit for continued observation treatment of presumed TIA. Discussed admission with the patient. He expressed understanding and agreement this plan. Discharge Plan Departure Patient Disposition: Admitted as Observation Clinical Impression: TIA (transient ischemic attack) Discharge Date/Time: 03/25/18 16:13 Interventions: ED Discharge Assessment Last Done: 03/25/18 16:20 Admit Date/Time: 03/25/18 14:16 Admit Provider: Chikis Hayward
[2018-03-25 12:50] LABS: Hemoglobin 11.2 g/dL (13.5-17.5); Mean Corpuscular Hemoglobin 29.1 PG (26-34); Mean Corpuscular Volume 88.2 fL (80-100); Platelet Count 608 X10^3/uL (150-400); Red Blood Cell Count 3.86 X10^6/uL (4.5-5.9); Red Cell Distribution Width 13.9 % (11.6-14.8)
[2018-03-25 12:52] LABS: Add Manual Diff / Slide Review YES
[2018-03-25 12:55] LABS: INR 1.3 (0.9-1.3)
[2018-03-25 12:57] LABS: PTT Partial Thromboplastin Tim 32 SECONDS (26.4-36.2)
[2018-03-25 13:01] LABS: Alanine Aminotransferase 27 IU/L (21-72); Albumin 3.8 g/dL (3.5-5.0); Alkaline Phosphatase 119 U/L (38-126); Aspartate Aminotransferase 25 IU/L (17-59); BUN Creatinine Ratio 20.6 (6-22); Bilirubin Total 0.2 mg/dL (0.2-1.3); Blood Urea Nitrogen 35 mg/dL (9-20); Calcium 9.3 mg/dL (8.4-10.2); Carbon Dioxide 23 mmol/L (22-32); Chloride 103 mmol/L (98-107); Estimated Glomerular Filt Rate 39.9 mL/min (>60); Globulin 3.8 g/dL (1.7-4.1); Glucose 158 mg/dL (80-110); HEMOLYSIS < 15 (0-50); Lipase 194 U/L (23-300); Potassium 5.1 mmol/L (3.4-5.1); Sodium 140 mmol/L (137-145); Total Protein 7.6 g/dL (6.3-8.2)
[2018-03-25 13:17] LABS: Neutrophils Absolute Manual 8910 /uL (3000-5900); Total Cells Counted 100
[2018-03-25 13:18] LABS: RBC Morphology Normal Morphology
[2018-03-25] MEDS: OXYCODONE/ACETAMINOPHEN 5/325 TABLET 1 TAB PO (14:04)
[2018-03-25] MEDS: SODIUM CHLORIDE 0.9% 1,000 ML 125 ML IV (14:10)
--- NOTE | 2018-03-25 14:55 | P.HP_ITS ---
History of Present Illness Date Patient Seen: 03/25/18 Time Patient Seen: 14:53 Chief complaint: CVA Narrative: 72-year-old male with past medical history of type 2 diabetes mellitus, gout, hypertension, hyperlipidemia, CKD stage IIIB, rheumatic fever as a child, spinal stenosis, and recent diagnosis of osteomyelitis status post incision and drainage and currently on IV antibiotics presented to ED from [facility] with a transient episode of slurred speech. As per patient , [facility], during which time he had an episode of slurred speech, to which he was not able to bring the words out that he wanted. Patient denies any confusion or memory loss at that time. Denies any loss of consciousness, seizure-like activity, bowel bladder loss control, or tongue biting. Patient denies any dizziness or blurry vision. Denies any chest pain or shortness of breath. Denies any nausea or vomiting, diarrhea or constipation, or abdominal pain. Patient does not have any symptoms. Patient states that he had a similar episode last night, with duration of 20 min, during which time no help was sought. Similarly, during the last episode patient did not experience confusion or memory loss, merely slurred speech. Patient denies any weakness. In ED, patient is back to baseline with the slurred speech episode resolved. Patient's vital signs were stable with exception of blood pressure which was slightly elevated at 154/81. Lab work revealed WBC 1.0, hematocrit 34.0, hemoglobin 11.2, platelets 0 8. Sodium 140, potassium 5.1, chloride 103, bicarb 23, BUN 35, and creatinine 1.7. Blood glucose was 209. LFTs were normal. EKG showed normal sinus rhythm with possible old inferior infarct. CT head showed no acute intracranial findings. Patient was admitted for further TIA workup. Patient History Medical History TIA (transient ischemic attack) (Acute) CKD (chronic kidney disease) stage 3, GFR 30-59 ml/min (Chronic) Gout (Chronic) HLD (hyperlipidemia) (Chronic) Hx of rheumatic fever (Chronic) Osteomyelitis (Chronic) Diabetes (Acute) HTN (hypertension) (Chronic) Neuropathy (Chronic) Spinal stenosis (Chronic) Surgical History History of tonsillectomy (Resolved) Family & Social History Family History: Reviewed 03/15/18 by Anitha Spencer MD Social History: household members friend(s) Tobacco & Substance use: Smoking Status Never smoker alcohol intake never Substance Use Type does not use Meds Home Medications Medication Instructions Recorded Confirmed Type metformin 500 mg PO BID 03/14/18 03/14/18 History oxycodone 10 mg PO QID PRN 03/14/18 03/14/18 History acetaminophen 650 mg PO Q6HR PRN #30 tab 03/21/18 Rx atorvastatin [Lipitor] 20 mg PO BEDTIME #30 tab 03/21/18 Rx docusate sodium 100 mg PO BID #30 cap 03/21/18 Rx indomethacin 75 mg PO BIDWM #20 cap 03/21/18 Rx oxycodone 10 mg PO Q4HR PRN #30 tab 03/21/18 Rx sennosides [senna] 17.2 mg PO BEDTIME #30 tab 03/21/18 Rx vancomycin in 0.9 % sodium chl 500 mg IV Q12H 42 Days #8400 ml 03/21/18 Rx Allergies Allergy/AdvReac Type Severity Reaction Status Date / Time dexamethasone Allergy Verified 03/14/18 18:31 quinine Allergy Verified 03/14/18 18:31 Sulfa (Sulfonamide Allergy Verified 03/14/18 18:31 Antibiotics) Review of Systems Review of Systems All systems reviewed & are unremarkable except as noted in HPI and below Exam Vital Signs (past 8 hours): - 03/25/18 12:00 03/25/18 13:32 Temperature 99.4 F Pulse Rate 88 97 H Respiratory Rate 12 12 Blood Pressure 180/92 H Blood Pressure [Left Arm] 153/74 H Pulse Oximetry 99 100 Oxygen Delivery Method Room Air Narrative Exam Narrative: General: No acute distress, AAO x3 HEENT: PERRLA bilaterally EOMI bilaterally. Speech is clear. Moist mucous membranes Neck: Supple, no LAD or JVD CV: Regular rate and rhythm, systolic murmur appreciated. 2+ pulses present Respiratory: Clear to auscultation bilaterally, no wheezing or crackles GI: Positive bowel sounds in all 4 quadrants, nontender, no organomegaly Musculoskeletal: Normal range of motion in all 4 extremities Extremities: 1+ pitting edema in lower extremities bilaterally up to knees. Left ft is in dressings with an elevating boot on Neuro: No focal deficits, cranial nerves 2-12 are intact. Sensation intact. Psych: Mood is appropriate Skin: No bruising or lesions Objective Labs Result Diagrams: 03/25/18 12:35 03/25/18 12:35 Labs: Laboratory Results - last 24 hr 03/25/18 03/25/18 03/25/18 12:35 12:35 12:35 WBC 11.0 RBC 3.86 L Hgb 11.2 L Hct 34.0 L MCV 88.2 MCH 29.1 MCHC 33.0 RDW 13.9 Plt Count 608 H Neut % (Auto) Not Reportable Lymph % (Auto) Not Reportable [place] % (Auto) Not Reportable Eos % (Auto) Not Reportable Baso % (Auto) Not Reportable Total Counted 100 Seg Neutrophils % 79.0 H Band Neutrophils % 2.0 L Lymphocytes % (Manual) 6.0 L Atypical Lymphs % 2.0 H Monocytes % (Manual) 8.0 Eosinophils % (Manual) 3.0 Neutrophils # (Manual) 8910 H RBC Morphology Normal morphology PT 14.0 H INR 1.3 APTT 32 D Sodium 140 Potassium 5.1 Chloride 103 Carbon Dioxide 23 BUN 35 H Creatinine 1.70 H Estimated GFR 39.9 L BUN/Creatinine Ratio 20.6 Glucose 158 H Calcium 9.3 Total Bilirubin 0.2 AST 25 ALT 27 Alkaline Phosphatase 119 Total Protein 7.6 Albumin 3.8 Globulin 3.8 Albumin/Globulin Ratio 1.0 Lipase 194 Assessment & Plan Plan: Assessment/Plan Narrative: 1. Slurred speech -likely due to TIA, now resolved -EKG showed normal sinus rhythm with possible old inferior MA -CT head showed no acute intracranial process -patient's lab reviewed: Hemoglobin A1c was 10.3 on 03/15/2018, lipid panel revealed triglycerides 185, cholesterol 165, LDL 101, HDL 27 also on 03/15/2018 -will get TSH levels, echo, and carotid duplex -will place patient on telemetry for observation -patient states he has not received aspirin since he was last admitted here to the hospital 2 weeks ago.... Will resume aspirin 81 mg p.o. daily -will also increase patient's atorvastatin to 40 mg q.h.s., as patient's lipid panel showed elevated levels of LDL and low levels of HDL -frequent neuro checks 2. Diabetes mellitus type 2 -patient was on metformin up until 2 weeks ago admission to [facility] -blood glucose on admission 158 -hemoglobin A1c on 03/15/2018 was 10.3 -will start patient on lispro sliding scale and readjust as per patient's need -frequent Accu-Cheks, hypoglycemia protocol 3. Osteomyelitis left foot -status post incision and drainage on 03/15/2018 -wound cultures grew MRSA, MRI showed osteomyelitis -patient currently has PICC line in place and is getting vancomycin 500 mg q.12 hours for total duration of 6 weeks -continue vancomycin as scheduled 4. CKD stage IIIB -compared to previous admissions, patient is at baseline -BUN is 35, creatinine is 1.7 -since it is a chronic kidney disease, will resume patient's lisinopril for blood pressure control -will discontinue metformin and indomethacin -avoid nephrotoxin and monitor renal function 5. Gout -patient used to take indomethacin -will stop indomethacin in light of chronic kidney disease 6. Hypertension -blood pressure is slightly elevated on admission, 154/81 -patient states he was on lisinopril up until last admission and has not received it since -will resume patient's lisinopril 20 mg p.o. daily for optimal blood pressure control, especially given the presentation of TIA 7. Spinal stenosis -resume oxycodone 10 mg p.o. Q 6 hr as needed 8. Thrombocytosis -possibly reactive -continue to monitor Patient wishes to be full code Dispo: Patient is here for further TIA workup. Will get echo and carotid duplex and possible discharge tomorrow 45 min spent evaluating and managing patient.
[2018-03-25] MEDS: VANCOMYCIN 500 MG in SODIUM CHLORIDE 0.9% 100 ML IV (15:31)
--- NOTE | 2018-03-25 16:18 | PC.NURSE ---
Upon transportation to [facility] for admission patient started having slurred speech, difficulty speaking and right sided facial droop starting at 1559. No other focal deficits appreciated. Bedside neuro exam completed with David TRONCOSO. Patient able to scoot himself over to bed. Katelyn from [facility] at bedside.
--- NOTE | 2018-03-25 16:28 | DI.CT.S_ITS ---
PROCEDURE: CT ANGIO HEAD AND NECK INDICATIONS: slurred speech w/ right side facial weakness. TECHNIQUE: Pre-contrast 4.5 mm thick sections acquired from the foramen magnum to the vertex. After the administration of intravenous contrast, 1 mm thick sections acquired from the aortic arch through the [place] of [place]. Post-contrast 4.5 mm thick sections then re-acquired from the foramen magnum to the vertex. 3-dimensional cjsojze-kisudoecf-dszgjhwnfe (MIP) and/or volume rendering reformats were acquired of the central intracranial vasculature and neck separately. COMPARISON: [facility], CT, CT HEAD/BRAIN WO CON, 03/25/2018, 11:41. [facility], US, US CAROTID DOPPLER BI, 03/25/2018, 16:14. FINDINGS: Image quality: Excellent. BRAIN: CSF spaces: Ventricles are normal in size and shape. Basal cisterns are patent. No extra-axial fluid collections. Brain: No midline shift. No intracranial bleeds or masses. [place]-white matter interface appears intact. Skull and face: Calvarium and facial bones appear intact, without suspicious lesions. Orbits appear normal. Sinuses: Sinuses and mastoids are clear. HEAD CT ANGIOGRAPHY: Anterior circulation: Intracranial internal carotid arteries are normal in size and flow. The flow within the paired anterior cerebral arteries is normal and symmetric. The flow within the middle cerebral arteries is normal and symmetric. The anterior communicating artery is seen. No aneurysms are seen. Posterior circulation: Visualized portions of the vertebral arteries demonstrate normal caliber, and join to form a normal appearing basilar artery. Flow within the posterior cerebral arteries is normal and symmetric. No aneurysms are seen. NECK CT ANGIOGRAPHY: Carotid system: The great vessels demonstrate a conventional anatomy as they arise from the aortic arch. The origins of the common carotid arteries appear patent. The common carotid arteries demonstrate normal caliber and courses. There is roughly 60% right internal carotid artery origin stenosis. Minimal left internal carotid artery origin stenosis is present. Posterior circulation: The origins of the vertebral arteries both appear widely patent. The more superior extracranial portions of both vertebral arteries also demonstrate normal courses and calibers. They join to form a normal appearing basilar artery. Soft tissues: Visualized neck soft tissues demonstrate no suspicious abnormalities. Bones: No suspicious bony lesions. Visualized cervical spine appears normally aligned. IMPRESSION: 1. No acute process. 2. 60% right internal carotid artery origin stenosis. Minimal left internal carotid artery stenosis. 3. Patent bilateral vertebral arteries. Any quantitative measurements of stenosis were performed using NASCET criteria. Dictated by: Salomón Chinchilla M.D. on 03/25/2018 at 18:48 Approved by: Salomón Chinchilla M.D. on 03/25/2018 at 18:51
[2018-03-25 16:32] LABS: Thyroid Stimulating Hormone 0.99 uIU/mL (0.47-4.68)
[2018-03-25] MEDS: OXYCODONE IR 10 MG TABLET PO ×2 (17:03→22:58)
--- NOTE | 2018-03-25 17:04 | PC.NURSE ---
Pt to acute care from er, transferred via stretcher. Alert/oriented. Trouble finding words/speech slightly slurred. Denies pain. Left foot wrapped and has black supportive boot present. Declines need for anything to be locked up in safe. Friend Yefri present at bedside during admission. Oriented to room/call light. [employer] contacted to get updated med list/medical cost consultant times of last doses. Will update when provided.
[2018-03-25] MEDS: INSULIN ASPART 100 UNIT/ML INSULN PEN SUBCUT (17:45)
--- NOTE | 2018-03-25 19:53 | PC.NURSE ---
Patient is A&O x3, upon arrival patient had another episode in elevator w/ nurse of expressive aphasia, difficulty finding words and witnessed decrease in fine motor skills. Patient remained A&O x3 during episode and was witnessed to get increasingly frustrated as he was unable to get his words out. NIH screen done, it was noted that patient did have RT side facial droop in mouth, but was able to equally raise eye brows and move tongue around. No drift in any ext. or strength deficits noted. Episode was recorded to start at 1559 provider was notified around 1627 of episode and sxs still present. STAT CTA was ordered and obtained. Results were called into provided at 1938. Provider took no other action w/ results. Patient has yet to have any more sxs. Remains axo x3, pleasant and cooperative. Call light w/in reach, bed in low pos.
[2018-03-25] MEDS: ATORVASTATIN 20 MG TABLET 40 MG PO (21:33)
[2018-03-25] MEDS: HEPARIN 5,000 UNIT/ML VIAL 5000 UNIT SUBCUT (21:33)
[2018-03-26] VITALS (19 sets, daily range): BP systolic 115–185; BP diastolic 60–110; PULSE 76–117; RESP 16–20; TEMP 36.1–36.8; O2SAT 95–98
--- NOTE | 2018-03-26 | DI.ECHO.S_ITS ---
[facility]---------+ [facility] +---------+ : : [address] : : : : [id number] : : : : Phone: [phone] Echocardiogram Report + + :Name: LALO THOMAS Study Date: 03/26/2018 Height: 66 in : :[facility] Exam Location: IS Weight: 160 lb : : Gender: Male BSA: 1.8 m2 : :: 1945 Age: 72 yrs BP: 153/84 mmHg: :Reason For Study: TIA : : Performed By: Doug Smith : :Referring: VANESSA BROWN : + + Interpretation Summary Normal sinus rhythm. Normal LV size; mild concentric LVH. Normal wall motion and LV systolic function. EF is 60-65%. Mild LA enlargement; otherwise normal chamber sizes. Aortic sclerosis without significant stenosis. Otherwise no significant valvular abnormalities. No source of embolism identified. Procedure: A two-dimensional transthoracic echocardiogram with color flow and Doppler was performed. The study quality was technically adequate. There is no prior echocardiogram noted for this patient. The patient was in normal sinus rhythm during the exam. Left Ventricle: The left ventricle is normal in size. Left ventricular wall thickness is mildly increased. The LVOT velocity is 1.4 m/s. The left ventricular outflow velocity with valsalva is 1.2 m/s. The ejection fraction is estimated to be 60-65%. There are no focal wall motion abnormalities. Right Ventricle: The right ventricle is normal in size and function. Atria: The left atrium is mildly dilated. Right atrial size is normal. The interatrial septum is intact with no evidence for an atrial septal defect. Mitral Valve: There is a flat closure plane of the the mitral valve leaflets. The mitral valve leaflets are slightly calcified. There is trace mitral regurgitation. Aortic Valve: The aortic valve is trileaflet. The aortic valve is mildly calcified. There is no hemodynamically significant valvular aortic stenosis. There is trace aortic regurgitation. Tricuspid Valve: The tricuspid valve is normal in structure and function. No tricuspid regurgitation. Pulmonary artery pressures cannot be estimated because of the lack of a measurable TR jet velocity. Pulmonic Valve: The pulmonic valve is normal in structure and function. There is no pulmonic valvular regurgitation. Great Vessels: The aortic root is normal size. The dimensions of the ascending aorta are normal. The pulmonary artery is normal size. The IVC is of normal diameter and collapses greater than 50% with a sniff. This suggests a low right atrial pressure of 3 mm Hg. Pericardium/ Pleura There is no pericardial effusion. There is no pleural effusion. MMode/2D Measurements & Calculations LVIDd: 4.3 cm LVOT diam: 2.0 cm LVIDs: 2.0 cm Ao root diam: 3.4 cm FS: 54.1 % Aortic Jxn: 2.8 cm EPSS: 0.21 cm asc Aorta Diam: 3.4 cm IVSd: 1.1 cm LVPWd: 1.2 cm LV lewis. diameter/BSA (cm/m^2): 2.4 LV sys. diameter/BSA (cm/m^2): 1.1 LA dimension: 4.0 cm RA long axis: 4.2 cm LA A2 area: 19.1 cm2 RA area: 15.1 cm2 LA A4 area: 21.6 cm2 RA vol: 46.1 ml LA length (vol): 5.4 cm RA : 25.3 ml/m2 LA vol: 65.4 ml IVC diam: 1.8 cm LA vol index: 35.9 ml/m2 Doppler Measurements & Calculations Ao V2 max: 158.3 cm/sec LVOT Max Dileep: 143.8 cm/sec Ao V2 mean: 115.2 cm/sec LV V1 max P.3 mmHg Ao max P.0 mmHg LV V1 VTI: 33.6 cm Ao mean P.0 mmHg MARCIE(I,D): 3.1 cm2 Ao V2 VTI: 33.2 cm MARCIE(V,D): 2.8 cm2 sev ratio: 1.0 MARCIE indexed to BSA (cm^2/m^2): 1.7 MV E max dileep: 70.9 cm/sec PA V2 max: 100.7 cm/sec MV A max dileep: 85.8 cm/sec PA V2 mean: 68.2 cm/sec MV E/A: 0.83 PA mean P.1 mmHg Med Peak E' Dileep: 5.7 cm/sec PA pr(Accel): 26.6 mmHg E/E' med: 12.5 PA Accel Time: 0.12 sec Lat Peak E' Dileep: 5.8 cm/sec E/E' lat: 12.3 E/e' average: 12.4 MV dec time: 0.26 sec Pulm A Revs Dileep: 32.1 cm/sec Reading Physician:07:24 PM
--- NOTE | 2018-03-26 | DI.CT.S_ITS ---
PROCEDURE: CT HEAD/BRAIN WO CON INDICATIONS: head bleed TECHNIQUE: Noncontrast 4.5 mm thick angled axial sections acquired from the foramen magnum to the vertex, with coronal and sagittal reformats. For radiation dose reduction, the following was used: automated exposure control, adjustment of mA and/or kV according to patient size. COMPARISON: [facility], , MR HEAD/BRAIN WO/W CON, 03/26/2018, 14:14. FINDINGS: Image quality: Partially degraded by motion artifact. CSF spaces: Basal cisterns are patent. The ventricles are symmetric in size and shape. Brain: The known left subdural fluid collection is relatively isodense to brain parenchyma, and is constantly suboptimally visualized, but is not definitely changed. There is cerebral volume loss for age, with resultant ventricular and sulcal prominence. There are periventricular and deep white matter chronic small vessel ischemic changes. There is intracranial internal carotid artery atherosclerosis. Skull and face: Calvarium and visualized facial bones appear intact, without suspicious lesions. Sinuses: Visualized sinuses and mastoids are clear. IMPRESSION: Suboptimal visualization of the patient's known left subdural hematoma secondary to motion artifact and density of the hematoma, which is not definitely changed. Dictated by: Salomón Chinchilla M.D. on 03/26/2018 at 17:40 Approved by: Salomón Chinchilla M.D. on 03/26/2018 at 17:41
[2018-03-26] MEDS: SODIUM CHLORIDE 0.9% 1,000 ML 125 ML IV (00:08)
[2018-03-26] MEDS: VANCOMYCIN 500 MG in SODIUM CHLORIDE 0.9% 100 ML IV ×2 (03:08→16:51)
[2018-03-26] MEDS: OXYCODONE IR 10 MG TABLET PO ×3 (04:56→17:47)
[2018-03-26 06:13] LABS: Add Manual Diff / Slide Review NO; Basophils Percent Auto 2.1 % (0-2); Eosinophils Percent Auto 4.6 % (2-4); Hematocrit 34.5 % (41-53); Hemoglobin 11.5 g/dL (13.5-17.5); Lymphocytes Percent Auto 27.1 % (25-40); Mean Corpuscular HGB Conc 33.3 % (30-36); Mean Corpuscular Hemoglobin 29.3 PG (26-34); Mean Corpuscular Volume 88.1 fL (80-100); Monocytes Percent Auto 6.9 % (3-14); Neutrophils Absolute Auto 5800 /uL (3000-5900); Neutrophils Percent Auto 59.3 % (50-75); Platelet Count 621 X10^3/uL (150-400); Red Blood Cell Count 3.92 X10^6/uL (4.5-5.9); Red Cell Distribution Width 13.7 % (11.6-14.8); White Blood Cell Count 9.7 X10^3/uL (4.5-11.0)
[2018-03-26 06:32] LABS: Blood Urea Nitrogen 24 mg/dL (9-20); Calcium 9.1 mg/dL (8.4-10.2); Carbon Dioxide 24 mmol/L (22-32); Chloride 105 mmol/L (98-107); Estimated Glomerular Filt Rate 46.1 mL/min (>60); Glucose 118 mg/dL (80-110); HEMOLYSIS < 15 (0-50); Potassium 4.9 mmol/L (3.4-5.1); Sodium 139 mmol/L (137-145)
[2018-03-26] MEDS: LISINOPRIL 20 MG TABLET PO (08:29)
[2018-03-26] MEDS: HEPARIN 5,000 UNIT/ML VIAL 5000 UNIT SUBCUT ×2 (08:30→21:28)
[2018-03-26] MEDS: ASPIRIN EC 81 MG TABLET PO (08:30)
--- NOTE | 2018-03-26 10:29 | PM.DS.1 ---
History of Present Illness Chief complaint: CVA Narrative: 72-year-old male with past medical history of type 2 diabetes mellitus, gout, hypertension, hyperlipidemia, CKD stage IIIB, rheumatic fever as a child, spinal stenosis, and recent diagnosis of osteomyelitis status post incision and drainage and currently on IV antibiotics presented to ED from [facility] with a transient episode of slurred speech. As per patient, he was doing a few test at the custodial earlier, during which time he had an episode of slurred speech, to which he was not able to bring the words out that he wanted. Patient denies any confusion or memory loss at that time. Denies any loss of consciousness, seizure-like activity, bowel bladder loss control, or tongue biting. Patient denies any dizziness or blurry vision. Denies any chest pain or shortness of breath. Denies any nausea or vomiting, diarrhea or constipation, or abdominal pain. Patient does not have any symptoms. Patient states that he had a similar episode last night, with duration of 20 min, during which time no help was sought. Similarly, during the last episode patient did not experience confusion or memory loss, merely slurred speech. Patient denies any weakness. Discharge Providers Date of admission: 03/25/18 14:16 Primary care physician: Chloé Nguyen PA-C Consults: 03/25/18 16:40 Consult to Ash Collector Routine Comment: [facility] Discharge provider: Chikis Hayward MD Discharge Date: 03/26/18 Summary Discharge Diagnosis: Diabetes Mellitus, Type II, stable OM L foot CKD IIIB Gout HTN Thrombocytosis Hospital Course: In ED, patient is back to baseline with the slurred speech episode resolved. Patient's vital signs were stable with exception of blood pressure which was slightly elevated at 154/81. Lab work revealed WBC 1.0, hematocrit 34.0, hemoglobin 11.2, platelets 0 8. Sodium 140, potassium 5.1, chloride 103, bicarb 23, BUN 35, and creatinine 1.7. Blood glucose was 209. LFTs were normal. EKG showed normal sinus rhythm with possible old inferior infarct. CT head showed no acute intracranial findings. Patient was admitted for further TIA workup. While on the floors, patient was waiting to get an echocardiogram done, when he experienced 1 more episode of slurred speech, which lasted about 2 hr. CTA head and neck at that time was ordered which was negative for any occlusions or stenosis, but revealed 60% right internal carotid artery origin stenosis. Patient's previous lab work was reviewed, lipid panel and hemoglobin A1c done on 03/15/2018 which showed triglycerides 185, cholesterol 165, LDL 101, HDL 27 and A1c 10.3. Patient was restarted back on aspirin 81 mg daily and atorvastatin was increased to 40 mg p.o. q.h.s..His Lisinopril was restarted at 20mg PO Daily for better blood pressure control. Echocardiography was performed, for which patient will have to follow up on the outpatient basis. Patient was getting ready for discharge at 12:00pm on 03/26/18, when he experienced yet another episode of R facial droop, mild confusion, and slurred speech. THis episode lasted 15min. MRI head wwo contrast ordered and neurology consulted, who recommended loading patient with Plavix 300mg and starting at 75mg PO Daily tomorrow-to give dual antiplatelet therapy for 21 days due to concern of lacunnar phenomena. Patient was given Ativan 2mg IV for clostrophobia and went for MRI at 4:00-4:30pm. I was notified by radiology around 5pm that patient has 6mm L frontotemporal subdural hematoma without midline shift. [facility] neurosurgery consulted, who asked for STAT CTHead to confirm the bleed. CTHead revealed same findings of L subdural hematoma. Patient was transferred to [facility] for further management. Vancomycin IV was continued for patient's left foot osteomyelitis during this hospital admission Status at Discharge Functional status at discharge: uses cane/walker Overall status at discharge: patient is progressing back to baseline Time Spent with Patient Less than 30 minutes Exam Vital Signs (past 8 hours): - 03/26/18 04:30 03/26/18 07:40 03/26/18 08:29 Temperature 98.2 F 97.7 F Pulse Rate 77 76 117 H Respiratory Rate 18 16 Blood Pressure 148/85 H 140/93 H 143/93 H Pulse Oximetry 96 97 Oxygen Delivery Method Room Air Oxygen Flow Rate 0 Narrative Exam Narrative: General: Slightly lethargic from ativan but AAOx3 HEENT: PERRLA bilaterally EOMI bilaterally. Speech is clear. Moist mucous membranes Neck: Supple, no LAD or JVD CV: Regular rate and rhythm, systolic murmur appreciated. 2+ pulses present Respiratory: Clear to auscultation bilaterally, no wheezing or crackles GI: Positive bowel sounds in all 4 quadrants, nontender, no organomegaly Musculoskeletal: Normal range of motion in all 4 extremities Extremities: 1+ pitting edema in lower extremities bilaterally up to knees. Left ft is in dressings with an elevating boot on Neuro: No focal deficits, cranial nerves 2-12 are intact. Sensation intact. Psych: Mood is appropriate Skin: No bruising or lesions Objective Labs Result Diagrams: 03/26/18 06:00 03/26/18 06:00 Labs: Laboratory Results - last 24 hr 03/25/18 03/25/18 03/25/18 12:35 12:35 12:35 WBC 11.0 RBC 3.86 L Hgb 11.2 L Hct 34.0 L MCV 88.2 MCH 29.1 MCHC 33.0 RDW 13.9 Plt Count 608 H Neut % (Auto) Not Reportable Lymph % (Auto) Not Reportable Coal % (Auto) Not Reportable Eos % (Auto) Not Reportable Baso % (Auto) Not Reportable Neut # (Auto) Total Counted 100 Seg Neutrophils % 79.0 H Band Neutrophils % 2.0 L Lymphocytes % (Manual) 6.0 L Atypical Lymphs % 2.0 H Monocytes % (Manual) 8.0 Eosinophils % (Manual) 3.0 Neutrophils # (Manual) 8910 H RBC Morphology Normal morphology PT 14.0 H INR 1.3 APTT 32 D Sodium 140 Potassium 5.1 Chloride 103 Carbon Dioxide 23 BUN 35 H Creatinine 1.70 H Estimated GFR 39.9 L BUN/Creatinine Ratio 20.6 Glucose 158 H Calcium 9.3 Total Bilirubin 0.2 AST 25 ALT 27 Alkaline Phosphatase 119 Total Protein 7.6 Albumin 3.8 Globulin 3.8 Albumin/Globulin Ratio 1.0 Lipase 194 TSH 03/25/18 03/26/18 03/26/18 12:35 06:00 06:00 WBC 9.7 RBC 3.92 L Hgb 11.5 L Hct 34.5 L MCV 88.1 MCH 29.3 MCHC 33.3 RDW 13.7 Plt Count 621 H Neut % (Auto) 59.3 Lymph % (Auto) 27.1 Coal % (Auto) 6.9 Eos % (Auto) 4.6 H Baso % (Auto) 2.1 H Neut # (Auto) 5800 Total Counted Seg Neutrophils % Band Neutrophils % Lymphocytes % (Manual) Atypical Lymphs % Monocytes % (Manual) Eosinophils % (Manual) Neutrophils # (Manual) RBC Morphology PT INR APTT Sodium 139 Potassium 4.9 Chloride 105 Carbon Dioxide 24 BUN 24 H Creatinine 1.50 H Estimated GFR 46.1 L BUN/Creatinine Ratio 16.0 Glucose 118 H Calcium 9.1 Total Bilirubin AST ALT Alkaline Phosphatase Total Protein Albumin Globulin Albumin/Globulin Ratio Lipase TSH 0.99 Discharge Plan Discharge Plan Transfer to: [facility] Transportation: Ambulance Discharge comment: Patient needs follow up with PCP regarding ECHO results Discharge Med Rec/Prescriptions Prescriptions: New lisinopril 20 mg Tablet 20 mg PO DAILY Qty: 30 RF: 0 Continue sennosides [senna] 8.6 mg Tablet 17.2 mg PO BEDTIME Qty: 30 RF: 0 acetaminophen 325 mg Tablet 650 mg PO Q6HR PRN (Reason: As Needed For Fever/Mild Pain) Qty: 30 RF: 0 docusate sodium 100 mg Capsule 100 mg PO BID Qty: 30 RF: 0 vancomycin in 0.9 % sodium chl 500 mg/100 mL piggyback 500 mg IV Q12H 42 Days Qty: 8400 RF: 0 acetaminophen 500 mg Tablet 1,000 mg PO BID RF: 0 magnesium hydroxide [Milk of Magnesia] 400 mg/5 mL Suspension 30 ml PO PRN PRN (Reason: Constipation) RF: 0 bisacodyl 10 mg Suppository 10 mg OH DAILY PRN (Reason: Constipation) RF: 0 sodium phosphates [Fleet Enema] 19-7 gram/118 mL Enema OH PRN (Reason: Constipation) RF: 0 bisacodyl 5 mg Tablet,Delayed Release (Dr/Ec) 5 mg PO PRN PRN (Reason: Constipation) RF: 0 insulin lispro 100 unit/mL Insulin Pen subcut ACHS RF: 0 Vancomycin Hcl Solution 900 mg PO DAILY RF: 0 oxycodone 10 mg tablet 10 mg PO Q8H PRN (Reason: Back Pain) Qty: 20 RF: 0 Changed atorvastatin [Lipitor] 20 mg Tablet 40 mg PO BEDTIME Qty: 60 RF: 0 Discontinued metformin 500 mg tablet 500 mg PO BID RF: 0 indomethacin 25 mg Capsule 75 mg PO BIDWM Qty: 20 RF: 0 Discharge Orders: Discharge (Order); Ordered 03/26/18 Ordered By: Chikis Hayward Provider Discharge Instructions Diet: Carb-consistent/Diabetic Skin/Wound/Dressing Care Skin care: Dressing changes as before Discharge Data Primary Care Provider: Chloé Nguyen Attending Provider: Chikis Hayward Admit Date/Time: 03/26/18 13:53 Quality VTE Deep Vein Thrombosis/Pulmonary Embolism Present on Admission: No
--- NOTE | 2018-03-26 10:35 | P.DS_ITS ---
History of Present Illness Chief complaint: CVA Narrative: 72-year-old male with past medical history of type 2 diabetes mellitus, gout, hypertension, hyperlipidemia, CKD stage IIIB, rheumatic fever as a child, spinal stenosis, and recent diagnosis of osteomyelitis status post incision and drainage and currently on IV antibiotics presented to ED from [facility] with a transient episode of slurred speech. As per patient , he was doing a few test at the intermediate earlier, during which time he had an episode of slurred speech, to which he was not able to bring the words out that he wanted. Patient denies any confusion or memory loss at that time. Denies any loss of consciousness, seizure-like activity, bowel bladder loss control, or tongue biting. Patient denies any dizziness or blurry vision. Denies any chest pain or shortness of breath. Denies any nausea or vomiting, diarrhea or constipation, or abdominal pain. Patient does not have any symptoms. Patient states that he had a similar episode last night, with duration of 20 min, during which time no help was sought. Similarly, during the last episode patient did not experience confusion or memory loss, merely slurred speech. Patient denies any weakness. Discharge Providers Date of admission: 03/25/18 14:16 Primary care physician: Chloé Nguyen PA-C Consults: 03/25/18 16:40 Consult to Force Variation Equipment Tender Routine Comment: expects to return to [facility] Discharge provider: Chikis Hayward MD Discharge Date: 03/26/18 Summary Discharge Diagnosis: Diabetes Mellitus, Type II, stable OM L foot CKD IIIB Gout HTN Thrombocytosis Hospital Course: In ED, patient is back to baseline with the slurred speech episode resolved. Patient's vital signs were stable with exception of blood pressure which was slightly elevated at 154/81. Lab work revealed WBC 1.0, hematocrit 34.0, hemoglobin 11.2, platelets 0 8. Sodium 140, potassium 5.1, chloride 103, bicarb 23, BUN 35, and creatinine 1.7. Blood glucose was 209. LFTs were normal. EKG showed normal sinus rhythm with possible old inferior infarct. CT head showed no acute intracranial findings. Patient was admitted for further TIA workup. While on the floors, patient was waiting to get an echocardiogram done, when he experienced 1 more episode of slurred speech, which lasted about 2 hr. CTA head and neck at that time was ordered which was negative for any occlusions or stenosis, but revealed 60% right internal carotid artery origin stenosis. Patient's previous lab work was reviewed, lipid panel and hemoglobin A1c done on 03/15/2018 which showed triglycerides 185, cholesterol 165, LDL 101, HDL 27 and A1c 10.3. Patient was restarted back on aspirin 81 mg daily and atorvastatin was increased to 40 mg p.o. q.h.s..His Lisinopril was restarted at 20mg PO Daily for better blood pressure control. Echocardiography was performed , for which patient will have to follow up on the outpatient basis. Patient was getting ready for discharge at 12:00pm on 03/26/18, when he experienced yet another episode of R facial droop, mild confusion, and slurred speech. THis episode lasted 15min. MRI head wwo contrast ordered and neurology consulted, who recommended loading patient with Plavix 300mg and starting at 75mg PO Daily tomorrow-to give dual antiplatelet therapy for 21 days due to concern of lacunnar phenomena. Patient was given Ativan 2mg IV for clostrophobia and went for MRI at 4:00-4:30pm. I was notified by radiology around 5pm that patient has 6mm L frontotemporal subdural hematoma without midline shift. [facility] neurosurgery consulted, who asked for STAT CTHead to confirm the bleed. CTHead revealed same findings of L subdural hematoma. Patient was transferred to [facility] for further management. Vancomycin IV was continued for patient's left foot osteomyelitis during this hospital admission Status at Discharge Functional status at discharge: uses cane/walker Overall status at discharge: patient is progressing back to baseline Time Spent with Patient Less than 30 minutes Exam Vital Signs (past 8 hours): - 03/26/18 04:30 03/26/18 07:40 03/26/18 08:29 Temperature 98.2 F 97.7 F Pulse Rate 77 76 117 H Respiratory Rate 18 16 Blood Pressure 148/85 H 140/93 H 143/93 H Pulse Oximetry 96 97 Oxygen Delivery Method Room Air Oxygen Flow Rate 0 Narrative Exam Narrative: General: Slightly lethargic from ativan but AAOx3 HEENT: PERRLA bilaterally EOMI bilaterally. Speech is clear. Moist mucous membranes Neck: Supple, no LAD or JVD CV: Regular rate and rhythm, systolic murmur appreciated. 2+ pulses present Respiratory: Clear to auscultation bilaterally, no wheezing or crackles GI: Positive bowel sounds in all 4 quadrants, nontender, no organomegaly Musculoskeletal: Normal range of motion in all 4 extremities Extremities: 1+ pitting edema in lower extremities bilaterally up to knees. Left ft is in dressings with an elevating boot on Neuro: No focal deficits, cranial nerves 2-12 are intact. Sensation intact. Psych: Mood is appropriate Skin: No bruising or lesions Objective Labs Result Diagrams: 03/26/18 06:00 03/26/18 06:00 Labs: Laboratory Results - last 24 hr 03/25/18 03/25/18 03/25/18 12:35 12:35 12:35 WBC 11.0 RBC 3.86 L Hgb 11.2 L Hct 34.0 L MCV 88.2 MCH 29.1 MCHC 33.0 RDW 13.9 Plt Count 608 H Neut % (Auto) Not Reportable Lymph % (Auto) Not Reportable Dent % (Auto) Not Reportable Eos % (Auto) Not Reportable Baso % (Auto) Not Reportable Neut # (Auto) Total Counted 100 Seg Neutrophils % 79.0 H Band Neutrophils % 2.0 L Lymphocytes % (Manual) 6.0 L Atypical Lymphs % 2.0 H Monocytes % (Manual) 8.0 Eosinophils % (Manual) 3.0 Neutrophils # (Manual) 8910 H RBC Morphology Normal morphology PT 14.0 H INR 1.3 APTT 32 D Sodium 140 Potassium 5.1 Chloride 103 Carbon Dioxide 23 BUN 35 H Creatinine 1.70 H Estimated GFR 39.9 L BUN/Creatinine Ratio 20.6 Glucose 158 H Calcium 9.3 Total Bilirubin 0.2 AST 25 ALT 27 Alkaline Phosphatase 119 Total Protein 7.6 Albumin 3.8 Globulin 3.8 Albumin/Globulin Ratio 1.0 Lipase 194 TSH 03/25/18 03/26/18 03/26/18 12:35 06:00 06:00 WBC 9.7 RBC 3.92 L Hgb 11.5 L Hct 34.5 L MCV 88.1 MCH 29.3 MCHC 33.3 RDW 13.7 Plt Count 621 H Neut % (Auto) 59.3 Lymph % (Auto) 27.1 Dent % (Auto) 6.9 Eos % (Auto) 4.6 H Baso % (Auto) 2.1 H Neut # (Auto) 5800 Total Counted Seg Neutrophils % Band Neutrophils % Lymphocytes % (Manual) Atypical Lymphs % Monocytes % (Manual) Eosinophils % (Manual) Neutrophils # (Manual) RBC Morphology PT INR APTT Sodium 139 Potassium 4.9 Chloride 105 Carbon Dioxide 24 BUN 24 H Creatinine 1.50 H Estimated GFR 46.1 L BUN/Creatinine Ratio 16.0 Glucose 118 H Calcium 9.1 Total Bilirubin AST ALT Alkaline Phosphatase Total Protein Albumin Globulin Albumin/Globulin Ratio Lipase TSH 0.99 Discharge Plan Discharge Plan Transfer to: [facility] Transportation: Ambulance Discharge comment: Patient needs follow up with PCP regarding ECHO results Discharge Med Rec/Prescriptions Prescriptions: New lisinopril 20 mg Tablet 20 mg PO DAILY Qty: 30 RF: 0 Continue sennosides [senna] 8.6 mg Tablet 17.2 mg PO BEDTIME Qty: 30 RF: 0 acetaminophen 325 mg Tablet 650 mg PO Q6HR PRN (Reason: As Needed For Fever/Mild Pain) Qty: 30 RF: 0 docusate sodium 100 mg Capsule 100 mg PO BID Qty: 30 RF: 0 vancomycin in 0.9 % sodium chl 500 mg/100 mL piggyback 500 mg IV Q12H 42 Days Qty: 8400 RF: 0 acetaminophen 500 mg Tablet 1,000 mg PO BID RF: 0 magnesium hydroxide [Milk of Magnesia] 400 mg/5 mL Suspension 30 ml PO PRN PRN (Reason: Constipation) RF: 0 bisacodyl 10 mg Suppository 10 mg IN DAILY PRN (Reason: Constipation) RF: 0 sodium phosphates [Fleet Enema] 19-7 gram/118 mL Enema IN PRN (Reason: Constipation) RF: 0 bisacodyl 5 mg Tablet,Delayed Release (Dr/Ec) 5 mg PO PRN PRN (Reason: Constipation) RF: 0 insulin lispro 100 unit/mL Insulin Pen subcut ACHS RF: 0 Vancomycin Hcl Solution 900 mg PO DAILY RF: 0 oxycodone 10 mg tablet 10 mg PO Q8H PRN (Reason: Back Pain) Qty: 20 RF: 0 Changed atorvastatin [Lipitor] 20 mg Tablet 40 mg PO BEDTIME Qty: 60 RF: 0 Discontinued metformin 500 mg tablet 500 mg PO BID RF: 0 indomethacin 25 mg Capsule 75 mg PO BIDWM Qty: 20 RF: 0 Discharge Orders: Discharge (Order); Ordered 03/26/18 Ordered By: Chikis Hayward Provider Discharge Instructions Diet: Carb-consistent/Diabetic Skin/Wound/Dressing Care Skin care: Dressing changes as before Discharge Data Primary Care Provider: Chloé Nguyen Attending Provider: Chikis Hayward Admit Date/Time: 03/26/18 13:53 Quality VTE Deep Vein Thrombosis/Pulmonary Embolism Present on Admission: No
--- NOTE | 2018-03-26 10:59 | PC.NURSE ---
Addendum entered by Peewee Sharma R.N. 03/26/18 15:40: Pt willing to try MRI again with a dose of ativan. Report given to Janice TRONCOSO Original Note: Addendum entered by Peewee Sharma R.N. 03/26/18 12:47: 12:00 Called to room by RT Hernandez who was passing room and noted Pt had slurred speech and wasn't feeling well. See V.S. Doctor Yesy was notified. See new orders. Pt was assessed and serial B/p's along with NIH testing was done. Only noticeable change was speech. which cleared than slurred and now clearing. Pt was able to function , ask questions, voice concerns throughout. Labetolol was ordered but held as B/p trended down to 153/91. Original Note: Discussed plan of care answered Pt's concerns and encouraged Pt to really think about ways to improve his health. He states he is not ready to right now and that these events lately have woken him up.
--- NOTE | 2018-03-26 12:17 | DI.MRI.S_ITS ---
PROCEDURE: MR HEAD/BRAIN WO/W CON INDICATIONS: tia symptoms TECHNIQUE: Noncontrast axial T1 spin echo, axial T2 fast spin echo, sagittal and axial FLAIR, coronal T2 fast spin echo, axial gradient echo, axial diffusion and ADC through the brain. After the administration of contrast, axial and coronal T1 spin echo with fat saturation through the brain. COMPARISON: [facility], CT, CT HEAD/BRAIN WO CON, 03/25/2018, 11:41. FINDINGS: Image quality: Degraded by motion artifact. CSF spaces: Basal cisterns are patent. Ventricles are normal in size and shape. Brain: No midline shift. There is a small peripherally enhancing subdural fluid collection overlying the left frontotemporal lobe, with a maximal thickness of roughly 6 mm. No midline shift. There is cerebral volume loss for age. There is periventricular white matter chronic small vessel ischemic change. The brainstem appears normal. Diffusion-weighted images demonstrate no acute ischemic insults. No chronic ischemic insults. Normal intravascular flow voids are present. Skull and face: Calvarial marrow is normal in signal. Orbits appear normal. Sinuses: Sinuses and mastoids appear clear. IMPRESSION: 1. Small left subdural hematoma. Findings discussed with Dr. Hayward on 03.26.18 at 1643 hrs. Dictated by: Salomón Chinchilla M.D. on 03/26/2018 at 16:39 Approved by: Salomón Chinchilla M.D. on 03/26/2018 at 16:43
--- NOTE | 2018-03-26 13:00 | PM.PN.1 ---
Subjective Date Patient Seen: 03/26/18 Time Patient Seen: 13:00 Interval history: Follow-up on slurred speech and confusion Patient seen at bedside. After being admitted to general medical floor, patient had another episode of slurred speech with slight right facial droop and confusion, which lasted 1.5 hr. CTA head and neck ordered at that time which revealed normal anterior cerebral middle cerebral and posterior cerebral circulation. There was 60% stenosis of right internal carotid artery. Patient was observed overnight with no repeat episodes. The next day patient was planned to be discharged home after echocardiogram study, however, yet again he went into another episode of slurred speech and right facial droop, as well as confusion. This episode happened roughly around 12:00 p.m. and lasted 10-15 minutes. MRI with and without contrast has been ordered. I have called the stroke help line and has spoken with neurologist, who agreed to MRI and has recommended dual antiplatelet therapy with loading of Plavix 300 mg today and 75 mg daily for 21 days. Exam Vital Signs (past 8 hours): - 03/26/18 07:40 03/26/18 08:29 03/26/18 11:40 Temperature 97.7 F Pulse Rate 76 117 H 78 Respiratory Rate 16 20 Blood Pressure 140/93 H 143/93 H 145/88 H Pulse Oximetry 97 98 03/26/18 12:05 03/26/18 12:10 03/26/18 12:15 Temperature Pulse Rate Respiratory Rate Blood Pressure 185/110 H 171/101 H 155/91 H Pulse Oximetry 03/26/18 12:20 Temperature Pulse Rate Respiratory Rate Blood Pressure 153/91 H Pulse Oximetry Oxygen Delivery Method Room Air Oxygen Flow Rate 0 Narrative Exam Narrative: General: No acute distress, AAO x3 HEENT: PERRLA bilaterally EOMI bilaterally. Speech is clear. Moist mucous membranes Neck: Supple, no LAD or JVD CV: Regular rate and rhythm, systolic murmur appreciated. 2+ pulses present Respiratory: Clear to auscultation bilaterally, no wheezing or crackles GI: Positive bowel sounds in all 4 quadrants, nontender, no organomegaly Musculoskeletal: Normal range of motion in all 4 extremities Extremities: 1+ pitting edema in lower extremities bilaterally up to knees. Left ft is in dressings with an elevating boot on Neuro: No focal deficits, cranial nerves 2-12 are intact. Sensation intact. Psych: Mood is appropriate Skin: No bruising or lesions Objective Labs Result Diagrams: 03/26/18 06:00 03/26/18 06:00 Labs: Laboratory Results - last 24 hr 03/25/18 03/25/18 03/25/18 12:35 12:35 12:35 WBC RBC Hgb Hct MCV MCH MCHC RDW Plt Count Neut % (Auto) Lymph % (Auto) [place]row[place] % (Auto) Eos % (Auto) Baso % (Auto) Neut # (Auto) Total Counted 100 Seg Neutrophils % 79.0 H Band Neutrophils % 2.0 L Lymphocytes % (Manual) 6.0 L Atypical Lymphs % 2.0 H Monocytes % (Manual) 8.0 Eosinophils % (Manual) 3.0 Neutrophils # (Manual) 8910 H RBC Morphology Normal morphology PT 14.0 H INR 1.3 APTT 32 D Sodium 140 Potassium 5.1 Chloride 103 Carbon Dioxide 23 BUN 35 H Creatinine 1.70 H Estimated GFR 39.9 L BUN/Creatinine Ratio 20.6 Glucose 158 H Calcium 9.3 Total Bilirubin 0.2 AST 25 ALT 27 Alkaline Phosphatase 119 Total Protein 7.6 Albumin 3.8 Globulin 3.8 Albumin/Globulin Ratio 1.0 Lipase 194 TSH 03/25/18 03/26/18 03/26/18 12:35 06:00 06:00 WBC 9.7 RBC 3.92 L Hgb 11.5 L Hct 34.5 L MCV 88.1 MCH 29.3 MCHC 33.3 RDW 13.7 Plt Count 621 H Neut % (Auto) 59.3 Lymph % (Auto) 27.1 Prowers % (Auto) 6.9 Eos % (Auto) 4.6 H Baso % (Auto) 2.1 H Neut # (Auto) 5800 Total Counted Seg Neutrophils % Band Neutrophils % Lymphocytes % (Manual) Atypical Lymphs % Monocytes % (Manual) Eosinophils % (Manual) Neutrophils # (Manual) RBC Morphology PT INR APTT Sodium 139 Potassium 4.9 Chloride 105 Carbon Dioxide 24 BUN 24 H Creatinine 1.50 H Estimated GFR 46.1 L BUN/Creatinine Ratio 16.0 Glucose 118 H Calcium 9.1 Total Bilirubin AST ALT Alkaline Phosphatase Total Protein Albumin Globulin Albumin/Globulin Ratio Lipase TSH 0.99 Assessment & Plan Plan: Assessment/Plan Narrative: 1. Slurred speech -likely due to TIA versus lacunar CVA -EKG showed normal sinus rhythm with possible old inferior IL -CT head showed no acute intracranial process -CTA head and neck is negative for intracerebral stenosis or occlusions. There is only right internal carotid 60% stenosis. -patient's lab reviewed: Hemoglobin A1c was 10.3 on 03/15/2018, lipid panel revealed triglycerides 185, cholesterol 165, LDL 101, HDL 27 also on 03/15/2018. TSH normal -MRI head with and without contrast pending -as per Neurology recommendations will add on Plavix for dual antiplatelet therapy at least 21 days -continue aspirin 81 mg daily, and increased atorvastatin to 40 mg q.h.s. 2. Diabetes mellitus type 2 -patient was on metformin up until 2 weeks ago admission to [facility] -blood glucose since admission stable -hemoglobin A1c on 03/15/2018 was 10.3... Patient needs tighter glucose control -continue lispro sliding scale and readjust as per patient's need -frequent Accu-Cheks, hypoglycemia protocol 3. Osteomyelitis left foot -status post incision and drainage on 03/15/2018 -wound cultures grew MRSA, MRI showed osteomyelitis -patient currently has PICC line in place and is getting vancomycin 500 mg q.12 hours for total duration of 6 weeks -continue vancomycin as scheduled 4. CKD stage IIIB -compared to previous admissions, patient is at baseline -BUN is 35->24, creatinine is 1.7->1.5 -continue to hold metformin and indomethacin -avoid nephrotoxin and monitor renal function 5. Gout -patient used to take indomethacin -continue to hold indomethacin in light of chronic kidney disease 6. Hypertension -blood pressure is slightly elevated on admission, 154/81 -patient states he was on lisinopril up until last admission and has not received it since -as per Neurology recommendations, will hold lisinopril and allow permissive hypertension 7. Spinal stenosis -continue oxycodone 10 mg p.o. Q 6 hr as needed 8. Thrombocytosis -possibly reactive -continue to monitor, ASA is on board Patient wishes to be full code Dispo: Pending MRI with and without contrast for further evaluation of ischemia. Quality VTE Deep Vein Thrombosis/Pulmonary Embolism Present on Admission: No
[2018-03-26] MEDS: CLOPIDOGREL 300 MG TABLET PO (13:02)
[2018-03-26] MEDS: INSULIN ASPART 100 UNIT/ML INSULN PEN SUBCUT (14:15)
[2018-03-26 15:03] LABS: Vancomycin Trough 14.4 ug/mL (10-20)
[2018-03-26] MEDS: LORazepam 2 MG/ML SYRINGE IV (15:44)
[2018-03-26] MEDS: CYCLOBENZAPRINE 5 MG TABLET PO (19:12)
[2018-03-26] MEDS: levETIRAcetam 1,000 MG in SODIUM CHLORIDE 0.9% 100 ML 440 ML IV (19:27)
[2018-03-26] MEDS: ATORVASTATIN 20 MG TABLET 40 MG PO (21:28)
--- NOTE | 2018-03-26 22:13 | PC.NURSE ---
Evening Shift Note- Patient left via ambulance to [facility] in [place] at 2150. Report called to BAA Uribe at [facility] neuro ICU. Patients POSeth (Selma) took all personal belongs home with her except patients cheater glasses which left with patient.
--- NOTE | 2018-03-27 10:14 | CM.IDA ---
Late Entry Discharge Planning/Care Management CM Discharge Assessment Start: 03/27/18 09:28 Freq: Status: Discharge Protocol: Document 03/27/18 09:28 DAVID (Rec: 03/27/18 10:14 DAVID [email or web address]) Discharge Planning Assessment Assigned Qc Manager BEN Johns/Assigned Designee Name Selma Gomez Contact Information [phone], cell , home Advance Directives? No Advance Directives on File No History Provided By Patient Medical Record Prior Living Arrangements Skilled Nurse Facility Comment Pt has been at [facility] since 03/14, he had DC from [facility] w/wound vac and continued IV abx treatment. Pt returned to for TIA w/u. Household Members friend(s) Comment Yesterday morning, Dr Hayward expected that pt would return to [facility] and [facility] was willing to accept pt back. Pt was agreeable to such. At approx 1200, pt had another episode of slurred speech and it was expected that he would remain in house another night. Pt was transferred to [facility] at approx 2150 last night, per nursing notes. This MAGAZINE REPAIRER updated [facility] admissions phone P # [phone] via w/update . JOBY Hahn collected pt's items from per notes. Facility Name Admitted From: [facility] Willing to Return to Facility? Yes Independent with ADL's No Is patient alert and oriented? Yes Discharge Plan Transfer to Higher Level of Care Transportation Arrangement Ambulance
== END 2018-03-26 21:50 | disposition short-term general hospital (02) | DRG 65 ==
LOC: ED 12:59 → AC 14:16
PROVIDERS: Admitting Provider Internal Medicine; Emergency Provider Emergency Medicine; PCP Physician Assistant; Visit Provider Internal Medicine
DX: I62.01 Nontraumatic acute subdural hemorrhage (principal); M86.8X7 Other osteomyelitis, ankle and foot; E11.69 Type 2 diabetes mellitus with other specified complication; E11.65 Type 2 diabetes mellitus with hyperglycemia; B95.62 Methicillin resistant Staphylococcus aureus infection as the cause of diseases classified elsewhere; R47.81 Slurred speech; R41.0 Disorientation, unspecified; I10 Essential (primary) hypertension; E78.5 Hyperlipidemia, unspecified; N18.3 Chronic kidney disease, stage 3 (moderate); Z79.84 Long term (current) use of oral hypoglycemic drugs; M10.9 Gout, unspecified; D47.3 Essential (hemorrhagic) thrombocythemia; I65.21 Occlusion and stenosis of right carotid artery
CPT/HCPCS: 11042; 36591; 70450; 70496; 70498; 70553; 80048; 80053; 80202; 82962; 83690; 84443; 85025; 85610; 85730; 93005; 93306; 93880; 99212; 99283; 99285; 99291; G0378; J1644; J1953; J2060; J3370; Q9967

== ENCOUNTER → 2018-03-30 08:48 | Outpatient (REF) | payer MEDICARE, SELFPAY ==
[2018-03-25 16:31] VITALS: BMI 27.7
[2018-03-30 10:36] LABS: BUN Creatinine Ratio 21.3 (6-22); Blood Urea Nitrogen 32 mg/dL (9-20); Calcium 9.1 mg/dL (8.4-10.2); Carbon Dioxide 22 mmol/L (22-32); Chloride 108 mmol/L (98-107); Estimated Glomerular Filt Rate 46.1 mL/min (>60); Glucose 90 mg/dL (80-110); HEMOLYSIS < 15 (0-50); Potassium 4.7 mmol/L (3.4-5.1); Sodium 143 mmol/L (137-145)
== END ==
LOC: LAB 08:48
PROVIDERS: PCP Physician Assistant; Visit Provider Hospitalist
DX: M86.9 Osteomyelitis, unspecified (principal)
CPT/HCPCS: 80048

== ENCOUNTER → 2018-03-30 10:11 | Outpatient (CLI) | payer MEDICARE, SELFPAY ==
[2018-03-25 16:31] VITALS: BMI 27.7
== END ==
PROVIDERS: PCP Physician Assistant; Visit Provider Family Medicine
DX: E11.621 Type 2 diabetes mellitus with foot ulcer (principal); L97.522 Non-pressure chronic ulcer of other part of left foot with fat layer exposed; L02.612 Cutaneous abscess of left foot
CPT/HCPCS: 11042; 99212

== ENCOUNTER → 2018-04-01 21:11 | Outpatient (REF) | payer MEDICARE, SELFPAY ==
[2018-03-25 16:31] VITALS: BMI 27.7
[2018-04-01 21:36] LABS: Blood Urea Nitrogen 42 mg/dL (9-20); Calcium 9.5 mg/dL (8.4-10.2); Carbon Dioxide 21 mmol/L (22-32); Chloride 105 mmol/L (98-107); Estimated Glomerular Filt Rate 31.3 mL/min (>60); Glucose 138 mg/dL (80-110); HEMOLYSIS < 15 (0-50); Potassium 4.3 mmol/L (3.4-5.1); Sodium 140 mmol/L (137-145)
[2018-04-01 21:57] LABS: Vancomycin Trough 12.7 ug/mL (10-20)
== END ==
LOC: LAB 21:11
PROVIDERS: PCP Physician Assistant; Visit Provider Hospitalist
DX: L03.90 Cellulitis, unspecified (principal)
CPT/HCPCS: 80048; 80202

== ENCOUNTER → 2018-04-04 07:58 | Outpatient (REF) | payer MEDICARE, SELFPAY ==
[2018-03-25 16:31] VITALS: BMI 27.7
[2018-04-06 10:29] LABS: Levetiracetam Keppra 24.7 mcg/mL
== END ==
LOC: LAB 07:58
PROVIDERS: PCP Physician Assistant; Visit Provider Hospitalist
DX: R56.9 Unspecified convulsions (principal)
CPT/HCPCS: 80177

== ENCOUNTER → 2018-04-04 15:39 | Outpatient (CLI) | payer MEDICARE, SELFPAY ==
[2018-03-25 16:31] VITALS: BMI 27.7
== END ==
PROVIDERS: PCP Physician Assistant; Visit Provider Family Medicine
DX: E11.621 Type 2 diabetes mellitus with foot ulcer (principal); L97.522 Non-pressure chronic ulcer of other part of left foot with fat layer exposed; I96 Gangrene, not elsewhere classified; L02.612 Cutaneous abscess of left foot
CPT/HCPCS: 11042; 11043

== ENCOUNTER → 2018-04-06 14:09 | Outpatient (CLI) | payer MEDICARE, SELFPAY ==
[2018-03-25 16:31] VITALS: BMI 27.7
== END ==
PROVIDERS: PCP Physician Assistant; Visit Provider Family Medicine
DX: E11.621 Type 2 diabetes mellitus with foot ulcer (principal); L97.522 Non-pressure chronic ulcer of other part of left foot with fat layer exposed
CPT/HCPCS: 97605; 99213

== ENCOUNTER → 2018-04-10 22:09 | Outpatient (REF) | payer MEDICARE, SELFPAY ==
[2018-03-25 16:31] VITALS: BMI 27.7
[2018-04-10 22:21] LABS: BUN Creatinine Ratio 23.8 (6-22); Blood Urea Nitrogen 38 mg/dL (9-20); Calcium 9.1 mg/dL (8.4-10.2); Carbon Dioxide 21 mmol/L (22-32); Chloride 107 mmol/L (98-107); Estimated Glomerular Filt Rate 42.8 mL/min (>60); Glucose 129 mg/dL (80-110); HEMOLYSIS < 15 (0-50); Potassium 3.9 mmol/L (3.4-5.1); Sodium 141 mmol/L (137-145)
[2018-04-10 22:28] LABS: Vancomycin Trough 15.6 ug/mL (10-20)
== END ==
LOC: LAB 22:09
PROVIDERS: PCP Physician Assistant; Visit Provider Hospitalist
DX: Z51.81 Encounter for therapeutic drug level monitoring (principal)
CPT/HCPCS: 80048; 80202

== ENCOUNTER → 2018-04-11 07:44 | Outpatient (REF) | payer MEDICARE, SELFPAY ==
[2018-03-25 16:31] VITALS: BMI 27.7
[2018-04-11 08:19] LABS: Hemoglobin A1C% w Est Avg Glu 9.4 % (4.0-6.0)
== END ==
LOC: LAB 07:44
PROVIDERS: PCP Physician Assistant; Visit Provider Hospitalist
DX: E11.9 Type 2 diabetes mellitus without complications (principal)
CPT/HCPCS: 83036

== ENCOUNTER → 2018-04-13 10:37 | Outpatient (CLI) | payer MEDICARE, SELFPAY ==
[2018-03-25 16:31] VITALS: BMI 27.7
== END ==
PROVIDERS: PCP Physician Assistant; Visit Provider Family Medicine
DX: E11.621 Type 2 diabetes mellitus with foot ulcer (principal); L97.525 Non-pressure chronic ulcer of other part of left foot with muscle involvement without evidence of necrosis
CPT/HCPCS: 11042

== ENCOUNTER → 2018-04-13 16:29 | Outpatient (REF) | payer MEDICARE, SELFPAY ==
[2018-03-25 16:31] VITALS: BMI 27.7
[2018-04-13 17:28] LABS: BUN Creatinine Ratio 26.3 (6-22); Blood Urea Nitrogen 42 mg/dL (9-20); Calcium 9.3 mg/dL (8.4-10.2); Carbon Dioxide 20 mmol/L (22-32); Chloride 106 mmol/L (98-107); Estimated Glomerular Filt Rate 42.8 mL/min (>60); Glucose 124 mg/dL (80-110); HEMOLYSIS < 15 (0-50); Potassium 4.1 mmol/L (3.4-5.1); Sodium 142 mmol/L (137-145)
[2018-04-15 18:27] LABS: Levetiracetam Keppra 28.4 mcg/mL
== END ==
LOC: LAB 16:29
PROVIDERS: PCP Physician Assistant; Visit Provider Hospitalist
DX: G40.909 Epilepsy, unspecified, not intractable, without status epilepticus (principal); Z79.01 Long term (current) use of anticoagulants
CPT/HCPCS: 80048; 80177

== ENCOUNTER → 2018-04-15 07:54 | Outpatient (REF) | payer MEDICARE, SELFPAY ==
[2018-03-25 16:31] VITALS: BMI 27.7
[2018-04-15 09:27] LABS: C-Reactive Protein Quant 1.7 mg/dL (<1.0); Erythrocyte Sedimentation Rate 66 MM/HR (0-15)
== END ==
LOC: LAB 07:54
PROVIDERS: PCP Physician Assistant; Visit Provider Hospitalist
DX: L03.90 Cellulitis, unspecified (principal)
CPT/HCPCS: 36415; 85651; 86140

== ENCOUNTER → 2018-04-16 00:07 | Outpatient (REF) | payer MEDICARE, SELFPAY ==
[2018-03-25 16:31] VITALS: BMI 27.7
== END ==
LOC: LAB 00:07
PROVIDERS: PCP Physician Assistant; Visit Provider Hospitalist
DX: G89.4 Chronic pain syndrome (principal)

== ENCOUNTER → 2018-04-20 08:01 | Outpatient (REF) | payer SELFPAY ==
[2018-03-25 16:31] VITALS: BMI 27.7
[2018-04-20 08:58] LABS: BUN Creatinine Ratio 22.1 (6-22); Blood Urea Nitrogen 31 mg/dL (9-20); Calcium 8.7 mg/dL (8.4-10.2); Carbon Dioxide 21 mmol/L (22-32); Chloride 110 mmol/L (98-107); Glucose 82 mg/dL (80-110); HEMOLYSIS < 15 (0-50); Sodium 144 mmol/L (137-145)
== END ==
LOC: LAB 08:01
PROVIDERS: PCP Physician Assistant; Visit Provider Nurse Practitioner Family
DX: Z51.81 Encounter for therapeutic drug level monitoring (principal)
CPT/HCPCS: 80048

== ENCOUNTER → 2018-04-20 09:21 | Outpatient (CLI) | payer MEDICARE, SELFPAY ==
[2018-03-25 16:31] VITALS: BMI 27.7
== END ==
PROVIDERS: PCP Physician Assistant; Visit Provider Family Medicine
DX: E11.621 Type 2 diabetes mellitus with foot ulcer (principal); L97.522 Non-pressure chronic ulcer of other part of left foot with fat layer exposed; L02.612 Cutaneous abscess of left foot
CPT/HCPCS: 11042

== ENCOUNTER → 2018-04-25 07:45 | Outpatient (REF) | payer MEDICARE, SELFPAY ==
[2018-03-25 16:31] VITALS: BMI 27.7
[2018-04-25 10:08] LABS: Vancomycin Trough 20.6 ug/mL (10-20)
== END ==
LOC: LAB 07:45
PROVIDERS: PCP Physician Assistant; Visit Provider Hospitalist
DX: L97.509 Non-pressure chronic ulcer of other part of unspecified foot with unspecified severity (principal); L03.119 Cellulitis of unspecified part of limb
CPT/HCPCS: 80202

== ENCOUNTER → 2018-04-27 13:08 | Outpatient (CLI) | payer MEDICARE, SELFPAY ==
[2018-03-25 16:31] VITALS: BMI 27.7
== END ==
PROVIDERS: PCP Physician Assistant; Visit Provider Family Medicine
DX: E11.621 Type 2 diabetes mellitus with foot ulcer (principal); L97.522 Non-pressure chronic ulcer of other part of left foot with fat layer exposed
CPT/HCPCS: 11042

== ENCOUNTER → 2018-05-04 14:55 | Outpatient (CLI) | payer MEDICARE, SELFPAY ==
[2018-03-25 16:31] VITALS: BMI 27.7
== END ==
PROVIDERS: PCP Physician Assistant; Visit Provider Family Medicine
DX: E11.621 Type 2 diabetes mellitus with foot ulcer (principal); L97.511 Non-pressure chronic ulcer of other part of right foot limited to breakdown of skin
CPT/HCPCS: 11042; 87070; 87075; 87077; 87147; 87186; 87205

== ENCOUNTER → 2018-05-11 13:27 | Outpatient (CLI) | payer MEDICARE, SELFPAY ==
[2018-03-25 16:31] VITALS: BMI 27.7
== END ==
PROVIDERS: PCP Physician Assistant; Visit Provider Family Medicine
DX: E11.621 Type 2 diabetes mellitus with foot ulcer (principal); L97.522 Non-pressure chronic ulcer of other part of left foot with fat layer exposed; L02.612 Cutaneous abscess of left foot; A49.02 Methicillin resistant Staphylococcus aureus infection, unspecified site
CPT/HCPCS: 11042; 99213

== ENCOUNTER → 2018-05-18 13:11 | Outpatient (CLI) | payer MEDICARE, SELFPAY ==
[2018-03-25 16:31] VITALS: BMI 27.7
== END ==
PROVIDERS: PCP Physician Assistant; Visit Provider Family Medicine
DX: E11.621 Type 2 diabetes mellitus with foot ulcer (principal); L97.522 Non-pressure chronic ulcer of other part of left foot with fat layer exposed; L02.612 Cutaneous abscess of left foot; A49.02 Methicillin resistant Staphylococcus aureus infection, unspecified site
CPT/HCPCS: 97597

== ENCOUNTER → 2018-05-25 13:41 | Outpatient (CLI) | payer MEDICARE, SELFPAY ==
[2018-03-25 16:31] VITALS: BMI 27.7
== END ==
PROVIDERS: PCP Physician Assistant; Visit Provider Family Medicine
DX: E11.621 Type 2 diabetes mellitus with foot ulcer (principal); L97.522 Non-pressure chronic ulcer of other part of left foot with fat layer exposed; L02.612 Cutaneous abscess of left foot
CPT/HCPCS: 11042; 87070; 87075; 87077; 87147; 87186; 87205

== ENCOUNTER → 2018-06-01 13:09 | Outpatient (CLI) | payer MEDICARE, SELFPAY ==
[2018-03-25 16:31] VITALS: BMI 27.7
== END ==
PROVIDERS: PCP Physician Assistant; Visit Provider Family Medicine
DX: E11.621 Type 2 diabetes mellitus with foot ulcer (principal); L97.522 Non-pressure chronic ulcer of other part of left foot with fat layer exposed; L02.612 Cutaneous abscess of left foot; A49.02 Methicillin resistant Staphylococcus aureus infection, unspecified site
CPT/HCPCS: 99213

== ENCOUNTER → 2018-06-08 15:07 | Outpatient (CLI) | payer MEDICARE, SELFPAY ==
[2018-03-25 16:31] VITALS: BMI 27.7
== END ==
PROVIDERS: PCP Physician Assistant; Visit Provider Family Medicine
DX: E11.621 Type 2 diabetes mellitus with foot ulcer (principal); L97.522 Non-pressure chronic ulcer of other part of left foot with fat layer exposed; L02.612 Cutaneous abscess of left foot; A49.02 Methicillin resistant Staphylococcus aureus infection, unspecified site
CPT/HCPCS: 11042

== ENCOUNTER → 2018-06-15 10:47 | Outpatient (CLI) | payer MEDICARE, SELFPAY ==
[2018-03-25 16:31] VITALS: BMI 27.7
== END ==
PROVIDERS: PCP Physician Assistant; Visit Provider Family Medicine
DX: E11.621 Type 2 diabetes mellitus with foot ulcer (principal); L97.522 Non-pressure chronic ulcer of other part of left foot with fat layer exposed; A49.02 Methicillin resistant Staphylococcus aureus infection, unspecified site
CPT/HCPCS: 11042; 87070; 87075; 87077; 87186; 87205

== ENCOUNTER → 2018-06-22 13:10 | Outpatient (CLI) | payer MEDICARE, SELFPAY ==
[2018-03-25 16:31] VITALS: BMI 27.7
== END ==
PROVIDERS: PCP Physician Assistant; Visit Provider Family Medicine
DX: E11.621 Type 2 diabetes mellitus with foot ulcer (principal); L97.521 Non-pressure chronic ulcer of other part of left foot limited to breakdown of skin
CPT/HCPCS: 97597

== ENCOUNTER → 2018-06-29 13:07 | Outpatient (CLI) | payer MEDICARE, SELFPAY ==
[2018-03-25 16:31] VITALS: BMI 27.7
== END ==
PROVIDERS: PCP Physician Assistant; Visit Provider Family Medicine
DX: E11.621 Type 2 diabetes mellitus with foot ulcer (principal); L97.522 Non-pressure chronic ulcer of other part of left foot with fat layer exposed; L02.612 Cutaneous abscess of left foot
CPT/HCPCS: 99213

== ENCOUNTER → 2018-07-06 13:51 | Outpatient (CLI) | payer MEDICARE, SELFPAY ==
[2018-03-25 16:31] VITALS: BMI 27.7
== END ==
PROVIDERS: PCP Physician Assistant; Visit Provider Family Medicine
DX: E11.621 Type 2 diabetes mellitus with foot ulcer (principal); L97.521 Non-pressure chronic ulcer of other part of left foot limited to breakdown of skin
CPT/HCPCS: 97597

== ENCOUNTER → 2018-07-13 13:14 | Outpatient (CLI) | payer MEDICARE, SELFPAY ==
[2018-03-25 16:31] VITALS: BMI 27.7
== END ==
PROVIDERS: PCP Physician Assistant; Visit Provider Family Medicine
DX: Z48.817 Encounter for surgical aftercare following surgery on the skin and subcutaneous tissue (principal); E11.9 Type 2 diabetes mellitus without complications
CPT/HCPCS: 99212

== ENCOUNTER → 2019-09-26 10:17 | Outpatient (CLI) | payer OTHER, SELFPAY ==
[2018-03-25 16:31] VITALS: BMI 27.7
[2019-09-26 12:45] LABS: Alanine Aminotransferase 21 IU/L (<50); Albumin 4.3 g/dL (3.5-5.0); Albumin Globulin Ratio 1.2 (1.0-2.8); Alkaline Phosphatase 93 U/L (38-126); Aspartate Aminotransferase 36 IU/L (17-59); BUN Creatinine Ratio 21.5 (6-22); Bilirubin Total 0.5 mg/dL (0.2-1.3); Blood Urea Nitrogen 46 mg/dL (9-20); Calcium 9.5 mg/dL (8.4-10.2); Carbon Dioxide 19 mmol/L (22-32); Chloride 110 mmol/L (98-107); Cholesterol 120 mg/dL (140-199); Estimated Glomerular Filt Rate 30.4 mL/min (>60); Globulin 3.5 g/dL (1.7-4.1); Glucose 103 mg/dL (80-110); HDL Cholesterol 24 mg/dL (40-60); HEMOLYSIS < 15 (0-50); LDL Cholesterol Calculated 63 mg/dL (<100); Potassium 4.3 mmol/L (3.4-5.1); Sodium 142 mmol/L (137-145); Total Protein 7.8 g/dL (6.3-8.2); Triglycerides 167 mg/dL (35-150)
[2019-09-26 12:59] LABS: Microalbumin Urine Random 13.6 mg/dL (0-1.6)
[2019-09-26 15:28] LABS: Creatinine Urine Random 80.4 mg/dL; Microalbumi Creatinin Ratio Ur 169.1 ug/mg CR (<30)
== END ==
PROVIDERS: PCP Internal Medicine; Referring Provider Internal Medicine; Visit Provider Internal Medicine
DX: E11.9 Type 2 diabetes mellitus without complications (principal); E78.2 Mixed hyperlipidemia
CPT/HCPCS: 36415; 80053; 80061; 82043; 82570; 83036

== ENCOUNTER 2022-02-06 23:21 | Emergency (ER) | payer OTHER, SELFPAY ==
[2018-03-25 16:31] VITALS: BMI 27.7
[2022-02-06 23:27] VITALS: BP 216/95; PULSE 97; RESP 18; TEMP 36.6; O2SAT 98; BMI 26.6
--- NOTE | 2022-02-06 23:42 | ED_ITS ---
HPI - General Adult General Chief complaint: Nasal Problem Stated complaint: Sinus infection Time Seen by Provider: 02/06/22 23:34 Source: patient Mode of arrival: Ambulatory History of Present Illness HPI narrative: 76-year-old male nonsmoker with history of diabetes presents with concern for sinus infection. He states he is had subjective fever and left-sided facial pain with occasional cough over the past 10 days. He is had bacterial sinusitis multiple times in the past and states this feels similar. He is tried various [id number] cough, cold and flu medications over the past week with little to no improvement. He denies any chest pain or shortness of breath. He has no nausea, vomiting or diarrhea. Related Data Home Medications Medication Instructions Recorded Confirmed Vancomycin Hcl Solution 900 mg PO DAILY osteo 03/25/18 03/25/18 acetaminophen 500 mg tablet 1,000 mg PO BID pain 03/25/18 03/25/18 bisacodyl 10 mg rectal suppository 10 mg NV DAILY PRN Constipation 03/25/18 03/25/18 bisacodyl 5 mg tablet,delayed 5 mg PO PRN PRN Constipation 03/25/18 03/25/18 release insulin lispro 100 unit/mL SUBCUT ACHS 03/25/18 subcutaneous pen magnesium hydroxide 400 mg/5 mL 30 ml PO PRN PRN Constipation 03/25/18 03/25/18 oral suspension (Milk of Magnesia) sodium phosphates 19 gram-7 NV PRN Constipation 03/25/18 gram/118 mL enema (Fleet Enema) Previous Rx's Medication Instructions Recorded acetaminophen 325 mg tablet 650 mg PO Q6HR PRN As Needed For 03/21/18 Fever/Mild Pain #30 tabs docusate sodium 100 mg capsule 100 mg PO BID #30 caps 03/21/18 sennosides 8.6 mg tablet (senna) 17.2 mg PO BEDTIME #30 tabs 03/21/18 atorvastatin 20 mg tablet (Lipitor) 40 mg PO BEDTIME #60 tabs 03/26/18 lisinopril 20 mg tablet 20 mg PO DAILY #30 tabs 03/26/18 oxycodone 10 mg tablet 10 mg PO Q8H PRN Back Pain #20 tabs 03/26/18 amoxicillin 875 mg-potassium 1 tab PO Q12H #20 tabs 10/07/22 clavulanate 125 mg tablet Allergies Allergy/AdvReac Type Severity Reaction Status Date / Time dexamethasone Allergy Verified 02/06/22 23:33 quinine Allergy Verified 02/06/22 23:33 Sulfa (Sulfonamide Allergy Verified 02/06/22 23:33 Antibiotics) Review of Systems Review of Systems Narrative: GENERAL: Denies chills, fatigue, malaise, fever, sweats. HEENT: See HPI RESPIRATORY: Denies dyspnea, cough, wheezing, hemoptysis, sputum. CARDIOVASCULAR: Denies chest pain, palpitations, orthopnea, edema, GASTROINTESTINAL: Denies nausea, vomiting, abdominal pain, diarrhea, constipation, melena. : Denies dysuria, frequency, incontinence, hematuria, urinary retention. MUSCULOSKELETAL: denies weakness, joint pain, or bony pain SKIN: Denies rash, skin lesions, or other NEUROLOGIC: Denies weakness, headache, numbness, change in speech, confusion, se izures, incoordination. PSYCHIATRIC: No concerning psychosocial issues. 12 point review of systems is negative except for those stated above Patient History Medical History Hx of rheumatic fever Osteomyelitis TIA (transient ischemic attack) Family History Father Alcoholism /alcohol abuse Sister Brain aneurysm Mother CAD (coronary artery disease) Social History household members: friend(s) Smoking Status: Never smoker alcohol intake: never Smoking Status: Never smoker alcohol intake frequency: 0-2 drinks per day Substance Use Type: does not use Exam Narrative Exam Narrative: GENERAL: [76] year old patient appears stated age. Well-developed patient, in mild distress. HEAD: Atraumatic. Normocephalic. EYES: Pupils equal round and reactive. Extraocular motions intact. No scleral icterus. No injection or drainage. ENT: Nose without bleeding, purulent drainage. Throat without erythema, tonsillar hypertrophy or exudate. Airway patent. Left tympanic membrane with a clear effusion in the absence of bulging, erythema or opacification. Patient is tender to palpation over left maxillary sinus there is evidence of minimal purulent discharge NECK: Trachea midline. Non tender CARDIOVASCULAR: Regular rate and rhythm without murmurs, gallops, or rubs. RESPIRATORY: Clear to auscultation. Breath sounds equal bilaterally. No wheezes, rales, or rhonchi. GASTROINTESTINAL: Abdomen soft, non-tender, nondistended. EXTREMITIES: No edema or joint tenderness. BACK: Nontender without deformity or crepitance. No flank tenderness. NEURO: AOx3. SKIN: No rash or erythema of visible areas Initial Vital Signs Initial Vital Signs: Vital Signs Temperature 97.8 F 02/06/22 23:27 Pulse Rate 97 H 02/06/22 23:27 Respiratory Rate 18 02/06/22 23:27 Blood Pressure 216/95 H 02/06/22 23:27 Pulse Oximetry 98 02/06/22 23:27 Oxygen Delivery Method 02/06/22 23:27 Course Course Course Narrative: #331 & 332: Antibiotic use with Sinusitis *if the second, third, or fourth prompt is selected, only then should the clinician see the sub-prompts addressing amoxicillin [] The patient has sinusitis and antibiotics are not indicated/not prescribed at this time. [SATISFIES MIPS PERFORMANCE] [x] The patient has sinusitis with symptom onset greater than 10 days ago and the patient was prescribed antibiotics. [SATISFIES MIPS PERFORMANCE] [x] Patient was prescribed an amoxicillin-based antibiotic. [] Patient was prescribed a non amoxicillin-based antibiotic because [] (ex. allergy, intolerance, secondary infection like Acute Pharyngitis, Cellulitis, UTI) [] Patient was prescribed a non amoxicillin-based antibiotic. [] The patient has sinusitis and was prescribed antibiotics because [] (ex. patient?s symptoms worsened after initial improvement, patient has secondary infection, patient is immunocompromised) [MIPS PERFORMANCE EXCEPTION/EXCLUSION] [] Patient was prescribed an amoxicillin-based antibiotic. [] Patient was prescribed a non amoxicillin-based antibiotic because [] (ex. allergy, intolerance, secondary infection like Acute Pharyngitis, Cellulitis, UTI) [] Patient was prescribed a non amoxicillin-based antibiotic. [] The patient has sinusitis with symptom onset less than or equal to 10 ago days and antibiotics WERE prescribed. [DOES NOT SATISFY MIPS PERFORMANCE] [] Patient was prescribed an amoxicillin-based antibiotic. [] Patient was prescribed a non amoxicillin-based antibiotic because [] (ex. allergy, intolerance, secondary infection like Acute Pharyngitis, Cellulitis, UTI) [] Patient was prescribed a non amoxicillin-based antibiotic. Orders Ordered: ED Orders 02/06/22 23:33 COVID19 -Nasal RAPID/Pre-Proc Stat Vital Signs Vital signs: Vital Signs - 8 hr 02/06/22 23:27 Temperature 97.8 F Pulse Rate 97 H Respiratory Rate 18 Blood Pressure 216/95 H Pulse Oximetry 98 Oxygen Delivery Method Room Air Medical Decision Making Lab Data Labs: Lab Results 02/06/22 Range/Units 23:33 SARS-CoV-2 (PCR) Negative (Negative) Discharge Plan Departure Patient Disposition: Home Clinical Impression: Acute bacterial sinusitis Instructions: DI for Sinusitis Activity Restrictions/Additional Instructions: *You have been diagnosed with [acute bacterial rhinosinusitis] *What to do: *Please continue to take your regular medications as directed. [x ] New medication prescriptions sent to your pharmacy: [[facility] ] [ ] New medication written as a paper prescription [ ] No new medications given *Please follow up with your primary care provider in 2-3 days, call for an appointment. Let them know you were seen in the Emergency Department and that we ask that you be seen in follow up. We will electronically transmit a record of today's note if your PCP is in our system *Return to Emergency Department if you should have any new, worsening or concerning symptoms, such as [fever greater than 101 F, shaking chills, worsening pain, persistent vomiting or other bothersome symptoms] Prescriptions: New amoxicillin-pot clavulanate 875-125 mg tablet 1 tab PO Q12H Qty: 20 0RF No Action sennosides [senna] 8.6 mg Tablet 17.2 mg PO BEDTIME Qty: 30 0RF acetaminophen 325 mg Tablet 650 mg PO Q6HR PRN (Reason: As Needed For Fever/Mild Pain) Qty: 30 0RF docusate sodium 100 mg Capsule 100 mg PO BID Qty: 30 0RF acetaminophen 500 mg Tablet 1,000 mg PO BID magnesium hydroxide [Milk of Magnesia] 400 mg/5 mL Suspension 30 ml PO PRN PRN (Reason: Constipation) bisacodyl 10 mg Suppository 10 mg NV DAILY PRN (Reason: Constipation) sodium phosphates [Fleet Enema] 19-7 gram/118 mL Enema NV PRN (Reason: Constipation) bisacodyl 5 mg Tablet,Delayed Release (Dr/Ec) 5 mg PO PRN PRN (Reason: Constipation) insulin lispro 100 unit/mL Insulin Pen subcut ACHS Rx Instructions: sliding scale-give subcutaneously ACHS; 151-250 : give 5 units 251-350 : give 10 units 351-450 : give 15 units Vancomycin Hcl Solution 900 mg PO DAILY lisinopril 20 mg Tablet 20 mg PO DAILY Qty: 30 0RF atorvastatin [Lipitor] 20 mg Tablet 40 mg PO BEDTIME Qty: 60 0RF oxycodone 10 mg tablet 10 mg PO Q8H PRN (Reason: Back Pain) Qty: 20 0RF Referrals: Chloé Nguyen PA-C [Primary Care Provider] - Visit Report Forms: Patient Portal/API
[2022-02-06 23:57] LABS: COVID19 -Nasal RAPID Negative (Negative)
== END 2022-02-06 23:58 | disposition home or self-care (01) ==
PROVIDERS: Emergency Provider Emergency Medicine; PCP Physician Assistant
DX: J01.90 Acute sinusitis, unspecified (principal); Z20.822 Contact with and (suspected) exposure to COVID-19
CPT/HCPCS: 87635; 99281; 99282; C9803

== ENCOUNTER 2023-02-09 14:02 | Outpatient (RCR) | payer MEDICARE, SELFPAY ==
[2018-03-25 16:31] VITALS: BMI 27.7
--- NOTE | 2023-02-09 15:14 | PT.OIE ---
Current Diagnoses Spinal stenosis, lumbar region with neurogenic claudication (02/09/23) Strain of muscle, fascia and tendon of lower back, subsequent encounter (02/09/23) Past Medical History (Last Reviewed 02/06/22 @ 23:43 by Vincent Arrington DO) Hx of rheumatic fever Osteomyelitis TIA (transient ischemic attack) Visit Care Team Role Provider Type Cholé Nguyen PA-C Family Provider Non-Staff Primary Care Provider Specialty: Internal Medicine Address: [address] [facility] [address], [place], [address] Email: Charlie Sim MD Attending Provider Physician Referring Provider Specialty: Orthopedic Surgery Address: [address] [facility] [facility], [place], [address] Email: Physical Therapy Initial Evaluation PT-OP-A Visit Information Start: 02/09/23 14:16 Freq: Status: Active Protocol: Document 02/09/23 15:01 ED (Rec: 02/09/23 15:14 ED [id number]) Out-Patient Physical Therapy Visit Information Visit Information Visit Type Initial Evaluation Visit Start Time 14:15 Visit Stop Time 15:00 Total Visit Minutes 45 Visit Number 1 Evaluation Information Evaluation Date 02/09/23 PT-OP-B Current Condition Start: 02/09/23 14:16 Freq: Status: Active Protocol: Document 02/09/23 15:01 ED (Rec: 02/09/23 15:14 ED [id number]) Current Condition History of Current Condition Onset Date 2008 Current Complaints chronic low back pain History of Current Condition Pt states that he has had low back pain since 2008. He states that he was holding something large while at work and then had a sudden attack of low back pain that has impacted him ever since. He states that it has impacted his ability to be active or work a normal schedule. He does volunteer sometimes. He states that he can be depressed at times as he doesn 't have a lot going on in his life and the days are all the same. Pt ambulates with a SPC. he notes he is also limited by knee pain and weakness. He was offered surgery for his back but declined. He also mentions having R radicular pain at times. He denies any changes in strength in his LEs . Treatment Goals Patient/Caregiver Goals Decrease low back pain and do stairs easily PT-OP-C Subjective Start: 02/09/23 14:16 Freq: Status: Active Protocol: Document 02/09/23 15:01 ED (Rec: 02/09/23 15:14 ED [id number]) Patient Questionnaires Oswestry Low Back Index Oswestry Score 26 / 50 = 52.0 % Oswestry Impairment 20 to 39% Impaired (Score 20- 39) OP-PT Pain Assessment Location Right Lower Back Pain Location Details central thoracolumbar pain; sometimes down R LE Intensity 7 Scale Used Numeric (0 - 10) PT-OP-E Functional Tests Start: 02/09/23 14:16 Freq: Status: Active Protocol: Document 02/09/23 15:01 ED (Rec: 02/09/23 15:14 ED [id number]) Functional Tests 30 Second Sit to Stand Test Score 6 Comments normal (11-17) PT-OP-K Range of Motion Start: 02/09/23 14:16 Freq: Status: Active Protocol: Document 02/09/23 15:01 ED (Rec: 02/09/23 15:14 ED [id number]) Lumbar Spine Range of Motion Lumbar Spine Active Percentage Testing Position Sitting Flexion 10 Extension 0 Rotation Left 10 Rotation Right 10 ROM Limitations Soft Tissue Tightness,Muscle Tone,Pain PT-OP-L Special Tests Start: 02/09/23 14:16 Freq: Status: Active Protocol: Document 02/09/23 15:01 ED (Rec: 02/09/23 15:14 ED [id number]) Special Tests Lumbar Spine Special Tests Standing Flexion Test Results + PT-OP-T Assessment and Plan Start: 02/09/23 14:16 Freq: Status: Active Protocol: Document 02/09/23 15:01 ED (Rec: 02/09/23 15:14 ED [id number]) Physical Therapy Assessment Rehab Potential Rehabilitation Potential Fair Evaluation Complexity Number of Personal Factors/Comorbidities 1-2 Number of Body Systems Impaired 3 Clinical Presentation at Evaluation Stable Impairments Impairments Activity Tolerance,Balance, Functional Activities, Functional Mobility,Pain, Posture,ROM,Sensation,Soft Tissue Mobility,Strength Goals Oswestry Impairment Oswestry score Impairment IE: 26 / 50 = 52.0 % Longterm Goal (LTG) Pt will improve Oswestry score by 10 points to a score <16/ 50. LTG Duration 6-8 weeks 30 second STS Impairment 30 second sit<>stand Impairment IE: 6 reps normal: 11-17 Short Term Goal (STG) Pt will be able to record 9 sit<>stands in 30 seconds. STG Duration 3 weeks Longterm Goal (LTG) Pt will be able to record 11 sit<>stands in 30 seconds. LTG Duration 6-8 weeks lumbar flexion Impairment limited lumbar flexion Short Term Goal (STG) Pt will be able to perform multiple sets of seated lumbar flexion with UE support without low back pain. STG Duration 3 weeks. Photo Tech Goal (LTG) Pt will be able to bend over and touch knees with motion coming primarily from spine without pain. LTG Duration 6-8 weeks HEP Impairment HEP Short Term Goal (STG) Pt will report performing HEP >3 days/week. STG Duration 3 weeks Photo Tech Goal (LTG) Pt will report performing HEP >3 days/week. LTG Duration 6-8 weeks Assessment Summary Assessment Pt reported to PT for chronic low back pain since about 2008 . Pt currently ambulates using a SPC secondary to decreased balance and knee pain. Pt demonstrated markedly decreased lumbar ROM especially into flexion; patient unable to roller picker item off ground without assistance during evaluation today. Pt able to perform 6 sit<>stands during 30 second sit<>stand test; normal for his age and sex is 11-17 repetitions. Pain is likely due to a combination of factors such as previous tissue injury but also secondary to decreased quality of life and mood, increased sedentary time, and learned behavior from the chronicity of pain. PT will be performed within patient tolerance in regards to exercises and progressed appropriately. PT provided initial HEP of: short daily walks, repeated sit<>stands, seated lumbar flexion, and banded rows. Physical Therapy Plan Frequency and Duration Frequency of Treatment 2x/Week Duration of treatment (weeks) 10 Plan of Care Start Date 02/09/23 Plan of Care End Date 05/10/23 Therapeutic Interventions Therapeutic Interventions Gait Training,Home Exercise Program,Joint Mobilizations, Manual Therapy,Neuromuscular Re-education,Orthotic/ Prosthetic Management,Patient/ Caregiver Education,Self-Care/ Home Management,Soft Tissue Mobilization,Taping, Therapeutic Activities, Therapeutic Exercises Next Visit Focus/Plan Next Note Type Treatment Note Next Visit Plan elliptical?, (PB flexion, STS, row), step ups, hanging squat
--- NOTE | 2023-02-09 15:14 | PT.OPPOC ---
Physical, Occupational & Speech Therapy At [facility] Current Diagnoses Spinal stenosis, lumbar region with neurogenic claudication (02/09/23) Strain of muscle, fascia and tendon of lower back, subsequent encounter (02/09/23) Visit Care Team Role Provider Type Chloé Nguyen PA-C Family Provider Non-Staff Primary Care Provider Specialty: Internal Medicine Address: [address] [facility], [place], [address] Email: Charlie Sim MD Attending Provider Physician Referring Provider Specialty: Orthopedic Surgery Address: [address] [facility], [place], [address] Email: Plan Of Care PT-OP-T Assessment and Plan Start: 02/09/23 14:16 Freq: Status: Active Protocol: Document 02/09/23 15:01 ED (Rec: 02/09/23 15:14 ED [id number]) Physical Therapy Assessment Rehab Potential Rehabilitation Potential Fair Evaluation Complexity Number of Personal Factors/Comorbidities 1-2 Number of Body Systems Impaired 3 Clinical Presentation at Evaluation Stable Impairments Impairments Activity Tolerance,Balance, Functional Activities, Functional Mobility,Pain, Posture,ROM,Sensation,Soft Tissue Mobility,Strength Goals Oswestry Impairment Oswestry score Impairment IE: 26 / 50 = 52.0 % Traffic Lieutenant Goal (LTG) Pt will improve Oswestry score by 10 points to a score <16/ 50. LTG Duration 6-8 weeks 30 second STS Impairment 30 second sit<>stand Impairment IE: 6 reps normal: 11-17 Short Term Goal (STG) Pt will be able to record 9 sit<>stands in 30 seconds. STG Duration 3 weeks Usp Goal (LTG) Pt will be able to record 11 sit<>stands in 30 seconds. LTG Duration 6-8 weeks lumbar flexion Impairment limited lumbar flexion Short Term Goal (STG) Pt will be able to perform multiple sets of seated lumbar flexion with UE support without low back pain. STG Duration 3 weeks. Usp Goal (LTG) Pt will be able to bend over and touch knees with motion coming primarily from spine without pain. LTG Duration 6-8 weeks HEP Impairment HEP Short Term Goal (STG) Pt will report performing HEP >3 days/week. STG Duration 3 weeks Usp Goal (LTG) Pt will report performing HEP >3 days/week. LTG Duration 6-8 weeks Assessment Summary Assessment Pt reported to PT for chronic low back pain since about 2008 . Pt currently ambulates using a SPC secondary to decreased balance and knee pain. Pt demonstrated markedly decreased lumbar ROM especially into flexion; patient unable to pick up driver item off ground without assistance during evaluation today. Pt able to perform 6 sit<>stands during 30 second sit<>stand test; normal for his age and sex is 11-17 repetitions. Pain is likely due to a combination of factors such as previous tissue injury but also secondary to decreased quality of life and mood, increased sedentary time, and learned behavior from the chronicity of pain. PT will be performed within patient tolerance in regards to exercises and progressed appropriately. PT provided initial HEP of: short daily walks, repeated sit<>stands, seated lumbar flexion, and banded rows. Physical Therapy Plan Frequency and Duration Frequency of Treatment 2x/Week Duration of treatment (weeks) 10 Plan of Care Start Date 02/09/23 Plan of Care End Date 05/10/23 Therapeutic Interventions Therapeutic Interventions Gait Training,Home Exercise Program,Joint Mobilizations, Manual Therapy,Neuromuscular Re-education,Orthotic/ Prosthetic Management,Patient/ Caregiver Education,Self-Care/ Home Management,Soft Tissue Mobilization,Taping, Therapeutic Activities, Therapeutic Exercises Next Visit Focus/Plan Next Note Type Treatment Note Next Visit Plan elliptical?, (PB flexion, STS, row), step ups, hanging squat Plan of Care Dates Plan of Care Start Date 02/09/23 Plan of Care End Date 05/10/23 Electronically Signed by: Kashif Kaur, PT 02/09/23 0741 If you are in agreement with this Plan of Care, please return a signed and dated copy. I have reviewed this Plan of Care and certify that the skilled therapy services above are required to meet the patient?s needs. Physician Signature Date Printed Name and Credentials Clinical Instructor Signature Printed Name and Credentials
--- NOTE | 2023-03-09 10:15 | PT.OPDS ---
Current Diagnoses Spinal stenosis, lumbar region with neurogenic claudication (02/09/23) Strain of muscle, fascia and tendon of lower back, subsequent encounter (02/09/23) Visit Care Team Role Provider Type Chloé Nguyen PA-C Family Provider Non-Staff Primary Care Provider Specialty: Internal Medicine Address: [address] [facility], [place], [address] Email: Charlie Sim MD Attending Provider Physician Referring Provider Specialty: Orthopedic Surgery Address: [address] [facility], [place], [address] Email: Visit Number Visit Number 1 Discharge Summary PT-OP-B Current Condition Start: 02/09/23 14:16 Freq: Status: Active Protocol: Document 02/09/23 15:01 ED (Rec: 02/09/23 15:14 ED [id number]) Current Condition History of Current Condition Onset Date 2008 Current Complaints chronic low back pain History of Current Condition Pt states that he has had low back pain since 2008. He states that he was holding something large while at work and then had a sudden attack of low back pain that has impacted him ever since. He states that it has impacted his ability to be active or work a normal schedule. He does volunteer sometimes. He states that he can be depressed at times as he doesn 't have a lot going on in his life and the days are all the same. Pt ambulates with a SPC. he notes he is also limited by knee pain and weakness. He was offered surgery for his back but declined. He also mentions having R radicular pain at times. He denies any changes in strength in his LEs . Treatment Goals Patient/Caregiver Goals Decrease low back pain and do stairs easily PT-OP-C Subjective Start: 02/09/23 14:16 Freq: Status: Active Protocol: Document 02/09/23 15:01 ED (Rec: 02/09/23 15:14 ED [id number]) Patient Questionnaires Oswestry Low Back Index Oswestry Score 26 / 50 = 52.0 % Oswestry Impairment 20 to 39% Impaired (Score 20- 39) OP-PT Pain Assessment Location Right Lower Back Pain Location Details central thoracolumbar pain; sometimes down R LE Intensity 7 Scale Used Numeric (0 - 10) PT-OP-E Functional Tests Start: 02/09/23 14:16 Freq: Status: Active Protocol: Document 02/09/23 15:01 ED (Rec: 02/09/23 15:14 ED [id number]) Functional Tests 30 Second Sit to Stand Test Score 6 Comments normal (11-17) PT-OP-K Range of Motion Start: 02/09/23 14:16 Freq: Status: Active Protocol: Document 02/09/23 15:01 ED (Rec: 02/09/23 15:14 ED [id number]) Lumbar Spine Range of Motion Lumbar Spine Active Percentage Testing Position Sitting Flexion 10 Extension 0 Rotation Left 10 Rotation Right 10 ROM Limitations Soft Tissue Tightness,Muscle Tone,Pain PT-OP-L Special Tests Start: 02/09/23 14:16 Freq: Status: Active Protocol: Document 02/09/23 15:01 ED (Rec: 02/09/23 15:14 ED [id number]) Special Tests Lumbar Spine Special Tests Standing Flexion Test Results + PT-OP-T Assessment and Plan Start: 02/09/23 14:16 Freq: Status: Active Protocol: Document 03/09/23 10:14 ED (Rec: 03/09/23 10:15 ED [id number]) Physical Therapy Assessment Goals Oswestry Impairment Oswestry score Impairment IE: 26 / 50 = 52.0 % Usp Goal (LTG) Pt will improve Oswestry score by 10 points to a score <16/ 50. LTG Duration 6-8 weeks 30 second STS Impairment 30 second sit<>stand Impairment IE: 6 reps normal: 11-17 Short Term Goal (STG) Pt will be able to record 9 sit<>stands in 30 seconds. STG Duration 3 weeks Usp Goal (LTG) Pt will be able to record 11 sit<>stands in 30 seconds. LTG Duration 6-8 weeks lumbar flexion Impairment limited lumbar flexion Short Term Goal (STG) Pt will be able to perform multiple sets of seated lumbar flexion with UE support without low back pain. STG Duration 3 weeks. Usp Goal (LTG) Pt will be able to bend over and touch knees with motion coming primarily from spine without pain. LTG Duration 6-8 weeks HEP Impairment HEP Short Term Goal (STG) Pt will report performing HEP >3 days/week. STG Duration 3 weeks Usp Goal (LTG) Pt will report performing HEP >3 days/week. LTG Duration 6-8 weeks Assessment Summary Assessment Pt has only been since for initial evaluation which was on 02/09/23. Pt subsequently cancelled or no-showed his other scheduled visits. Pt will be discharged at this time d/t lack of attendence. Physical Therapy Plan Discharge Physical Therapy Discharge Reasons No Longer Attending PT
--- NOTE | 2023-03-09 10:15 | PT-OP ANOTE ---
PT left VM for patient for discharging from PT d/t attendance issues and no further scheduled visits.
== END 2023-03-11 14:47 | disposition home or self-care (01) ==
LOC: PHYS 14:02
PROVIDERS: Absent Provider Physician Assistant; Family Provider Physician Assistant; PCP Physician Assistant; Referring Provider Orthopaedic Surgery; Visit Provider Orthopaedic Surgery
DX: M48.062 Spinal stenosis, lumbar region with neurogenic claudication (principal); S39.012D Strain of muscle, fascia and tendon of lower back, subsequent encounter
CPT/HCPCS: 97162

== ENCOUNTER 2023-04-10 13:28 | Emergency (ER) | payer MEDICARE, SELFPAY ==
[2018-03-25 16:31] VITALS: BMI 27.7
[2023-04-10 13:44] VITALS: BP 138/85; PULSE 89; RESP 16; TEMP 36.4; O2SAT 99; BMI 27.4
--- NOTE | 2023-04-10 13:50 | ED.URI ---
HPI - URI/Sore Throat <Diomedes Brunner PA-C - Last Filed: 04/10/23 13:58> General Chief Complaint: Upper Respiratory Symptoms Stated Complaint: states sinus infection Time Seen by Provider: 04/10/23 13:45 Source: patient Mode of arrival: Ambulatory History of Present Illness HPI Narrative: This is a 77-year-old male presents to the emergency department due to sinus pain and pressure, productive cough with yellow mucus, right earache for the last 10 days. States it feels very similar to a sinus infection he had about a year ago. States that you received antibiotics last year in his requesting the same. Denies any chest pain, shortness of breath, fevers, or any other concerning signs or symptoms. Related Data Home Medications Medication Instructions Recorded Confirmed acetaminophen 500 mg tablet 1,000 mg PO BID pain 03/25/18 03/25/18 bisacodyl 10 mg rectal suppository 10 mg KS DAILY PRN Constipation 03/25/18 03/25/18 bisacodyl 5 mg tablet,delayed 5 mg PO PRN PRN Constipation 03/25/18 03/25/18 release insulin lispro 100 unit/mL SUBCUT ACHS 03/25/18 subcutaneous pen magnesium hydroxide 400 mg/5 mL 30 ml PO PRN PRN Constipation 03/25/18 03/25/18 oral suspension (Milk of Magnesia) sodium phosphates 19 gram-7 KS PRN Constipation 03/25/18 gram/118 mL enema (Fleet Enema) Previous Rx's Medication Instructions Recorded acetaminophen 325 mg tablet 650 mg (2 x 325 mg) PO Q6HR PRN As 03/21/18 Needed For Fever/Mild Pain #30 tabs docusate sodium 100 mg capsule 100 mg PO BID #30 caps 03/21/18 sennosides 8.6 mg tablet (senna) 17.2 mg (2 x 8.6 mg) PO BEDTIME 03/21/18 #30 tabs atorvastatin 20 mg tablet (Lipitor) 40 mg (2 x 20 mg) PO BEDTIME #60 03/26/18 tabs lisinopril 20 mg tablet 20 mg PO DAILY #30 tabs 03/26/18 oxycodone 10 mg tablet 10 mg PO Q8H PRN Back Pain #20 tabs 03/26/18 amoxicillin 875 mg-potassium 1 tab PO Q12H #20 tabs 10/07/22 clavulanate 125 mg tablet amoxicillin 875 mg-potassium 1 tab PO BID #20 tabs 04/10/23 clavulanate 125 mg tablet Allergies Allergy/AdvReac Type Severity Reaction Status Date / Time dexamethasone Allergy Verified 04/10/23 13:46 quinine Allergy Verified 04/10/23 13:46 Sulfa (Sulfonamide Allergy Hives Verified 04/10/23 13:46 Antibiotics) Review of Systems <Diomedes Brunner PA-C - Last Filed: 04/10/23 13:58> Review of Systems Narrative: GENERAL: Denies chills, fatigue, malaise, fever, sweats. HEENT: Sinus pain, congestion, right ear pain, Denies sore throat, difficulty swallowing, dizziness. RESPIRATORY: Denies dyspnea, cough, wheezing, hemoptysis, sputum. CARDIOVASCULAR: Denies chest pain, palpitations, orthopnea, edema, GASTROINTESTINAL: Denies nausea, vomiting, abdominal pain, diarrhea, constipation, melena. : Denies dysuria, frequency, incontinence, hematuria, urinary retention. MUSCULOSKELETAL: denies weakness, joint pain, or bony pain SKIN: Denies rash, skin lesions, or other NEUROLOGIC: Denies weakness, headache, numbness, change in speech, confusion, seizures, incoordination. PSYCHIATRIC: No concerning psychosocial issues. 12 point review of systems is negative except for those stated above Patient History <Diomedes Brunner PA-C - Last Filed: 04/10/23 13:58> Medical History Hx of rheumatic fever Osteomyelitis TIA (transient ischemic attack) Family History Father Alcoholism /alcohol abuse Sister Brain aneurysm Mother CAD (coronary artery disease) Social History household members: friend(s) Smoking Status: Never smoker alcohol intake: never Smoking Status: Never smoker alcohol intake frequency: 0-2 drinks per day Substance Use Type: does not use Exam <Diomedes Brunner PA-C - Last Filed: 04/10/23 13:58> Narrative Exam Narrative: GENERAL: Well-developed patient, in mild distress. HEAD: Atraumatic. Normocephalic. EYES: Pupils equal round and reactive. Extraocular motions intact. No scleral icterus. No injection or drainage. ENT: Nose without bleeding, purulent drainage. Throat without erythema, tonsillar hypertrophy or exudate. Airway patent. NECK: Trachea midline. Non tender CARDIOVASCULAR: Regular rate and rhythm without murmurs, gallops, or rubs. RESPIRATORY: Clear to auscultation. Breath sounds equal bilaterally. No wheezes, rales, or rhonchi. GASTROINTESTINAL: Abdomen soft, non-tender, nondistended. EXTREMITIES: No edema or joint tenderness. BACK: Nontender without deformity or crepitance. No flank tenderness. NEURO: AOx3. SKIN: No rash or erythema of visible areas Initial Vital Signs Initial Vital Signs: Vital Signs Temperature 97.6 F 04/10/23 13:44 Pulse Rate 89 04/10/23 13:44 Respiratory Rate 16 04/10/23 13:44 Blood Pressure 138/85 04/10/23 13:44 Pulse Oximetry 99 04/10/23 13:44 Oxygen Delivery Method Room Air 04/10/23 13:44 <DO Abner Solomon Last Filed: 04/15/23 10:06> Initial Vital Signs Initial Vital Signs: Vital Signs Temperature 97.6 F 04/10/23 13:44 Pulse Rate 89 04/10/23 13:44 Respiratory Rate 16 04/10/23 13:44 Blood Pressure 138/85 04/10/23 13:44 Pulse Oximetry 99 04/10/23 13:44 Oxygen Delivery Method Room Air 04/10/23 13:44 Course <IFTIKHAR Lin Last Filed: 04/10/23 13:58> Vital Signs Vital signs: Vital Signs - 8 hr 04/10/23 13:44 Temperature 97.6 F Pulse Rate 89 Respiratory Rate 16 Blood Pressure 138/85 Pulse Oximetry 99 Oxygen Delivery Method Room Air <DO Abner Solomon Last Filed: 04/15/23 10:06> Vital Signs Vital signs: Vital Signs - 8 hr 04/10/23 13:44 Temperature 97.6 F Pulse Rate 89 Respiratory Rate 16 Blood Pressure 138/85 Pulse Oximetry 99 Oxygen Delivery Method Room Air MDM - URI/Sore Throat <IFTIKHAR Lin Last Filed: 04/10/23 13:58> MDM Narrative Medical decision making narrative: MDM * differential diagnosis includes but not limited to bacterial sinusitis, viral URI, COVID, influenza, pneumonia * Prior records reviewed: Patient was seen here approximately a year ago due to acute bacterial sinusitis. History of diabetes. History of rheumatic fever, osteomyelitis, TIA. Patient was prescribed Augmentin. * My lab interpretation: None obtained * My imgaing interpretation: None obtained * Clinical Decision Rules/Scores evaluated: None * Independent discussions with: None ED Course: This is a 77-year-old male presents emergency department due to suspected bacterial sinusitis based on symptoms and duration. We will treat with oral antibiotics. Denies any chest pain, shortness of breath, fevers, low concern for pneumonia. Shared Decision Making: Discussed plan with the patient was comfortable with the plan. Social Considerations: None Disposition: Discharged to home Discharge Plan Departure Patient Disposition: Home Clinical Impression: Acute bacterial sinusitis Activity Restrictions/Additional Instructions: Thank you for coming to the [facility] Emergency Department today. Please take the oral antibiotics as prescribed. I also recommended Leanne Roche to help with the symptoms. I hope you feel better soon. Please follow up with your primary care provider within a week if your symptoms continue. If you do not have a primary care provider please contact the [facility] Resource line at [phone]. They will ask some questions about your medical history and help you get set up with a provider in the community. Prescriptions: New amoxicillin-pot clavulanate 875-125 mg tablet 1 tab PO BID Qty: 20 0RF No Action sennosides [senna] 8.6 mg Tablet 17.2 mg PO BEDTIME Qty: 30 0RF acetaminophen 325 mg Tablet 650 mg PO Q6HR PRN (Reason: As Needed For Fever/Mild Pain) Qty: 30 0RF docusate sodium 100 mg Capsule 100 mg PO BID Qty: 30 0RF amoxicillin-pot clavulanate 875-125 mg tablet 1 tab PO Q12H Qty: 20 0RF acetaminophen 500 mg Tablet 1,000 mg PO BID magnesium hydroxide [Milk of Magnesia] 400 mg/5 mL Suspension 30 ml PO PRN PRN (Reason: Constipation) bisacodyl 10 mg Suppository 10 mg KS DAILY PRN (Reason: Constipation) sodium phosphates [Fleet Enema] 19-7 gram/118 mL Enema KS PRN (Reason: Constipation) bisacodyl 5 mg Tablet,Delayed Release (Dr/Ec) 5 mg PO PRN PRN (Reason: Constipation) insulin lispro 100 unit/mL Insulin Pen subcut ACHS Rx Instructions: sliding scale-give subcutaneously ACHS; 151-250 : give 5 units 251-350 : give 10 units 351-450 : give 15 units lisinopril 20 mg Tablet 20 mg PO DAILY Qty: 30 0RF atorvastatin [Lipitor] 20 mg Tablet 40 mg PO BEDTIME Qty: 60 0RF oxycodone 10 mg tablet 10 mg PO Q8H PRN (Reason: Back Pain) Qty: 20 0RF Referrals: Chloé Nguyen PA-C [Primary Care Provider] - Stand Alone Forms: Patient Portal/API ED Sign-out <Aylin Mariee DO - Last Filed: 04/15/23 10:06> Cosign ED Attending Tirso Attestation: I was available for consultation.
== END 2023-04-10 14:04 | disposition home or self-care (01) ==
PROVIDERS: Emergency Provider Physician Assistant Medical; Family Provider Physician Assistant; PCP Physician Assistant
DX: J01.90 Acute sinusitis, unspecified (principal); B96.89 Other specified bacterial agents as the cause of diseases classified elsewhere
CPT/HCPCS: 99281; 99283

== ENCOUNTER → 2023-10-11 10:53 | Outpatient (CLI) | payer MEDICARE, SELFPAY ==
[2018-03-25 16:31] VITALS: BMI 27.7
[2023-10-11 12:11] LABS: Hemoglobin A1C% w Est Avg Glu 8.5 % (4.0-6.0)
[2023-10-11 12:22] LABS: Alanine Aminotransferase 19 IU/L (<50); Albumin 4.1 g/dL (3.5-5.0); Albumin Globulin Ratio 1.5 (1.0-2.8); Alkaline Phosphatase 78 U/L (38-126); Aspartate Aminotransferase 26 IU/L (17-59); BUN Creatinine Ratio 20.7 (6-22); Bilirubin Total 0.4 mg/dL (0.2-1.3); Blood Urea Nitrogen 41 mg/dL (9-20); Calcium 8.8 mg/dL (8.4-10.2); Carbon Dioxide 18 mmol/L (22-32); Chloride 111 mmol/L (98-107); Cholesterol 232 mg/dL (140-199); Estimated Glomerular Filt Rate 34 mL/min (>60); Globulin 2.7 g/dL (1.7-4.1); Glucose 180 mg/dL (80-110); HDL Cholesterol 36 mg/dL (40-60); HEMOLYSIS < 15 (0-50); Potassium 5.1 mmol/L (3.4-5.1); Sodium 139 mmol/L (137-145); Total Protein 6.8 g/dL (6.3-8.2)
[2023-10-11 12:30] LABS: Triglycerides 705 mg/dL (35-150)
[2023-10-11 12:52] LABS: Prostate Specific Antigen 6.49 ng/mL (0.10-4.00)
== END ==
PROVIDERS: Family Provider Physician Assistant; PCP Physician Assistant; Referring Provider Physician Assistant; Visit Provider Physician Assistant
DX: Z12.5 Encounter for screening for malignant neoplasm of prostate (principal); E11.22 Type 2 diabetes mellitus with diabetic chronic kidney disease; M25.551 Pain in right hip; G89.29 Other chronic pain; I10 Essential (primary) hypertension; E78.2 Mixed hyperlipidemia
CPT/HCPCS: 36415; 80053; 80061; 83036; 84153

== ENCOUNTER 2024-07-23 12:33 | Emergency (ER) | payer MEDICARE, SELFPAY ==
[2018-03-25 16:31] VITALS: BMI 27.7
[2024-07-23 12:57] VITALS: BP 165/81; PULSE 105; RESP 16; TEMP 36.2; O2SAT 99; BMI 26.4
--- NOTE | 2024-07-23 14:04 | ED.HA ---
HPI - Headache <Sulma Douglas PA-C - Last Filed: 07/23/24 16:24> General Chief Complaint: Headache Stated Complaint: Sinus Infection, Can't Sleep Time Seen by Provider: 07/23/24 13:37 Mode of arrival: Ambulatory History of Present Illness HPI Narrative: Mr. Gomez is a pleasant 79-year-old male with a past medical history of chronic back pain on pain management, diabetes, rheumatic fever, osteomyelitis, TIA, HTN, CKD who presents to the emergency department for concern of sinus infection x4 days. Patient reports he is having pounding and pressure-like pain on the left side of his facial sinuses and around the left eye and left upper teeth. States symptoms feel very similar to prior sinus infections that improved with antibiotics. Reports that he has been using Sudafed, nasal saline and nasal Flonase without relief. He denies fevers, chills, nausea, vomiting, cough but states that he is coughing up phlegm frequently. No significant nasal drainage. No visual disturbance. Related Data Home Medications Medication Instructions Recorded Confirmed acetaminophen 500 mg tablet 1,000 mg PO BID pain 03/25/18 03/25/18 bisacodyl 10 mg rectal suppository 10 mg NV DAILY PRN Constipation 03/25/18 03/25/18 bisacodyl 5 mg tablet,delayed 5 mg PO PRN PRN Constipation 03/25/18 03/25/18 release insulin lispro 100 unit/mL SUBCUT ACHS 03/25/18 subcutaneous pen magnesium hydroxide 400 mg/5 mL 30 ml PO PRN PRN Constipation 03/25/18 03/25/18 oral suspension (Milk of Magnesia) sodium phosphates 19 gram-7 NV PRN Constipation 03/25/18 gram/118 mL enema (Fleet Enema) Previous Rx's Medication Instructions Recorded acetaminophen 325 mg tablet 650 mg (2 x 325 mg) PO Q6HR PRN As 03/21/18 Needed For Fever/Mild Pain #30 tabs docusate sodium 100 mg capsule 100 mg PO BID #30 caps 03/21/18 sennosides 8.6 mg tablet (senna) 17.2 mg (2 x 8.6 mg) PO BEDTIME 03/21/18 #30 tabs atorvastatin 20 mg tablet (Lipitor) 40 mg (2 x 20 mg) PO BEDTIME #60 03/26/18 tabs lisinopril 20 mg tablet 20 mg PO DAILY #30 tabs 03/26/18 oxycodone 10 mg tablet 10 mg PO Q8H PRN Back Pain #20 tabs 03/26/18 amoxicillin 875 mg-potassium 1 tab PO Q12H #20 tabs 02/06/22 clavulanate 125 mg tablet amoxicillin 875 mg-potassium 1 tab PO BID #20 tabs 04/10/23 clavulanate 125 mg tablet amoxicillin 875 mg-potassium 1 tab PO Q12H 7 days #14 tabs 07/23/24 clavulanate 125 mg tablet Allergies Allergy/AdvReac Type Severity Reaction Status Date / Time dexamethasone Allergy UNKNOWN Verified 07/23/24 12:57 Sulfa (Sulfonamide AdvReac Hives Verified 07/23/24 12:57 Antibiotics) Review of Systems <Sulma Douglas PA-C - Last Filed: 07/23/24 16:24> Review of Systems ROS Unobtainable: All systems reviewed & are unremarkable except as noted in HPI and below Patient History <Sulma Douglas PA-C - Last Filed: 07/23/24 16:24> Medical History Hx of rheumatic fever TIA (transient ischemic attack) Osteomyelitis Family History Father Alcoholism /alcohol abuse Sister Brain aneurysm Mother CAD (coronary artery disease) Social History household members: friend(s) Smoking Status: Never smoker alcohol intake: never Smoking Status: Never smoker alcohol intake frequency: 0-2 drinks per day Exam <Sulma Douglas PA-C - Last Filed: 07/23/24 16:24> Narrative Exam Narrative: GENERAL: 79 year old patient appears stated age. Well-developed patient, in no acute distress. HEAD: Atraumatic. Normocephalic. Tenderness to palpation of left maxillary and frontal sinus. No overlying erythema or pain with eye movements. EYES: PERRL. Extraocular motions intact. No scleral icterus. No injection or drainage. ENT: Bilateral TMs with fluid air levels but no erythema or bulging. Nose without bleeding, purulent drainage. Throat without erythema, tonsillar hypertrophy or exudate. Airway patent. Chronic poor dentition many missing and carried teeth however no obvious dental abscess. NECK: Trachea midline. Cervical ROM intact. CARDIOVASCULAR: Rate of 101 and regular rhythm. RESPIRATORY: ?Nonlabored respirations. ?Speaking in clear, full sentences. ?Clear to auscultation. Breath sounds equal bilaterally. No wheezes, rales, or rhonchi. ? NEURO: AOx3. ?Clear speech. ?Moves all 4 extremities appropriately. SKIN: No rash or erythema of visible areas Initial Vital Signs Initial Vital Signs: Vital Signs Temperature 97.1 F L 07/23/24 12:57 Pulse Rate 105 H 07/23/24 12:57 Respiratory Rate 16 07/23/24 12:57 Blood Pressure 165/81 H 07/23/24 12:57 Pulse Oximetry 99 07/23/24 12:57 Oxygen Delivery Method Room Air 07/23/24 12:57 <Pepe Mai MD - Last Filed: 07/23/24 20:18> Initial Vital Signs Initial Vital Signs: Vital Signs Temperature 97.1 F L 07/23/24 12:57 Pulse Rate 105 H 07/23/24 12:57 Respiratory Rate 16 07/23/24 12:57 Blood Pressure 165/81 H 07/23/24 12:57 Pulse Oximetry 99 07/23/24 12:57 Oxygen Delivery Method Room Air 07/23/24 12:57 Course <IFTIKHAR Freed Last Filed: 07/23/24 16:24> Vital Signs Vital signs: Vital Signs - 8 hr 07/23/24 12:57 07/23/24 14:37 Temperature 97.1 F L 97.4 F L Pulse Rate 105 H 97 H Respiratory Rate 16 16 Blood Pressure 165/81 H 148/90 H Pulse Oximetry 99 97 Oxygen Delivery Method Room Air Room Air <Pepe Mai MD - Last Filed: 07/23/24 20:18> Vital Signs Vital signs: Vital Signs - 8 hr 07/23/24 12:57 07/23/24 14:37 Temperature 97.1 F L 97.4 F L Pulse Rate 105 H 97 H Respiratory Rate 16 16 Blood Pressure 165/81 H 148/90 H Pulse Oximetry 99 97 Oxygen Delivery Method Room Air Room Air MDM - Headache <IFTIKHAR Freed Last Filed: 07/23/24 16:24> Medical Records Attestation: I reviewed the patient's medical records. MDM Narrative Medical decision making narrative: 79-year-old male with a past medical history of chronic back pain on pain management, diabetes, rheumatic fever, osteomyelitis, TIA, HTN, CKD who presents to the emergency department for concern of sinus infection x4 days. Differential diagnosis includes but is not limited to bacterial sinusitis, viral sinusitis, dental infection, preseptal cellulitis, etc. On exam patient is in no acute distress, nontoxic appearing, vital signs appropriate except for mildly elevated blood pressure and mildly elevated heart rate of 105. Patient denies any fevers or systemic symptoms, states that he is having left sinus pressure and pain consistent with prior sinus infections, states his heart rate is always high due to his chronic back pain however he is also taking Sudafed. He has tenderness to palpation of left maxillary and frontal sinus, chronic poor dentition but no obvious dental abscess. Given patient's medical history and concern for both sinus and dental pain, we will cover with Augmentin b.i.d. x7 days. Did discuss with the patient that sinusitis is often viral in nature however given comorbidities we will treat. Also encouraged nasal saline irrigation, Flonase, Tylenol, he has oxycodone if needed for severe pain. Advised to discontinue [id number] Sudafed at this time. Patient verbalized understanding of all information is agreeable to plan. ED return precautions discussed. He is stable for discharge home. Discharge Plan Departure Patient Disposition: Home Clinical Impression: Sinusitis Qualifiers: Sinusitis location: unspecified location Chronicity: acute Recurrence: not specified as recurrent Qualified Code(s): J01.90 - Acute sinusitis, unspecified Instructions: DI for Sinus Headache Activity Restrictions/Additional Instructions: Thank you for coming to the emergency department. Today you are being treated for a sinus infection with antibiotics. It is very important to complete the full course of antibiotics and also use intranasal Flonase, intranasal saline rinses, and Tylenol. You may stop taking the [id number] Sudafed as this can contribute to elevated blood pressure and heart rate. Please follow up with your primary care doctor within the next 2-3 days for ER follow-up. (If you do not have a PCP you can call [phone]. ?to schedule an appointment with an [facility] Primary Care Provider) IF YOU DEVELOP ANY NEW OR WORSENING SYMPTOMS, RETURN TO THE ER! Please read the attached instructions, they highlight more specific treatments and interventions for you at home. Thank you for letting me participate in your care, Sulma Douglas PA-C Prescriptions: New amoxicillin-pot clavulanate 875-125 mg tablet 1 tab PO Q12H 7 Days Qty: 14 0RF No Action sennosides [senna] 8.6 mg Tablet 17.2 mg PO BEDTIME Qty: 30 0RF acetaminophen 325 mg Tablet 650 mg PO Q6HR PRN (Reason: As Needed For Fever/Mild Pain) Qty: 30 0RF docusate sodium 100 mg Capsule 100 mg PO BID Qty: 30 0RF amoxicillin-pot clavulanate 875-125 mg tablet 1 tab PO Q12H Qty: 20 0RF acetaminophen 500 mg Tablet 1,000 mg PO BID magnesium hydroxide [Milk of Magnesia] 400 mg/5 mL Suspension 30 ml PO PRN PRN (Reason: Constipation) bisacodyl 10 mg Suppository 10 mg NV DAILY PRN (Reason: Constipation) sodium phosphates [Fleet Enema] 19-7 gram/118 mL Enema NV PRN (Reason: Constipation) bisacodyl 5 mg Tablet,Delayed Release (Dr/Ec) 5 mg PO PRN PRN (Reason: Constipation) insulin lispro 100 unit/mL Insulin Pen subcut ACHS Rx Instructions: sliding scale-give subcutaneously ACHS; 151-250 : give 5 units 251-350 : give 10 units 351-450 : give 15 units lisinopril 20 mg Tablet 20 mg PO DAILY Qty: 30 0RF atorvastatin [Lipitor] 20 mg Tablet 40 mg PO BEDTIME Qty: 60 0RF oxycodone 10 mg tablet 10 mg PO Q8H PRN (Reason: Back Pain) Qty: 20 0RF amoxicillin-pot clavulanate 875-125 mg tablet 1 tab PO BID Qty: 20 0RF Referrals: Chloé Nguyen PA-C [Primary Care Provider] - Stand Alone Forms: Patient Portal/API/Survey ED Sign-out <Pepe Mai MD - Last Filed: 07/23/24 20:18> Cosign ED Attending Cosignature Attestation: I was immediately available in the department for consultation. This documentation has been reviewed and I agree with assessment and plan. Supervised by Pepe Mai MD
[2024-07-23 14:37] VITALS: BP 148/90; PULSE 97; RESP 16; TEMP 36.3; O2SAT 97
== END 2024-07-23 14:38 | disposition home or self-care (01) ==
PROVIDERS: Emergency Provider Physician Assistant; Family Provider Physician Assistant; PCP Physician Assistant
DX: J01.90 Acute sinusitis, unspecified (principal)
CPT/HCPCS: 99281

== ENCOUNTER 2024-09-10 23:48 | Emergency (ER) | payer MEDICARE, SELFPAY ==
[2018-03-25 16:31] VITALS: BMI 27.7
[2024-09-10 23:53] VITALS: PULSE 83; O2SAT 98
[2024-09-10 23:55] VITALS: BP 212/95; PULSE 86; RESP 18; TEMP 36.4; O2SAT 99; BMI 27.4
--- NOTE | 2024-09-10 23:58 | ED.GENADULT ---
HPI - General Adult General Chief complaint: Back Pain/Injury Stated complaint: withdrawal Time Seen by Provider: 09/10/24 23:54 History of Present Illness HPI narrative: 79-year-old male has history of chronic low back pain for which he has been taking oxycodone 5 mg tablets 4 times daily, ran out earlier today, feels like he is withdrawing, due to have refill Wednesday morning, the day after tomorrow. He denies alcohol use, other drug use. He has had withdrawal symptoms before, this feels similar. He denies diarrhea. He denies nausea or vomiting. He has increased back pain having not taken his dose through the day today. Related Data Home Medications Medication Instructions Recorded Confirmed acetaminophen 500 mg tablet 1,000 mg PO BID pain 03/25/18 03/25/18 bisacodyl 10 mg rectal suppository 10 mg SC DAILY PRN Constipation 03/25/18 03/25/18 bisacodyl 5 mg tablet,delayed 5 mg PO PRN PRN Constipation 03/25/18 03/25/18 release insulin lispro 100 unit/mL SUBCUT ACHS 03/25/18 subcutaneous pen magnesium hydroxide 400 mg/5 mL 30 ml PO PRN PRN Constipation 03/25/18 03/25/18 oral suspension (Milk of Magnesia) sodium phosphates 19 gram-7 SC PRN Constipation 03/25/18 gram/118 mL enema (Fleet Enema) Previous Rx's Medication Instructions Recorded acetaminophen 325 mg tablet 650 mg (2 x 325 mg) PO Q6HR PRN As 03/21/18 Needed For Fever/Mild Pain #30 tabs docusate sodium 100 mg capsule 100 mg PO BID #30 caps 03/21/18 sennosides 8.6 mg tablet (senna) 17.2 mg (2 x 8.6 mg) PO BEDTIME 03/21/18 #30 tabs atorvastatin 20 mg tablet (Lipitor) 40 mg (2 x 20 mg) PO BEDTIME #60 03/26/18 tabs lisinopril 20 mg tablet 20 mg PO DAILY #30 tabs 03/26/18 oxycodone 10 mg tablet 10 mg PO Q8H PRN Back Pain #20 tabs 03/26/18 amoxicillin 875 mg-potassium 1 tab PO Q12H #20 tabs 02/06/22 clavulanate 125 mg tablet amoxicillin 875 mg-potassium 1 tab PO BID #20 tabs 04/10/23 clavulanate 125 mg tablet oxycodone 5 mg tablet 5 mg PO Q6H PRN pain #10 tabs 09/11/24 oxycodone 5 mg tablet 5 mg PO Q6H PRN pain #7 tabs 09/11/24 Allergies Allergy/AdvReac Type Severity Reaction Status Date / Time dexamethasone Allergy UNKNOWN Verified 07/23/24 12:57 Sulfa (Sulfonamide AdvReac Hives Verified 07/23/24 12:57 Antibiotics) Patient History Medical History Hx of rheumatic fever TIA (transient ischemic attack) Osteomyelitis Family History Father Alcoholism /alcohol abuse Sister Brain aneurysm Mother CAD (coronary artery disease) Social History household members: friend(s) alcohol intake: never alcohol intake frequency: 0-2 drinks per day Exam Narrative Exam Narrative: GENERAL: Well-developed patient, in mild distress. HEAD: Atraumatic. Normocephalic. EYES: Pupils equal round and reactive. Extraocular motions intact. No scleral icterus. No injection or drainage. ENT: Nose without bleeding, purulent drainage. Throat without erythema, tonsillar hypertrophy or exudate. Airway patent. NECK: Trachea midline. Non tender CARDIOVASCULAR: Regular rate and rhythm without murmurs, gallops, or rubs. RESPIRATORY: Clear to auscultation. Breath sounds equal bilaterally. No wheezes, rales, or rhonchi. GASTROINTESTINAL: Abdomen soft, non-tender, nondistended. EXTREMITIES: No edema or joint tenderness. BACK: Nontender without deformity or crepitance. No flank tenderness. NEURO: AOx3. Motor functions grossly nonfocal SKIN: No rash or erythema of visible areas Initial Vital Signs Initial Vital Signs: Vital Signs Pulse Rate 83 09/10/24 23:53 Pulse Oximetry 98 09/10/24 23:53 Course Orders Ordered: Discontinued Medications Thiamine HCl 100 mg/ Dextrose 51 mls @ 204 mls/hr IV NOW ONE Stop: 09/10/24 23:56 Last Admin: 09/11/24 00:07 Dose: Not Given Oxycodone HCl (Oxycodone Ir 5 Mg Tablet) 5 mg PO NOW ONE Stop: 09/11/24 00:00 Last Admin: 09/11/24 00:07 Dose: 5 mg Oxycodone/Acetaminophen (Oxycodone/Apap 5/325 Prepack) 1 bottle MISC DIRECTED ONE Stop: 09/11/24 00:13 Last Admin: 09/11/24 00:15 Dose: 1 bottle Vital Signs Vital signs: Vital Signs - 8 hr 09/10/24 23:53 09/10/24 23:55 09/11/24 00:00 Temperature 97.6 F Pulse Rate 83 86 85 Respiratory Rate 18 Blood Pressure 212/95 H Pulse Oximetry 98 99 99 Oxygen Delivery Method Room Air 09/11/24 00:01 09/11/24 00:01 Temperature Pulse Rate 85 Respiratory Rate Blood Pressure 219/97 H Pulse Oximetry 99 Oxygen Delivery Method Room Air Medical Decision Making MDM Narrative Medical decision making narrative: 79-year-old male with chronic back pain ran out of his oxycodone medication earlier today, feels like he is going into some withdrawal, afebrile, sirs screen negative, not particularly diaphoretic or anxious appearing, no significant midline or paraspinal muscular tenderness on examination low back. Denies diarrhea or abdominal pain. We will give oxycodone 5 mg IR dose now, prescription for the next few tablets. Home pack Percocet 5/325, #4 Tablets. Prescription for oxycodone IR 5 mg strength, #10 Tablets. Follow-up Wednesday in 2d for further opiate chronic med refills as planned. Return precautions discussed. Discharge Plan Departure Patient Disposition: Home Clinical Impression: Medication refill, Chronic low back pain Instructions: Managing Chronic Low Back Pain Activity Restrictions/Additional Instructions: Chronic low back pain, taking oxycodone regular scheduled opiate, ran out earlier today, due for refill Wednesday morning and 36 hours. Elevated blood pressure in context of pain noted. Oral oxycodone dose given, short-term refill prescription sent to your pharmacy. Follow up Wednesday for further refills of your chronic pain medication as planned. Prescriptions: New oxycodone 5 mg tablet 5 mg PO Q6H PRN (Reason: pain) Qty: 7 0RF oxycodone 5 mg tablet 5 mg PO Q6H PRN (Reason: pain) Qty: 10 0RF No Action sennosides [senna] 8.6 mg Tablet 17.2 mg PO BEDTIME Qty: 30 0RF acetaminophen 325 mg Tablet 650 mg PO Q6HR PRN (Reason: As Needed For Fever/Mild Pain) Qty: 30 0RF docusate sodium 100 mg Capsule 100 mg PO BID Qty: 30 0RF amoxicillin-pot clavulanate 875-125 mg tablet 1 tab PO Q12H Qty: 20 0RF acetaminophen 500 mg Tablet 1,000 mg PO BID magnesium hydroxide [Milk of Magnesia] 400 mg/5 mL Suspension 30 ml PO PRN PRN (Reason: Constipation) bisacodyl 10 mg Suppository 10 mg SC DAILY PRN (Reason: Constipation) sodium phosphates [Fleet Enema] 19-7 gram/118 mL Enema SC PRN (Reason: Constipation) bisacodyl 5 mg Tablet,Delayed Release (Dr/Ec) 5 mg PO PRN PRN (Reason: Constipation) insulin lispro 100 unit/mL Insulin Pen subcut ACHS Rx Instructions: sliding scale-give subcutaneously ACHS; 151-250 : give 5 units 251-350 : give 10 units 351-450 : give 15 units lisinopril 20 mg Tablet 20 mg PO DAILY Qty: 30 0RF atorvastatin [Lipitor] 20 mg Tablet 40 mg PO BEDTIME Qty: 60 0RF oxycodone 10 mg tablet 10 mg PO Q8H PRN (Reason: Back Pain) Qty: 20 0RF amoxicillin-pot clavulanate 875-125 mg tablet 1 tab PO BID Qty: 20 0RF Referrals: Chloé Nguyen PA-C [Primary Care Provider] - Stand Alone Forms: Patient Portal/API/Survey
[2024-09-11] VITALS: PULSE 85; O2SAT 99
[2024-09-11 00:01] VITALS: BP 219/97; PULSE 85; O2SAT 99
[2024-09-11] MEDS: OXYCODONE IR 5 MG TABLET PO (00:07)
[2024-09-11] MEDS: OXYCODONE/APAP 5/325 PREPACK 1 BOTTLE MISC (00:15)
== END 2024-09-11 00:20 | disposition home or self-care (01) ==
PROVIDERS: Emergency Provider Emergency Medicine; Family Provider Physician Assistant; PCP Physician Assistant
DX: Z76.0 Encounter for issue of repeat prescription (principal); M54.50 Low back pain, unspecified
CPT/HCPCS: 99283

== ENCOUNTER 2025-02-07 18:36 | Emergency (ER) | payer MEDICARE, SELFPAY ==
[2018-03-25 16:31] VITALS: BMI 27.7
[2025-02-07 18:46] VITALS: BP 192/85; PULSE 84; RESP 16; TEMP 36.8; O2SAT 100; BMI 27.4
--- NOTE | 2025-02-07 18:54 | DI.RAD.S_ITS ---
PROCEDURE: XR CHEST 1V INDICATIONS: Chest Pain TECHNIQUE: One view of the chest was acquired. COMPARISON: [facility], , XR CHEST FOR PICC 1V, 03/16/2018, 17:08. FINDINGS: Surgical changes and devices: None. Lungs and pleura: Lungs are clear. No pleural effusions or pneumothorax. Mediastinum: Mediastinal contours appear normal. Heart size is normal. Bones and chest wall: No suspicious bony lesions. Overlying soft tissues appear unremarkable. IMPRESSION: No acute cardiopulmonary abnormality is seen. Dictated by: Joseph Stack M.D. on 02/07/2025 at 19:48 Approved by: Joseph Stack M.D. on 02/07/2025 at 19:48
--- NOTE | 2025-02-07 18:57 | PC.NURSE ---
This RN directs patient to [facility] to obtain blood work. Patient reports I don't want all that. Education given on why blood work, EKG and chest x-ray will be done. States he only want labs and not an IV. This RN will call lab. Patient states I need to make a phone call first. Patient walks out to [facility] and says I'll let you know and states he will need to make a phone call first again. He is alert and oriented.
== END 2025-02-07 22:09 | disposition left against medical advice (07) ==
PROVIDERS: Emergency Provider Emergency Medicine; Family Provider Physician Assistant; PCP Physician Assistant
DX: R07.9 Chest pain, unspecified (principal)
CPT/HCPCS: 71045; 99281